=== PATIENT | male | born 1940 | race Caucasian/White ===

== ENCOUNTER 2016-05-27 19:46 | Emergency (ER) | payer MEDICARE, OTHER ==
--- NOTE | 2016-05-27 19:36 | EDM.PDOC ---
ED HPI HEAD INJURY - General Chief Complaint: Head Injury Stated Complaint: LACERATION Time Seen by Provider: 05/27/16 19:36 Source of Information: Reports: Patient, Family History Limitations: Reports: No limitations - History of Present Illness INITIAL COMMENTS - FREE TEXT/NARRATIVE: ED with family, reported to have fallen outside going to garage and slipped on ice hit back of head, Patient doesnt remember fall, noted he was not back in house as soon as should be and garbage lid he had gone after was still in back yard. Patient was up right when she got out side, Confused, some difficulty getting back to house. Location: Reports: occipital Severity: moderate Place of Occurrence: home - Related Data Allergies/ADRs: Allergies Allergy/AdvReac Type Severity Reaction Status Date / Time hydrocodone Allergy Delusions Verified 05/27/16 19:34 clams Allergy Vomiting Uncoded 05/27/16 19:34 Home Meds: Home Meds Allopurinol [Zyloprim] 100 mg PO DAILY 11/10/13 [History] Fenofibrate Nanocrystallized [Fenofibrate] 108 mg PO BEDTIME 11/10/13 [History] Glucosamine 1 bottle PO DAILY 11/10/13 [History] Lutein 1 cap PO DAILY 11/10/13 [History] Multivitaminn/Minerals 1 tab PO DAILY 11/10/13 [History] Simvastatin [Zocor] 40 mg PO BEDTIME 11/10/13 [History] Testosterone [Fortesta] 60 gm TD DAILY 11/10/13 [History] Apixaban [Eliquis] 5 mg PO BID 05/27/16 [History] Aspirin [Halfprin] 81 mg PO BRK 05/27/16 [History] Citalopram [Celexa] 10 mg PO DAILY 05/27/16 [History] Loratadine 10 mg PO DAILY 05/27/16 [History] Metoprolol Tartrate 12.5 mg PO BID 05/27/16 [History] Tamsulosin HCl [Flomax] 0.4 mg PO DAILY 05/27/16 [History] rOPINIRole HCl [rOPINIRole] 3 mg PO BEDTIME 05/27/16 [History] Social & Family History - Tobacco Use Smoking Status *Q: Never Smoker Second Hand Smoke Exposure: No - Alcohol Use Days Per Week of Alcohol Use: 0 - Recreational Drug Use Recreational Drug Use: No - Living Situation & Occupation Living situation: Reports: , with spouse Occupation: retired ED ROS GENERAL - Review of Systems Review Of Systems: See Below Constitutional: Reports: no symptoms HEENT: Reports: No symptoms Respiratory: Reports: No Symptoms Cardiovascular: Reports: No symptoms GI/Abdominal: Reports: No symptoms Musculoskeletal: Reports: no symptoms. Denies: neck pain, back pain Skin: Reports: bruising (mid forehead), lumps (upper occipital) Psychiatric: Reports: Confusion (immediate post fall, clearing some poor recall of recent events) ED EXAM, HEAD INJURY - Physical Exam Exam: See Below Exam Limited By: No limitations General Appearance: alert, no apparent distress Head: scalp hematoma (upper occipital mild rased 3cm ), facial ecchymosis ( 2 puple vertical lines 1cm between eyebrows equal distance of nose pieces on glasses). No: atraumatic Nexus Criteria: altered level of consciousness, focal neurological deficit. No : posterior, midline cervical tenderness, painful distracting injuries Eyes: bilateral eye: EOMI Ears: normal external exam, normal TMs Nose: normal inspection Throat/Mouth: Normal inspection Neck: non-tender, full range of motion, normal alignment. No: paraspinous muscle tender, spinous processes tender, tenderness, tender midline Respiratory: no respiratory distress, lungs clear, normal breath sounds Cardiovascular: normal peripheral pulses, regular rate, rhythm, no edema GI/Abdominal Exam (Abbreviated): normal bowel sounds Back Exam: normal inspection Extremities: no evidence of injury, normal range of motion Neurologic: network solutions architect II-XII nml as tested, no motor/sensory deficits, alert, other ( poor recall of event, does not remember getting back in to house. SOme clearing of process by discharge as stating last he can recall is feet up in air.). No: oriented x 3 (off date), aphasia, facial droop - Luis Coma Score Best Eye Response (Luis): (4) open spontaneously Best Verbal Response (Luis): (4) confused conversation Best Motor Response (Luis): (6) obeys commands Luis Total: 14 Course - Vital Signs Last Recorded V/S: Last Vital Signs Temp 97.6 F 05/27/16 19:12 Pulse 95 05/27/16 20:44 Resp 16 05/27/16 19:12 BP 178/118 H 05/27/16 20:44 Pulse Ox 99 05/27/16 19:12 - Orders/Labs/Meds Labs: Laboratory Tests 05/27/16 05/27/16 05/27/16 Range/Units 19:30 19:30 19:30 WBC 9.3 (5.0-10.0) 10^3/uL RBC 4.96 (4.6-6.2) 10^6/uL Hgb 15.5 (14.0-18.0) g/dL Hct 46.5 (40.0-54.0) % MCV 93.8 (80-100) fL MCH 31.3 (27.0-34.0) pg MCHC 33.3 (33.0-35.0) g/dL Plt Count 174 (150-450) 10^3/uL Neut % (Auto) 73.7 (42.2-75.2) % Lymph % (Auto) 15.8 L (20.5-50.1) % [place] % (Auto) 9.5 H (2-8) % Eos % (Auto) 0.6 L (1.0-3.0) % Baso % (Auto) 0.4 (0.0-1.0) % PT 11.2 (9.0-12.0) SEC INR 1.1 (0.9-1.2) Sodium 140 (135-145) mmol/L Potassium 3.7 (3.6-5.0) mmol/L Chloride 100 L (101-111) mmol/L Carbon Dioxide 31.0 (21.0-31.0) mmol/L Anion Gap 12.7 BUN 18 (7-18) mg/dL Creatinine 1.4 H (0.6-1.3) mg/dL Est Cr Clr Drug Dosing 47.81 mL/min Estimated GFR (MDRD) 49 BUN/Creatinine Ratio 12.85 Glucose 101 (74-105) mg/dL Calcium 9.3 (8.4-10.2) mg/dl Total Bilirubin 0.4 (0.2-1.0) mg/dL AST 31 (10-42) IU/L ALT 23 (10-60) IU/L Alkaline Phosphatase 40 L (42-121) IU/L Total Protein 7.3 (6.7-8.2) g/dl Albumin 4.3 (3.2-5.5) g/dl Globulin 3.0 Albumin/Globulin Ratio 1.43 Meds: Medications Discontinued Medications Generic Name Dose Route Start Last Admin Trade Name Claire PRN Reason Stop Dose Admin Acetaminophen 650 mg 05/27/16 20:37 05/27/16 20:54 Tylenol PO 05/27/16 20:38 650 mg NOW ONE Administration Metoprolol Tartrate 2.5 mg 05/27/16 20:36 05/27/16 20:44 Lopressor IVPUSH 05/27/16 20:37 2.5 mg ONETIME ONE Administration - Re-Assessments/Exams Free Text/Narrative Re-Assessment/Exam: 05/27/16 20:[address] Fady Guzman ED accepting of patient in transfer, Tx via [facility] at discharge 15. BP elevated, slight improvment with lopressor. PERRLA. appropriate conversation with and daughter. 05/29/16 07:27 Departure - Departure Time of Disposition: 21:05 Disposition: DC/Tfer to Acute Hospital 02 Condition: undetermined Clinical Impression: Concussion injury of brain, Intracranial hemorrhage Referrals: Salud Odom PA-C [Primary Care Provider] - Forms: ED Department Discharge
[2016-05-27] MEDS ORDERED: Metoprolol Tartrate 5 MG/5 ML SDV IVPUSH ONE (20:36)
[2016-05-27] MEDS ORDERED: Acetaminophen 325 MG Tab PO ONE (20:37)
== END 2016-05-27 21:05 ==
LOC: DL.ED 19:46
DX: S06.340A Traumatic hemorrhage of right cerebrum without loss of consciousness, initial encounter (principal); Z88.8 Allergy status to other drugs, medicaments and biological substances; Z79.899 Other long term (current) drug therapy; W00.9XXA Unspecified fall due to ice and snow, initial encounter
CPT/HCPCS: 36415; 70450; 80053; 85025; 85610; 96374; 99284; 99285; A9270; J3490

== ENCOUNTER 2018-07-18 09:54 | Emergency (ER) | payer OTHER, MEDICARE ==
[2018-07-18] MEDS ORDERED: Oxymetazoline 0.05% Nasal Spray 15 ML Bottle NAS ONE (09:59)
--- NOTE | 2018-07-18 10:39 | EDM.PDOC ---
ED HPI GENERAL MEDICAL PROBLEM - General Chief Complaint: ENT Problem Stated Complaint: BAD NOSE BLEED Time Seen by Provider: 07/18/18 10:15 Source of Information: Reports: Patient History Limitations: Reports: No Limitations - History of Present Illness INITIAL COMMENTS - FREE TEXT/NARRATIVE: This 77 yo male patient reports to the ED with a 2 hour history of a nosebleed. The patient reports he is on Eliquis and has not been able to stop the bleeding at this time. The patient reports he has been attempting to apply direct pressure with only a brief period when the bleeding slowed down. Onset: Today Duration: Hour(s): (2), Constant Location: Reports: Face Quality: Reports: Other Severity: Severe Improves with: Reports: None Worsens with: Reports: None Context: Reports: Other Associated Symptoms: Reports: No Other Symptoms - Related Data Allergies Allergy/AdvReac Type Severity Reaction Status Date / Time hydrocodone Allergy Delusions Verified 05/27/16 19:34 clams Allergy Vomiting Uncoded 05/27/16 19:34 Home Meds: Home Meds Allopurinol [Zyloprim] 100 mg PO DAILY 11/10/13 [History] Fenofibrate Nanocrystallized [Fenofibrate] 108 mg PO BEDTIME 11/10/13 [History] Glucosamine 1 bottle PO DAILY 11/10/13 [History] Lutein 1 cap PO DAILY 11/10/13 [History] Multivitaminn/Minerals 1 tab PO DAILY 11/10/13 [History] Simvastatin [Zocor] 40 mg PO BEDTIME 11/10/13 [History] Testosterone [Fortesta] 60 gm TD DAILY 11/10/13 [History] Apixaban [Eliquis] 5 mg PO BID 05/27/16 [History] Aspirin [Halfprin] 81 mg PO BRK 05/27/16 [History] Citalopram [Celexa] 10 mg PO DAILY 05/27/16 [History] Loratadine 10 mg PO DAILY 05/27/16 [History] Metoprolol Tartrate 12.5 mg PO BID 05/27/16 [History] Tamsulosin HCl [Flomax] 0.4 mg PO DAILY 05/27/16 [History] rOPINIRole HCl [rOPINIRole] 3 mg PO BEDTIME 05/27/16 [History] Social & Family History - Living Situation & Occupation Living situation: Reports: , with Spouse Occupation: Retired ED ROS ENT - Review of Systems Review Of Systems: ROS reveals no pertinent complaints other than HPI. ED EXAM, ENT - Physical Exam Exam: See Below Exam Limited By: No Limitations General Appearance: Alert, WD/WN, Moderate Distress Eye Exam: Bilateral Eye: EOMI, Normal Inspection, PERRL Ears: Normal External Exam, Normal Canal, Hearing Grossly Normal, Normal TMs Nose: Active Bleeding (left nare), Other (Applied bilateral nasal rockets with no change. The left nasal rocket was removed and replaced with a nasal rocket soaked in TXA. The patient continued to bleed. ) Mouth/Throat: Normal Inspection, Normal Gums, Normal Lips, Normal Oropharynx, Normal Teeth Head: Atraumatic, Normocephalic Neck: Normal Inspection, Supple, Non-Tender, Full Range of Motion Respiratory/Chest: No Respiratory Distress, Lungs Clear, Normal Breath Sounds, No Accessory Muscle Use, Chest Non-Tender Cardiovascular: Normal Peripheral Pulses, Regular Rate, Rhythm, No Edema, No Gallop, No JVD, No Murmur, No Rub GI/Abdominal: Normal Bowel Sounds, Soft, Non-Tender, No Organomegaly, No Distention, No Abnormal Bruit, No Mass (Male) Exam: Deferred Rectal (Males) Exam: Deferred Back: Normal Inspection, Full Range of Motion Extremities: Normal Inspection, Normal Range of Motion, Non-Tender, No Pedal Edema, Normal Capillary Refill Neurological: Alert, Oriented, CN II-XII Intact, Normal Cognition, Normal Gait, Normal Reflexes, No Motor/Sensory Deficits Psychiatric: Normal Affect, Normal Mood Skin: Warm, Dry, Intact, Normal Color, No Rash Lymphatic: No Adenopathy Course - Vital Signs Last Recorded V/S: Last Vital Signs Temp 36.8 C 07/18/18 10:15 Pulse 64 07/18/18 10:15 Resp 18 07/18/18 10:15 BP 149/108 H 07/18/18 10:15 Pulse Ox 99 07/18/18 10:15 - Orders/Labs/Meds Meds: Medications Discontinued Medications Generic Name Dose Route Start Last Admin Trade Name Freq PRN Reason Stop Dose Admin Oxymetazoline HCl 1 ml 07/18/18 09:59 Afrin Original 0.05% Nasal [place] MELLISA 07/18/18 10:00 ONETIME ONE Departure - Departure Time of Disposition: 10:39 Disposition: DC/Tfer to Acute Hospital 02 Condition: Serious Clinical Impression: Epistaxis - Discharge Information *PRESCRIPTION DRUG MONITORING PROGRAM REVIEWED*: Not Applicable *COPY OF PRESCRIPTION DRUG MONITORING REPORT IN PATIENT ELLE: Not Applicable Forms: Interfacility Transfer EMTALA Care Plan Goals: Discussed the patient's history, medications and treatments with Dr. Rueda. Dr. Rueda accepted the patient for continued evaluation and management. Initially 2 rhino rockets were placed, but the patient continued to bleed. The left rhino rocket was removed and replaced with a rhino rocket soaked in TXA, but the patient continued to bleed. The patient was transferred by [facility] to [facility] in [place].
[2018-07-18 11:26] LABS: ANION GAP 16.8
== END 2018-07-18 10:55 ==
LOC: DL.ED 09:54
DX: R04.0 Epistaxis (principal); Z79.899 Other long term (current) drug therapy; Z88.6 Allergy status to analgesic agent; Z91.09 Other allergy status, other than to drugs and biological substances
CPT/HCPCS: 36415; 80053; 85025; 85610; 99284; A9270

== ENCOUNTER 2020-01-15 13:27 | Inpatient (IN) | payer MEDICARE, OTHER ==
[2020-01-15] MEDS ORDERED: Zolpidem 5 MG Tab PO PRN (13:52)
[2020-01-15] MEDS ORDERED: Ondansetron 4 MG Tab.DIS PO PRN (13:52)
[2020-01-15] MEDS ORDERED: Ondansetron 4 MG/2 ML SDV IVPUSH PRN (13:52)
[2020-01-15] MEDS ORDERED: Heparin Sodium 5,000 Units/ML Vial SUBCUT SCH (14:00)
[2020-01-15] MEDS: Acetaminophen 325 MG Tab PO PRN (14:58)
[2020-01-15 15:01] LABS: ANION GAP 13.8 mEq/L (7-13); CHLORIDE,CL 97 mmol/L (98-107); SODIUM,NA 133 mmol/L (136-145)
--- NOTE | 2020-01-15 15:24 | PCM.HP ---
H&P History of Present Illness - General Date of Service: 01/15/20 Admit Problem/Dx: Admission Diagnosis/Problem Admission Diagnosis/Problem Shortness of breath Source of Information: Patient - History of Present Illness Initial Comments - Free Text/Narative: 79-year-old gentleman with a history of TIA, dyslipidemia, sleep apnea on CPAP, atrial fibrillation, hypertension, dm. The patient had covid 19 exposure. Presented with shortness of breath to the clinic. he gives a history of few days worsening cough, fever, shortness of breath. Was noted to have 84% room air saturation in the clinic. - Related Data Allergies/Adverse Reactions: Allergies Allergy/AdvReac Type Severity Reaction Status Date / Time hydrocodone Allergy Delusions Verified 01/15/20 14:37 oxycodone Allergy Disorientat Verified 01/15/20 14:37 ion clams Allergy Vomiting Uncoded 01/15/20 14:37 Home Medications: Home Meds Glucosamine 1 bottle PO DAILY 11/10/13 [History] Lutein 1 cap PO DAILY 11/10/13 [History] Multivitaminn/Minerals 1 tab PO DAILY 11/10/13 [History] Simvastatin [Zocor] 40 mg PO BEDTIME 11/10/13 [History] allopurinoL [Zyloprim] 100 mg PO DAILY 11/10/13 [History] Apixaban [Eliquis] 5 mg PO BID 05/27/16 [History] Aspirin [Halfprin] 81 mg PO BRK 05/27/16 [History] Citalopram [Celexa] 10 mg PO DAILY 05/27/16 [History] Loratadine 10 mg PO DAILY 05/27/16 [History] Metoprolol Tartrate 12.5 mg PO BID 05/27/16 [History] Tamsulosin HCl [Flomax] 0.4 mg PO DAILY 05/27/16 [History] rOPINIRole HCl [rOPINIRole] 3 mg PO BEDTIME 05/27/16 [History] Fenofibrate 108 mg PO BEDTIME 01/15/20 [History] Furosemide 40 mg PO DAILY 01/15/20 [History] Gabapentin [Neurontin] 300 mg PO BEDTIME 01/15/20 [History] glipiZIDE [Glucotrol] 5 mg PO BID 01/15/20 [History] Past Medical History HEENT History: Reports: Cataract, Impaired Vision Other HEENT History: wears glasses Cardiovascular History: Reports: Afib, High Cholesterol, Hypertension Respiratory History: Reports: Sleep Apnea Other Respiratory History: sleeps with cpap machine Gastrointestinal History: Reports: GERD Other Gastrointestinal History: rectal bleeding requiring blood transfusions Genitourinary History: Reports: Prostate Disorder Musculoskeletal History: Reports: Arthritis, Fracture, Gout Other Musculoskeletal History: hands and knees, uses glycosamine, 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 Psychiatric History: Reports: Anxiety Immunologic History: Reports: None Oncologic (Cancer) History: Reports: None Dermatologic History: Reports: None - Infectious Disease History Infectious Disease History: Reports: Chicken Pox, Measles, Mumps - Past Surgical History HEENT Surgical History: Reports: Cataract Surgery, Eye Surgery Cardiovascular Surgical History: Reports: None, Other (See Below) Other Cardiovascular Surgeries/Procedures: cardioversion Respiratory Surgical History: Reports: None GI Surgical History: Reports: Appendectomy, Cholecystectomy Male Surgical History: Reports: None Musculoskeletal Surgical History: Reports: None Social & Family History - Caffeine Use Caffeine Use: Reports: Other Other Caffeine Use: mostly decaff coffee - Living Situation & Occupation Living situation: Reports: , with Spouse Occupation: Retired H&P Review of Systems - Review of Systems: Review Of Systems: See Below General: Reports: Fever, Chills Pulmonary: Reports: Shortness of Breath Cardiovascular: Denies: Chest Pain, Edema Gastrointestinal: Denies: Abdominal Pain Psychiatric: Denies: Confusion Exam - Exam Exam: See Below - Vital Signs Vital Signs: Last Vital Signs Temp 100.2 F 01/15/20 13:53 Pulse 101 H 01/15/20 13:53 Resp 20 01/15/20 13:53 BP 117/68 01/15/20 13:53 Pulse Ox 93 L 01/15/20 13:53 Weight: 240 lb - Exam Quality Assessment: Supplemental Oxygen General: Alert, Oriented Neck: Supple Lungs: Normal Respiratory Effort, Decreased Breath Sounds Cardiovascular: Irregular Rhythm GI/Abdominal Exam: Normal Bowel Sounds, Soft, Non-Tender, Other (obese) Skin: Warm, Dry Neuro Extensive - Mental Status: Alert, Oriented x3, Normal Mood/Affect Psychiatric: Alert, Normal Affect, Normal Mood - Patient Data Lab Results Last 24 hrs: Laboratory Results - last 24 hr 11/11/2501/15/20 01/15/20 Range/Units 13:55 14:30 14:30 WBC 6.2 (5.0-10.0) 10^3/uL RBC 3.96 L (4.6-6.2) 10^6/uL Hgb 12.5 L D (14.0-18.0) g/dL Hct 36.7 L (40.0-54.0) % MCV 92.7 (80-100) fL MCH 31.6 (27.0-34.0) pg MCHC 34.1 (33.0-35.0) g/dL Plt Count 163 (150-450) 10^3/uL Neut % (Auto) 84.1 H (42.2-75.2) % Lymph % (Auto) 6.3 L (20.5-50.1) % [place] % (Auto) 9.4 H (2-8) % Eos % (Auto) 0.0 L (1.0-3.0) % Baso % (Auto) 0.2 (0.0-1.0) % D-Dimer, Quantitative 900 H (0-400) ng/mL Sodium (136-145) mmol/L Potassium (3.5-5.1) mmol/L Chloride (98-107) mmol/L Carbon Dioxide (21-32) mmol/L Anion Gap (7-13) mEq/L BUN (7-18) mg/dL Creatinine (0.70-1.30) mg/dL Est Cr Clr Drug Dosing mL/min Estimated GFR (MDRD) Glucose (74-99) mg/dL Calcium (8.5-10.1) mg/dL Troponin I (0.000-0.056) ng/mL B-Natriuretic Peptide (0-100) pg/ml SARS CoV-2 RNA Rapid DORITA Positive H (NEGATIVE) 01/15/20 Range/Units 14:30 WBC (5.0-10.0) 10^3/uL RBC (4.6-6.2) 10^6/uL Hgb (14.0-18.0) g/dL Hct (40.0-54.0) % MCV (80-100) fL MCH (27.0-34.0) pg MCHC (33.0-35.0) g/dL Plt Count (150-450) 10^3/uL Neut % (Auto) (42.2-75.2) % Lymph % (Auto) (20.5-50.1) % [place] % (Auto) (2-8) % Eos % (Auto) (1.0-3.0) % Baso % (Auto) (0.0-1.0) % D-Dimer, Quantitative (0-400) ng/mL Sodium 133 L (136-145) mmol/L Potassium 3.8 (3.5-5.1) mmol/L Chloride 97 L (98-107) mmol/L Carbon Dioxide 26 (21-32) mmol/L Anion Gap 13.8 H (7-13) mEq/L BUN 26 H (7-18) mg/dL Creatinine 1.62 H (0.70-1.30) mg/dL Est Cr Clr Drug Dosing 38.73 mL/min Estimated GFR (MDRD) 41 Glucose 97 (74-99) mg/dL Calcium 8.5 (8.5-10.1) mg/dL Troponin I < 0.017 (0.000-0.056) ng/mL B-Natriuretic Peptide 84 (0-100) pg/ml SARS CoV-2 RNA Rapid DORITA (NEGATIVE) Result Diagrams: 01/15/20 14:30 01/15/20 14:30 - Problem List (1) Pneumonia due to COVID-19 virus SNOMED Code(s): 617740702903406946 ICD Code: U07.1 - COVID-19; J12.89 - OTHER VIRAL PNEUMONIA Status: Acute Current Visit: Yes (2) Acute hypoxemic respiratory failure SNOMED Code(s): 804696127 ICD Code: J96.01 - ACUTE RESPIRATORY FAILURE WITH HYPOXIA Status: Acute Current Visit: Yes (3) Afib SNOMED Code(s): 89815036 ICD Code: I48.91 - UNSPECIFIED ATRIAL FIBRILLATION Status: Acute Current Visit: Yes (4) Diabetes SNOMED Code(s): 65667986 ICD Code: E11.9 - TYPE 2 DIABETES MELLITUS WITHOUT COMPLICATIONS Status: Acute Current Visit: Yes (5) RODO on CPAP SNOMED Code(s): 16564121 ICD Code: G47.33 - OBSTRUCTIVE SLEEP APNEA (ADULT) (PEDIATRIC); Z99.89 - DEPENDENCE ON OTHER ENABLING MACHINES AND DEVICES Status: Acute Current Visit: Yes Problem List Initiated/Reviewed/Updated: Yes Orders Last 24hrs: Active Orders 24 hr Category Date Time Status Patient Status [ADT] Routine ADT 01/15/20 13:53 Active Oxygen Therapy [RC] PRN Care 01/15/20 13:53 Active Peripheral IV Care [RC] . DIRECTED Care 01/15/20 13:57 Active Up With Assistance [RC] ASDIRECTED Care 01/15/20 13:52 Active VTE/DVT Education [RC] PER UNIT ROUTINE Care 01/15/20 13:53 Active Vital Signs [RC] Q4H Care 01/15/20 13:53 Active Regular Diet [DIET] Diet 01/15/20 Dinner Active Chest 1V Frontal [CR] Routine Exams 01/15/20 14:36 Ordered Acetaminophen [TylenoL] Med 01/15/20 13:52 Active 650 mg PO Q4H PRN Heparin Sodium Med 01/15/20 14:00 Pending 5,000 units SUBCUT Q8HR Ondansetron [Zofran ODT] Med 01/15/20 13:52 Active 4 mg PO Q6H PRN Ondansetron [Zofran] Med 01/15/20 13:52 Active 4 mg IVPUSH Q6H PRN Sodium Chloride 0.9% [Saline Flush] Med 01/15/20 13:52 Active 10 ml FLUSH ASDIRECTED PRN Zolpidem [Ambien] Med 01/15/20 13:52 Active 5 mg PO BEDTIME PRN Peripheral IV Insertion Adult [OM.PC] Routine Oth 01/15/20 13:52 Ordered Saline Lock Insert [OM.PC] Routine Oth 01/15/20 13:52 Ordered Resuscitation Status Routine Resus Stat 01/15/20 13:52 Ordered Medication Orders Acetaminophen (Tylenol) 650 mg PO Q4H PRN PRN Reason: Pain (Mild 1-3)/fever Last Admin: 01/15/20 14:58 Dose: 650 mg Documented by: EROS Heparin Sodium (Porcine) (Heparin Sodium) 5,000 units SUBCUT Q8HR OSEI Ondansetron HCl (Zofran Odt) 4 mg PO Q6H PRN PRN Reason: nausea, able to take PO Ondansetron HCl (Zofran) 4 mg IVPUSH Q6H PRN PRN Reason: Nausea/Vomiting Sodium Chloride (Saline Flush) 10 ml FLUSH ASDIRECTED PRN PRN Reason: Keep Vein Open Zolpidem Tartrate (Ambien) 5 mg PO BEDTIME PRN PRN Reason: Sleep Assessment/Plan Comment:: presented with shortness of breath, cough, fever. Noted to have hypoxemia in the clinic. Acute hypoxemic respiratory failure secondary to Covid 19 pneumonia Supplement oxygen as needed Covid 19 pneumonia Known exposure symptoms started around 10 january Positive covid 19 screen on 01/13 pulmonary symptoms of cough, sob associated with hypoxemia 84% on RA 01/14 in clinic LFT,. pending Renal fx: gfr>30 on admission treat with Remdesivir 01/14- follow renal fx. Dexamethasone 01/14- Plasma 01/14 and 01/15 evaluate for concurrent bacterial infections Follow pro-calcitonin levels In the meantime hold Abx Ddimer is high DVT prophylaxis with Apixaban Diabetes Hold metformin Continue glipizide Follow blood sugars Use supplemental insulin and hypoglycemia treatment as needed Obstructive sleep apnea Use CPAP at night Coronary artery disease Continue aspirin, metoprolol, Hold statin while on remdesivir Atrial fibrillation Rate control with metoprolol Continue anticoagulation with apixaban Discussed CODE STATUS with patient on admission Patient elects full CODE STATUS.
[2020-01-15] MEDS ORDERED: 50% Dextrose in Water 50 ML Syringe IVPUSH PRN (15:28)
[2020-01-15] MEDS ORDERED: Glucagon,Human Recombinant 1 MG Vial IM PRN (15:28)
[2020-01-15] MEDS ORDERED: 50% Dextrose in Water 50 ML Syringe IV PRN (15:28)
--- NOTE | 2020-01-15 15:39 | CR ---
EXAMINATION: Chest 1V Frontal SEX: Male AGE: 79 years CLINICAL HISTORY: 79-year-old HYPOXIC male. No comparison films immediately available for this hospitalized patient. Interpretation: Abnormal. 1. Subtle patchy nonconsolidated densities periphery of right mid lung and left lung base. Covid test? 2. Normal cardiac silhouette (size and configuration). No pulmonary vascular congestion, cephalization of flow or alveolar edema. 3. No lung mass or hilar/mediastinal lymphadenopathy. 4. Blunting of the right costophrenic sulcus that may represent small dependent pleural effusion or old pleural reactive scarring. 5. No pneumothorax or pneumomediastinum. Midline tracheal bronchial airway unremarkable.
[2020-01-15] MEDS: Insulin Lispro 100 Units/ML 3 ML Vial SUBCUT SCH ×2 (17:30→21:21)
[2020-01-15] MEDS: Sodium Chloride 0.9% 10 ML Syringe IV SCH (18:21)
[2020-01-15] MEDS ORDERED: ROPINIROLE HCL 3 MG PO SCH (21:00)
[2020-01-15] MEDS ORDERED: glipiZIDE 5 MG Tab PO SCH (21:00)
[2020-01-15] MEDS: rOPINIRole 2 MG Tab PO SCH (21:20)
[2020-01-15] MEDS: Gabapentin 300 MG Cap PO SCH (21:20)
[2020-01-15] MEDS: Apixaban 5 MG Tab PO SCH (21:20)
[2020-01-15] MEDS: Metoprolol Tartrate 25 MG Tab PO SCH (21:21)
[2020-01-16 07:27] LABS: ANION GAP 14.7 mEq/L (7-13)
[2020-01-16] MEDS: Sodium Chloride 0.9% 10 ML Syringe FLUSH PRN ×3 (08:33→15:49)
[2020-01-16] MEDS: Insulin Lispro 100 Units/ML 3 ML Vial SUBCUT SCH ×4 (08:34→21:24)
[2020-01-16] MEDS: Citalopram 20 MG Tab PO SCH (08:34)
[2020-01-16] MEDS: Loratadine 10 MG Tab PO SCH (08:35)
[2020-01-16] MEDS: rOPINIRole 2 MG Tab PO SCH ×3 (08:35→21:22)
[2020-01-16] MEDS: Metoprolol Tartrate 25 MG Tab PO SCH ×2 (08:35→21:22)
[2020-01-16] MEDS: Multivitamins, Therapeutic with Minerals Tab PO SCH (08:36)
[2020-01-16] MEDS: Allopurinol 100 MG Tab PO SCH (08:37)
[2020-01-16] MEDS: Tamsulosin 0.4 MG Cap.ER PO SCH (08:37)
[2020-01-16] MEDS: Acetaminophen 325 MG Tab PO PRN ×2 (08:37→23:49)
[2020-01-16] MEDS: Apixaban 5 MG Tab PO SCH ×2 (08:37→21:22)
--- NOTE | 2020-01-16 16:02 | PCM.PN ---
- General Info Date of Service: 01/16/20 Subjective Update: feeling better. no fever last night. Shortness of breath is better but still present. Occasional cough. No sputum. Has remained on oxygen. - Review of Systems General: Denies: Fever Pulmonary: Reports: Shortness of Breath Cardiovascular: Denies: Chest Pain, Edema Genitourinary: Denies: Dysuria, Hematuria - Patient Data Vitals - Most Recent: Last Vital Signs Temp 98.9 F 01/16/20 12:09 Pulse 89 01/16/20 12:09 Resp 20 01/16/20 12:09 BP 122/75 01/16/20 12:09 Pulse Ox 94 L 01/16/20 12:09 Weight - Most Recent: 240 lb I&O - Last 24 Hours: Intake & Output 01/16/20 01/16/20 01/16/20 06:59 14:59 22:59 Intake Total 1432 Balance 1432 Lab Results Last 24 Hours: Laboratory Results - last 24 hr 01/15/20 01/15/20 01/15/20 Range/Units 14:30 14:30 14:30 WBC (5.0-10.0) 10^3/uL RBC (4.6-6.2) 10^6/uL Hgb (14.0-18.0) g/dL Hct (40.0-54.0) % MCV (80-100) fL MCH (27.0-34.0) pg MCHC (33.0-35.0) g/dL Plt Count (150-450) 10^3/uL Neut % (Auto) (42.2-75.2) % Lymph % (Auto) (20.5-50.1) % Smyth % (Auto) (2-8) % Eos % (Auto) (1.0-3.0) % Baso % (Auto) (0.0-1.0) % D-Dimer, Quantitative (0-400) ng/mL Sodium (136-145) mmol/L Potassium (3.5-5.1) mmol/L Chloride (98-107) mmol/L Carbon Dioxide (21-32) mmol/L Anion Gap (7-13) mEq/L BUN (7-18) mg/dL Creatinine (0.70-1.30) mg/dL Est Cr Clr Drug Dosing mL/min Estimated GFR (MDRD) Glucose (74-99) mg/dL POC Glucose (83-110) mg/dl Lactic Acid 1.6 (0.4-2.0) mmol/L Calcium (8.5-10.1) mg/dL Ferritin (26-388) mg/mL Total Bilirubin 0.6 (0.2-1.0) mg/dL Direct Bilirubin 0.2 (0.0-0.2) mg/dL Indirect Bilirubin 0.4 AST 54 H (15-37) U/L ALT 29 (16-63) U/L Alkaline Phosphatase 48 (46-116) U/L Total Protein 6.9 (6.4-8.2) g/dL Albumin 2.7 L (3.4-5.0) g/dL Globulin 4.2 Albumin/Globulin Ratio 0.64 Blood Type A POSITIVE 01/15/20 01/15/20 01/16/20 Range/Units 16:27 21:18 06:33 WBC 5.9 (5.0-10.0) 10^3/uL RBC 4.01 L (4.6-6.2) 10^6/uL Hgb 12.4 L (14.0-18.0) g/dL Hct 37.2 L (40.0-54.0) % MCV 92.8 (80-100) fL MCH 30.9 (27.0-34.0) pg MCHC 33.3 (33.0-35.0) g/dL Plt Count 186 (150-450) 10^3/uL Neut % (Auto) 78.2 H (42.2-75.2) % Lymph % (Auto) 11.4 L (20.5-50.1) % Smyth % (Auto) 10.0 H (2-8) % Eos % (Auto) 0.2 L (1.0-3.0) % Baso % (Auto) 0.2 (0.0-1.0) % D-Dimer, Quantitative (0-400) ng/mL Sodium (136-145) mmol/L Potassium (3.5-5.1) mmol/L Chloride (98-107) mmol/L Carbon Dioxide (21-32) mmol/L Anion Gap (7-13) mEq/L BUN (7-18) mg/dL Creatinine (0.70-1.30) mg/dL Est Cr Clr Drug Dosing mL/min Estimated GFR (MDRD) Glucose (74-99) mg/dL POC Glucose 67 L 87 (83-110) mg/dl Lactic Acid (0.4-2.0) mmol/L Calcium (8.5-10.1) mg/dL Ferritin (26-388) mg/mL Total Bilirubin (0.2-1.0) mg/dL Direct Bilirubin (0.0-0.2) mg/dL Indirect Bilirubin AST (15-37) U/L ALT (16-63) U/L Alkaline Phosphatase (46-116) U/L Total Protein (6.4-8.2) g/dL Albumin (3.4-5.0) g/dL Globulin Albumin/Globulin Ratio Blood Type 01/16/20 01/16/20 01/16/20 Range/Units 06:33 06:33 06:33 WBC (5.0-10.0) 10^3/uL RBC (4.6-6.2) 10^6/uL Hgb (14.0-18.0) g/dL Hct (40.0-54.0) % MCV (80-100) fL MCH (27.0-34.0) pg MCHC (33.0-35.0) g/dL Plt Count (150-450) 10^3/uL Neut % (Auto) (42.2-75.2) % Lymph % (Auto) (20.5-50.1) % Smyth % (Auto) (2-8) % Eos % (Auto) (1.0-3.0) % Baso % (Auto) (0.0-1.0) % D-Dimer, Quantitative 1410 H (0-400) ng/mL Sodium 134 L (136-145) mmol/L Potassium 3.7 (3.5-5.1) mmol/L Chloride 98 (98-107) mmol/L Carbon Dioxide 25 (21-32) mmol/L Anion Gap 14.7 H (7-13) mEq/L BUN 27 H (7-18) mg/dL Creatinine 1.64 H (0.70-1.30) mg/dL Est Cr Clr Drug Dosing 38.26 mL/min Estimated GFR (MDRD) 41 Glucose 92 (74-99) mg/dL POC Glucose (83-110) mg/dl Lactic Acid (0.4-2.0) mmol/L Calcium 8.5 (8.5-10.1) mg/dL Ferritin 436 H (26-388) mg/mL Total Bilirubin 0.6 (0.2-1.0) mg/dL Direct Bilirubin 0.2 (0.0-0.2) mg/dL Indirect Bilirubin 0.4 AST 61 H (15-37) U/L ALT 30 (16-63) U/L Alkaline Phosphatase 51 (46-116) U/L Total Protein 6.7 (6.4-8.2) g/dL Albumin 2.6 L (3.4-5.0) g/dL Globulin 4.1 Albumin/Globulin Ratio 0.63 Blood Type 01/16/20 01/16/20 Range/Units 08:12 12:08 WBC (5.0-10.0) 10^3/uL RBC (4.6-6.2) 10^6/uL Hgb (14.0-18.0) g/dL Hct (40.0-54.0) % MCV (80-100) fL MCH (27.0-34.0) pg MCHC (33.0-35.0) g/dL Plt Count (150-450) 10^3/uL Neut % (Auto) (42.2-75.2) % Lymph % (Auto) (20.5-50.1) % Smyth % (Auto) (2-8) % Eos % (Auto) (1.0-3.0) % Baso % (Auto) (0.0-1.0) % D-Dimer, Quantitative (0-400) ng/mL Sodium (136-145) mmol/L Potassium (3.5-5.1) mmol/L Chloride (98-107) mmol/L Carbon Dioxide (21-32) mmol/L Anion Gap (7-13) mEq/L BUN (7-18) mg/dL Creatinine (0.70-1.30) mg/dL Est Cr Clr Drug Dosing mL/min Estimated GFR (MDRD) Glucose (74-99) mg/dL POC Glucose 83 102 (83-110) mg/dl Lactic Acid (0.4-2.0) mmol/L Calcium (8.5-10.1) mg/dL Ferritin (26-388) mg/mL Total Bilirubin (0.2-1.0) mg/dL Direct Bilirubin (0.0-0.2) mg/dL Indirect Bilirubin AST (15-37) U/L ALT (16-63) U/L Alkaline Phosphatase (46-116) U/L Total Protein (6.4-8.2) g/dL Albumin (3.4-5.0) g/dL Globulin Albumin/Globulin Ratio Blood Type Jayro Results Last 24 Hours: Microbiology 01/15/20 14:30 Aerobic Blood Culture - Preliminary Blood - Venous - Iv Start NO GROWTH AFTER 1 DAY Anaerobic Blood Culture - Final Med Orders - Current: Current Medications Acetaminophen (Tylenol) 650 mg PO Q4H PRN PRN Reason: Pain (Mild 1-3)/fever Last Admin: 01/16/20 08:37 Dose: 650 mg Documented by: Allopurinol (Zyloprim) 100 mg PO DAILY [facility] Last Admin: 01/16/20 08:37 Dose: 100 mg Documented by: Apixaban (Eliquis) 5 mg PO BID [facility] Last Admin: 01/16/20 08:37 Dose: 5 mg Documented by: Aspirin (Halfprin) 81 mg PO BEDTIME [facility] Citalopram Hydrobromide (Celexa) 10 mg PO DAILY [facility] Last Admin: 01/16/20 08:34 Dose: 10 mg Documented by: Dextrose/Water (Dextrose 50% In Water) 25 ml IVPUSH Q1H PRN PRN Reason: blood sugar <70 Dextrose/Water (Dextrose 50% In Water) 50 ml IV ASDIRECTED PRN PRN Reason: Hypoglycemia Gabapentin (Neurontin) 300 mg PO BEDTIME [facility] Last Admin: 01/15/20 21:20 Dose: 300 mg Documented by: Glucagon (Glucagen) 1 mg IM ASDIRECTED PRN PRN Reason: Hypoglycemia Remdesivir 100 mg/ Sodium (Chloride) 230 mls @ 230 mls/hr IV Q24H [facility] Stop: 01/19/20 16:59 Last Admin: 01/16/20 15:49 Dose: 230 mls/hr Documented by: Insulin Human Lispro (Humalog) 0 unit SUBCUT WITHMEALSANDBED [facility]; Protocol Last Admin: 01/16/20 12:08 Dose: Not Given Documented by: Loratadine (Claritin) 10 mg PO DAILY [facility] Last Admin: 01/16/20 08:35 Dose: 10 mg Documented by: Metoprolol Tartrate (Lopressor) 12.5 mg PO BID [facility] Last Admin: 01/16/20 08:35 Dose: 12.5 mg Documented by: Multivitamins/Minerals (Vitamins And Minerals) 1 tab PO DAILY [facility] Last Admin: 01/16/20 08:36 Dose: 1 tab Documented by: Ondansetron HCl (Zofran Odt) 4 mg PO Q6H PRN PRN Reason: nausea, able to take PO Ondansetron HCl (Zofran) 4 mg IVPUSH Q6H PRN PRN Reason: Nausea/Vomiting Fenofibrate 54 Mg (Tab *Own Med*) 0 each PO BEDTIME [facility] Ropinirole HCl (Requip) 2 mg PO TID [facility] Last Admin: 01/16/20 15:49 Dose: 2 mg Documented by: Sodium Chloride (Saline Flush) 10 ml FLUSH ASDIRECTED PRN PRN Reason: Keep Vein Open Last Admin: 01/16/20 15:49 Dose: 10 ml Documented by: Sodium Chloride (Saline Flush) 30 ml IV DAILY@1700 [facility] Stop: 01/19/20 17:01 Last Admin: 01/15/20 18:21 Dose: 30 ml Documented by: Tamsulosin HCl (Flomax) 0.4 mg PO DAILY [facility] Last Admin: 01/16/20 08:37 Dose: 0.4 mg Documented by: Zolpidem Tartrate (Ambien) 5 mg PO BEDTIME PRN PRN Reason: Sleep Discontinued Medications Glipizide (Glucotrol) 5 mg PO BID [facility] Last Admin: 01/15/20 21:21 Dose: Not Given Documented by: Heparin Sodium (Porcine) (Heparin Sodium) 5,000 units SUBCUT Q8HR [facility] Last Admin: 01/15/20 17:38 Dose: Not Given Documented by: Remdesivir 200 mg/ Sodium (Chloride) 210 mls @ 210 mls/hr IV ONETIME ONE Stop: 01/15/20 16:59 Last Admin: 01/15/20 16:23 Dose: 210 mls/hr Documented by: - Exam Quality Assessment: Supplemental Oxygen General: Alert, Oriented Neck: Supple Lungs: Normal Respiratory Effort, Decreased Breath Sounds, Wheezing (mild bilateral) Cardiovascular: Regular Rate, Regular Rhythm GI/Abdominal Exam: Normal Bowel Sounds, Soft, Non-Tender Extremities: No Pedal Edema Skin: Warm Psy/Mental Status: Alert, Normal Affect, Normal Mood Sepsis Event Note - Evaluation Sepsis Screening Result: No Definite Risk - Focused Exam Vital Signs: Vital Signs Temp Temp Pulse Pulse Resp BP BP 01/16/20 12:09 98.9 F 89 20 122/75 01/16/20 11:31 98.9 F 88 20 123/78 01/16/20 11:28 97.8 F 90 20 122/71 01/16/20 11:00 99 F 94 20 124/75 01/16/20 10:27 98.9 F 113 H 20 125/78 01/16/20 09:55 98.7 F 92 20 124/77 01/16/20 09:40 99.8 F 93 20 117/70 01/16/20 09:26 99.7 F 97 20 125/71 01/16/20 09:13 99.7 F 96 20 120/72 01/16/20 08:35 95 119/76 01/16/20 08:19 100.0 F 95 22 H 01/16/20 04:00 99.2 F 98 20 115/57 L BP Pulse Ox 01/16/20 12:09 94 L 01/16/20 11:31 94 L 01/16/20 11:28 93 L 01/16/20 11:00 93 L 01/16/20 10:27 92 L 01/16/20 09:55 93 L 01/16/20 09:40 91 L 01/16/20 09:26 91 L 01/16/20 09:13 91 L 01/16/20 08:35 01/16/20 08:19 119/76 90 L 01/16/20 04:00 92 L - Problem List & Annotations (1) Pneumonia due to COVID-19 virus SNOMED Code(s): 399173311084081091 Code(s): U07.1 - COVID-19; J12.89 - OTHER VIRAL PNEUMONIA Status: Acute Current Visit: Yes (2) Acute hypoxemic respiratory failure SNOMED Code(s): 318805015 Code(s): J96.01 - ACUTE RESPIRATORY FAILURE WITH HYPOXIA Status: Acute Current Visit: Yes (3) Afib SNOMED Code(s): 80606204 Code(s): I48.91 - UNSPECIFIED ATRIAL FIBRILLATION Status: Acute Current Visit: Yes (4) Diabetes SNOMED Code(s): 44809911 Code(s): E11.9 - TYPE 2 DIABETES MELLITUS WITHOUT COMPLICATIONS Status: Acute Current Visit: Yes (5) RODO on CPAP SNOMED Code(s): 24682301 Code(s): G47.33 - OBSTRUCTIVE SLEEP APNEA (ADULT) (PEDIATRIC); Z99.89 - DEPENDENCE ON OTHER ENABLING MACHINES AND DEVICES Status: Acute Current Visit: Yes - Problem List Review Problem List Initiated/Reviewed/Updated: Yes - My Orders Last 24 Hours: My Active Orders 01/15/20 15:28 CPAP Adult [RT BiPAP/CPAP] [RC] ASDIRECTED Glucose [Blood Glucose Check, Bedside] [RC] QIDACANDBED Dextrose 50% in Water 25 ml IVPUSH Q1H PRN Dextrose 50% in Water 50 ml IV ASDIRECTED PRN Glucagon,Human Recombinant [GlucaGen] 1 mg IM ASDIRECTED PRN 01/15/20 15:39 Verify Patient Consent Obtain [RC] ASDIRECTED Transfuse Fresh Frozen Plasma [COMM] Routine 01/15/20 15:43 Isolation [COMM] Stat 01/15/20 15:44 CULTURE SPUTUM + SMEAR [RM] Routine 01/15/20 16:02 Patient Status [ADT] Routine 01/15/20 17:00 Sodium Chloride 0.9% [Saline Flush] 30 ml IV DAILY@1700 01/15/20 Dinner Regular Diet [DIET] 01/15/20 18:00 Insulin Lispro [HumaLOG] See Protocol SUBCUT WITHMEALSANDBED 01/15/20 21:00 Apixaban [Eliquis] 5 mg PO BID Gabapentin [Neurontin] 300 mg PO BEDTIME Metoprolol Tartrate [Lopressor] 12.5 mg PO BID rOPINIRole [Requip] 2 mg PO TID 01/16/20 06:33 PROCALCITONIN [REF] DAILY 01/16/20 09:00 Citalopram [Celexa] 10 mg PO DAILY Loratadine [Claritin] 10 mg PO DAILY Multivitamins/Minerals [Vitamins and Minerals] 1 tab PO DAILY Tamsulosin [Flomax] 0.4 mg PO DAILY allopurinoL [Zyloprim] 100 mg PO DAILY 01/16/20 15:40 Transfuse Fresh Frozen Plasma [COMM] Routine 01/16/20 16:00 Remdesivir (Eua) [Remdesivir (EUA)] 100 mg Sodium Chloride 0.9% [Normal Saline] 230 ml IV Q24H 01/16/20 21:00 Aspirin [Halfprin] 81 mg PO BEDTIME Patient's Own Medication [Ptom] 0 each PO BEDTIME 01/17/20 05:11 BASIC METABOLIC PANEL,BMP [CHEM] AM CBC WITH AUTO DIFF [HEME] AM D-DIMER QUANTITATIVE [COAG] AM FERRITIN [CHEM] AM HEPATIC FUNCTION PANEL,HFP [CHEM] AM 01/17/20 15:44 PROCALCITONIN [REF] DAILY 01/18/20 05:11 BASIC METABOLIC PANEL,BMP [CHEM] AM CBC WITH AUTO DIFF [HEME] AM D-DIMER QUANTITATIVE [COAG] AM FERRITIN [CHEM] AM HEPATIC FUNCTION PANEL,HFP [CHEM] AM 01/18/20 15:44 PROCALCITONIN [REF] DAILY 01/19/20 05:11 BASIC METABOLIC PANEL,BMP [CHEM] AM CBC WITH AUTO DIFF [HEME] AM D-DIMER QUANTITATIVE [COAG] AM FERRITIN [CHEM] AM HEPATIC FUNCTION PANEL,HFP [CHEM] AM 01/19/20 15:44 PROCALCITONIN [REF] DAILY 01/20/20 05:11 BASIC METABOLIC PANEL,BMP [CHEM] AM CBC WITH AUTO DIFF [HEME] AM D-DIMER QUANTITATIVE [COAG] AM FERRITIN [CHEM] AM HEPATIC FUNCTION PANEL,HFP [CHEM] AM - Plan Plan:: presented with shortness of breath, cough, fever. Noted to have hypoxemia in the clinic. Acute hypoxemic respiratory failure secondary to Covid 19 pneumonia Supplement oxygen as needed Covid 19 pneumonia Known exposure symptoms started around 10 january Positive covid 19 screen on 01/13 pulmonary symptoms of cough, sob associated with hypoxemia 84% on RA 01/14 in clinic LFT,. pending Renal fx: gfr>30 on admission treat with Remdesivir 01/14- follow renal fx. Dexamethasone 01/14- Plasma 01/15 and 01/16 evaluate for concurrent bacterial infections Follow pro-calcitonin levels In the meantime hold Abx Ddimer is high - DVT prophylaxis with Apixaban Diabetes Hold metformin Continue glipizide Follow blood sugars Use supplemental insulin and hypoglycemia treatment as needed Obstructive sleep apnea Use CPAP at night Coronary artery disease Continue aspirin, metoprolol, Hold statin while on remdesivir Atrial fibrillation Rate control with metoprolol Continue anticoagulation with apixaban Discussed CODE STATUS with patient on admission. Patient elected full CODE STATUS.
[2020-01-16] MEDS: Sodium Chloride 0.9% 10 ML Syringe IV SCH (17:25)
[2020-01-16] MEDS: Gabapentin 300 MG Cap PO SCH (21:22)
[2020-01-16] MEDS: Aspirin 81 MG Tab.EC PO SCH (21:22)
[2020-01-16] MEDS: FENOFIBRATE 54 MG PO SCH (21:24)
[2020-01-17] MEDS: Sodium Chloride 0.9% 10 ML Syringe FLUSH PRN (05:10)
[2020-01-17 07:03] LABS: ANION GAP 11.1 mEq/L (7-13)
[2020-01-17] MEDS: Insulin Lispro 100 Units/ML 3 ML Vial SUBCUT SCH ×4 (09:35→22:02)
[2020-01-17] MEDS: rOPINIRole 2 MG Tab PO SCH ×3 (09:35→22:05)
[2020-01-17] MEDS: Tamsulosin 0.4 MG Cap.ER PO SCH (09:36)
[2020-01-17] MEDS: Loratadine 10 MG Tab PO SCH (09:36)
[2020-01-17] MEDS: Apixaban 5 MG Tab PO SCH ×2 (09:36→22:05)
[2020-01-17] MEDS: Allopurinol 100 MG Tab PO SCH (09:36)
[2020-01-17] MEDS: Multivitamins, Therapeutic with Minerals Tab PO SCH (09:36)
[2020-01-17] MEDS: Metoprolol Tartrate 25 MG Tab PO SCH ×2 (09:41→22:06)
[2020-01-17] MEDS: Citalopram 20 MG Tab PO SCH (09:42)
--- NOTE | 2020-01-17 13:17 | PCM.PN ---
- General Info Date of Service: 01/17/20 Admission Dx/Problem (Free Text): Admission Diagnosis/Problem Admission Diagnosis/Problem Shortness of breath Subjective Update: feeling better. ambulating in room Short of breath with ambulation no fever last night. Shortness of breath is better but still present. Occasional cough. minimal sputum. Has remained on oxygen. Functional Status: Reports: Pain Controlled, Tolerating Diet, Ambulating - Review of Systems General: Reports: Weakness. Denies: Fever Pulmonary: Reports: Shortness of Breath Cardiovascular: Denies: Chest Pain, Edema Gastrointestinal: Denies: Abdominal Pain Genitourinary: Denies: Dysuria - Patient Data Vitals - Most Recent: Last Vital Signs Temp 99.0 F 01/17/20 08:00 Pulse 92 01/17/20 09:41 Resp 22 H 01/17/20 08:00 BP 127/56 L 01/17/20 09:41 Pulse Ox 94 L 01/17/20 08:00 Weight - Most Recent: 240 lb I&O - Last 24 Hours: Intake & Output 01/16/20 01/17/20 01/17/20 22:59 06:59 14:59 Intake Total 503 360 Output Total 550 425 Balance -550 78 360 Lab Results Last 24 Hours: Laboratory Results - last 24 hr 01/15/20 01/16/20 01/16/20 Range/Units 14:30 06:33 16:13 WBC (5.0-10.0) 10^3/uL RBC (4.6-6.2) 10^6/uL Hgb (14.0-18.0) g/dL Hct (40.0-54.0) % MCV (80-100) fL MCH (27.0-34.0) pg MCHC (33.0-35.0) g/dL Plt Count (150-450) 10^3/uL Neut % (Auto) (42.2-75.2) % Lymph % (Auto) (20.5-50.1) % [place] % (Auto) (2-8) % Eos % (Auto) (1.0-3.0) % Baso % (Auto) (0.0-1.0) % D-Dimer, Quantitative (0-400) ng/mL Sodium (136-145) mmol/L Potassium (3.5-5.1) mmol/L Chloride (98-107) mmol/L Carbon Dioxide (21-32) mmol/L Anion Gap (7-13) mEq/L BUN (7-18) mg/dL Creatinine (0.70-1.30) mg/dL Est Cr Clr Drug Dosing mL/min Estimated GFR (MDRD) Glucose (74-99) mg/dL POC Glucose 98 (83-110) mg/dl Calcium (8.5-10.1) mg/dL Ferritin (26-388) mg/mL Total Bilirubin (0.2-1.0) mg/dL Direct Bilirubin (0.0-0.2) mg/dL Indirect Bilirubin AST (15-37) U/L ALT (16-63) U/L Alkaline Phosphatase (46-116) U/L Total Protein (6.4-8.2) g/dL Albumin (3.4-5.0) g/dL Globulin Albumin/Globulin Ratio Procalcitonin 0.19 H 0.20 H (<0.10) ng/mL 01/16/20 01/17/20 01/17/20 Range/Units 21:09 06:25 06:25 WBC 4.3 L (5.0-10.0) 10^3/uL RBC 3.75 L (4.6-6.2) 10^6/uL Hgb 11.6 L (14.0-18.0) g/dL Hct 35.1 L (40.0-54.0) % MCV 93.6 (80-100) fL MCH 30.9 (27.0-34.0) pg MCHC 33.0 (33.0-35.0) g/dL Plt Count 170 (150-450) 10^3/uL Neut % (Auto) 73.4 (42.2-75.2) % Lymph % (Auto) 18.8 L (20.5-50.1) % [place] % (Auto) 7.4 (2-8) % Eos % (Auto) 0.2 L (1.0-3.0) % Baso % (Auto) 0.2 (0.0-1.0) % D-Dimer, Quantitative 1300 H (0-400) ng/mL Sodium (136-145) mmol/L Potassium (3.5-5.1) mmol/L Chloride (98-107) mmol/L Carbon Dioxide (21-32) mmol/L Anion Gap (7-13) mEq/L BUN (7-18) mg/dL Creatinine (0.70-1.30) mg/dL Est Cr Clr Drug Dosing mL/min Estimated GFR (MDRD) Glucose (74-99) mg/dL POC Glucose 123 H (83-110) mg/dl Calcium (8.5-10.1) mg/dL Ferritin (26-388) mg/mL Total Bilirubin (0.2-1.0) mg/dL Direct Bilirubin (0.0-0.2) mg/dL Indirect Bilirubin AST (15-37) U/L ALT (16-63) U/L Alkaline Phosphatase (46-116) U/L Total Protein (6.4-8.2) g/dL Albumin (3.4-5.0) g/dL Globulin Albumin/Globulin Ratio Procalcitonin (<0.10) ng/mL 01/17/20 01/17/20 01/17/20 Range/Units 06:25 06:25 08:30 WBC (5.0-10.0) 10^3/uL RBC (4.6-6.2) 10^6/uL Hgb (14.0-18.0) g/dL Hct (40.0-54.0) % MCV (80-100) fL MCH (27.0-34.0) pg MCHC (33.0-35.0) g/dL Plt Count (150-450) 10^3/uL Neut % (Auto) (42.2-75.2) % Lymph % (Auto) (20.5-50.1) % [place] % (Auto) (2-8) % Eos % (Auto) (1.0-3.0) % Baso % (Auto) (0.0-1.0) % D-Dimer, Quantitative (0-400) ng/mL Sodium 137 (136-145) mmol/L Potassium 4.1 (3.5-5.1) mmol/L Chloride 100 (98-107) mmol/L Carbon Dioxide 30 (21-32) mmol/L Anion Gap 11.1 (7-13) mEq/L BUN 25 H (7-18) mg/dL Creatinine 1.32 H (0.70-1.30) mg/dL Est Cr Clr Drug Dosing 47.54 mL/min Estimated GFR (MDRD) 52 Glucose 97 (74-99) mg/dL POC Glucose 103 (83-110) mg/dl Calcium 8.5 (8.5-10.1) mg/dL Ferritin 515 H (26-388) mg/mL Total Bilirubin 0.6 (0.2-1.0) mg/dL Direct Bilirubin 0.2 (0.0-0.2) mg/dL Indirect Bilirubin 0.4 AST 66 H (15-37) U/L ALT 32 (16-63) U/L Alkaline Phosphatase 50 (46-116) U/L Total Protein 6.4 (6.4-8.2) g/dL Albumin 2.4 L (3.4-5.0) g/dL Globulin 4.0 Albumin/Globulin Ratio 0.60 Procalcitonin (<0.10) ng/mL 01/17/20 Range/Units 12:09 WBC (5.0-10.0) 10^3/uL RBC (4.6-6.2) 10^6/uL Hgb (14.0-18.0) g/dL Hct (40.0-54.0) % MCV (80-100) fL MCH (27.0-34.0) pg MCHC (33.0-35.0) g/dL Plt Count (150-450) 10^3/uL Neut % (Auto) (42.2-75.2) % Lymph % (Auto) (20.5-50.1) % [place] % (Auto) (2-8) % Eos % (Auto) (1.0-3.0) % Baso % (Auto) (0.0-1.0) % D-Dimer, Quantitative (0-400) ng/mL Sodium (136-145) mmol/L Potassium (3.5-5.1) mmol/L Chloride (98-107) mmol/L Carbon Dioxide (21-32) mmol/L Anion Gap (7-13) mEq/L BUN (7-18) mg/dL Creatinine (0.70-1.30) mg/dL Est Cr Clr Drug Dosing mL/min Estimated GFR (MDRD) Glucose (74-99) mg/dL POC Glucose 147 H (83-110) mg/dl Calcium (8.5-10.1) mg/dL Ferritin (26-388) mg/mL Total Bilirubin (0.2-1.0) mg/dL Direct Bilirubin (0.0-0.2) mg/dL Indirect Bilirubin AST (15-37) U/L ALT (16-63) U/L Alkaline Phosphatase (46-116) U/L Total Protein (6.4-8.2) g/dL Albumin (3.4-5.0) g/dL Globulin Albumin/Globulin Ratio Procalcitonin (<0.10) ng/mL [place] Results Last 24 Hours: Microbiology 01/15/20 14:30 Aerobic Blood Culture - Preliminary Blood - Venous - Iv Start NO GROWTH AFTER 1 DAY Anaerobic Blood Culture - Final Med Orders - Current: Current Medications Acetaminophen (Tylenol) 650 mg PO Q4H PRN PRN Reason: Pain (Mild 1-3)/fever Last Admin: 01/16/20 23:49 Dose: 650 mg Documented by: Allopurinol (Zyloprim) 100 mg PO DAILY [facility] Last Admin: 01/17/20 09:36 Dose: 100 mg Documented by: Apixaban (Eliquis) 5 mg PO BID [facility] Last Admin: 01/17/20 09:36 Dose: 5 mg Documented by: Aspirin (Halfprin) 81 mg PO BEDTIME [facility] Last Admin: 01/16/20 21:22 Dose: 81 mg Documented by: Citalopram Hydrobromide (Celexa) 10 mg PO DAILY [facility] Last Admin: 01/17/20 09:42 Dose: 10 mg Documented by: Dextrose/Water (Dextrose 50% In Water) 25 ml IVPUSH Q1H PRN PRN Reason: blood sugar <70 Dextrose/Water (Dextrose 50% In Water) 50 ml IV ASDIRECTED PRN PRN Reason: Hypoglycemia Gabapentin (Neurontin) 300 mg PO BEDTIME [facility] Last Admin: 01/16/20 21:22 Dose: 300 mg Documented by: Glucagon (Glucagen) 1 mg IM ASDIRECTED PRN PRN Reason: Hypoglycemia Remdesivir 100 mg/ Sodium (Chloride) 230 mls @ 230 mls/hr IV Q24H [facility] Stop: 01/19/20 16:59 Last Infusion: 01/16/20 17:24 Dose: Infused Documented by: Insulin Human Lispro (Humalog) 0 unit SUBCUT WITHMEALSANDBED [facility]; Protocol Last Admin: 01/17/20 13:13 Dose: Not Given Documented by: Loratadine (Claritin) 10 mg PO DAILY [facility] Last Admin: 01/17/20 09:36 Dose: 10 mg Documented by: Metoprolol Tartrate (Lopressor) 12.5 mg PO BID [facility] Last Admin: 01/17/20 09:41 Dose: 12.5 mg Documented by: Multivitamins/Minerals (Vitamins And Minerals) 1 tab PO DAILY [facility] Last Admin: 01/17/20 09:36 Dose: 1 tab Documented by: Ondansetron HCl (Zofran Odt) 4 mg PO Q6H PRN PRN Reason: nausea, able to take PO Ondansetron HCl (Zofran) 4 mg IVPUSH Q6H PRN PRN Reason: Nausea/Vomiting Fenofibrate 54 Mg (Tab *Own Med*) 0 each PO BEDTIME [facility] Last Admin: 01/16/20 21:24 Dose: 1 each Documented by: Ropinirole HCl (Requip) 2 mg PO TID [facility] Last Admin: 01/17/20 09:35 Dose: 2 mg Documented by: Sodium Chloride (Saline Flush) 10 ml FLUSH ASDIRECTED PRN PRN Reason: Keep Vein Open Last Admin: 01/17/20 05:10 Dose: 10 ml Documented by: Sodium Chloride (Saline Flush) 30 ml IV DAILY@1700 [facility] Stop: 01/19/20 17:01 Last Admin: 01/16/20 17:25 Dose: 30 ml Documented by: Tamsulosin HCl (Flomax) 0.4 mg PO DAILY [facility] Last Admin: 01/17/20 09:36 Dose: 0.4 mg Documented by: Zolpidem Tartrate (Ambien) 5 mg PO BEDTIME PRN PRN Reason: Sleep Discontinued Medications Glipizide (Glucotrol) 5 mg PO BID [facility] Last Admin: 01/15/20 21:21 Dose: Not Given Documented by: Heparin Sodium (Porcine) (Heparin Sodium) 5,000 units SUBCUT Q8HR [facility] Last Admin: 01/15/20 17:38 Dose: Not Given Documented by: Remdesivir 200 mg/ Sodium (Chloride) 210 mls @ 210 mls/hr IV ONETIME ONE Stop: 01/15/20 16:59 Last Admin: 01/15/20 16:23 Dose: 210 mls/hr Documented by: - Exam General: Alert, Oriented Lungs: Normal Respiratory Effort, Rhonchi Cardiovascular: Regular Rate, Regular Rhythm GI/Abdominal Exam: Normal Bowel Sounds, Soft, Non-Tender Extremities: No Pedal Edema Neurological: No New Focal Deficit Psy/Mental Status: Alert, Normal Affect, Normal Mood Sepsis Event Note - Evaluation Sepsis Screening Result: No Definite Risk - Focused Exam Vital Signs: Vital Signs Temp Temp Pulse Pulse Resp BP BP 01/17/20 09:41 92 127/56 L 01/17/20 08:00 99.0 F 91 22 H 01/17/20 05:04 97.6 F 93 20 142/78 H 01/17/20 04:00 98.1 F 88 20 137/77 01/17/20 03:14 98.1 F 88 20 137/77 01/17/20 02:59 97.4 F 93 18 132/83 01/17/20 02:45 97.6 F 95 18 120/78 BP Pulse Ox Pulse Ox 01/17/20 09:41 01/17/20 08:00 127/56 L 93 L 94 L 01/17/20 05:04 91 L 01/17/20 04:00 91 L 01/17/20 03:14 91 L 01/17/20 02:59 90 L 01/17/20 02:45 85 L - Problem List & Annotations (1) Pneumonia due to COVID-19 virus SNOMED Code(s): 807130192337965869 Code(s): U07.1 - COVID-19; J12.89 - OTHER VIRAL PNEUMONIA Status: Acute Current Visit: Yes (2) Acute hypoxemic respiratory failure SNOMED Code(s): 949080713 Code(s): J96.01 - ACUTE RESPIRATORY FAILURE WITH HYPOXIA Status: Acute Current Visit: Yes (3) Afib SNOMED Code(s): 90449373 Code(s): I48.91 - UNSPECIFIED ATRIAL FIBRILLATION Status: Acute Current Visit: Yes (4) Diabetes SNOMED Code(s): 32775387 Code(s): E11.9 - TYPE 2 DIABETES MELLITUS WITHOUT COMPLICATIONS Status: Acute Current Visit: Yes (5) RODO on CPAP SNOMED Code(s): 00047871 Code(s): G47.33 - OBSTRUCTIVE SLEEP APNEA (ADULT) (PEDIATRIC); Z99.89 - DEPENDENCE ON OTHER ENABLING MACHINES AND DEVICES Status: Acute Current Visit: Yes - Problem List Review Problem List Initiated/Reviewed/Updated: Yes - My Orders Last 24 Hours: My Active Orders 01/16/20 15:40 Transfuse Fresh Frozen Plasma [COMM] Routine 01/16/20 16:00 Remdesivir (Eua) [Remdesivir (EUA)] 100 mg Sodium Chloride 0.9% [Normal Saline] 230 ml IV Q24H 01/16/20 21:00 Aspirin [Halfprin] 81 mg PO BEDTIME Patient's Own Medication [Ptom] 0 each PO BEDTIME 01/17/20 06:25 PROCALCITONIN [REF] DAILY 01/18/20 05:11 BASIC METABOLIC PANEL,BMP [CHEM] AM CBC WITH AUTO DIFF [HEME] AM D-DIMER QUANTITATIVE [COAG] AM FERRITIN [CHEM] AM HEPATIC FUNCTION PANEL,HFP [CHEM] AM 01/18/20 15:44 PROCALCITONIN [REF] DAILY 01/19/20 05:11 BASIC METABOLIC PANEL,BMP [CHEM] AM CBC WITH AUTO DIFF [HEME] AM D-DIMER QUANTITATIVE [COAG] AM FERRITIN [CHEM] AM HEPATIC FUNCTION PANEL,HFP [CHEM] AM 01/19/20 15:44 PROCALCITONIN [REF] DAILY 01/20/20 05:11 BASIC METABOLIC PANEL,BMP [CHEM] AM CBC WITH AUTO DIFF [HEME] AM D-DIMER QUANTITATIVE [COAG] AM FERRITIN [CHEM] AM HEPATIC FUNCTION PANEL,HFP [CHEM] AM - Plan Plan:: presented with shortness of breath, cough, fever. Noted to have hypoxemia in the clinic. Acute hypoxemic respiratory failure secondary to Covid 19 pneumonia Supplement oxygen as needed Covid 19 pneumonia Known exposure symptoms started around 10 january Positive covid 19 screen on 01/13 pulmonary symptoms of cough, sob associated with hypoxemia 84% on RA 01/14 in clinic LFT: OK Renal fx: gfr>30 on admission treat with Remdesivir 01/14- follow renal fx. Dexamethasone 01/14- Plasma 01/15 and 01/16 evaluate for concurrent bacterial infections pro-calcitonin levels: low hold Abx Ddimer is high - DVT prophylaxis with therapeutic dose Apixaban Diabetes Hold metformin Continue glipizide Follow blood sugars Use supplemental insulin and hypoglycemia treatment as needed Obstructive sleep apnea Use CPAP at night Coronary artery disease Continue aspirin, metoprolol, Hold statin while on remdesivir Atrial fibrillation Rate control with metoprolol Continue anticoagulation with apixaban
[2020-01-17] MEDS: Sodium Chloride 0.9% 10 ML Syringe IV SCH (17:29)
[2020-01-17] MEDS: Pantoprazole 40 MG Tab.CR PO SCH (22:06)
[2020-01-17] MEDS: Gabapentin 300 MG Cap PO SCH (22:06)
[2020-01-17] MEDS: Aspirin 81 MG Tab.EC PO SCH (22:06)
[2020-01-17] MEDS: FENOFIBRATE 54 MG PO SCH (22:09)
[2020-01-18] MEDS: Metoprolol Tartrate 25 MG Tab PO SCH ×2 (08:51→21:15)
[2020-01-18] MEDS: Loratadine 10 MG Tab PO SCH (08:51)
[2020-01-18] MEDS: Tamsulosin 0.4 MG Cap.ER PO SCH (08:51)
[2020-01-18] MEDS: Allopurinol 100 MG Tab PO SCH (08:51)
[2020-01-18] MEDS: Apixaban 5 MG Tab PO SCH (08:52)
[2020-01-18] MEDS: rOPINIRole 2 MG Tab PO SCH ×3 (08:52→21:15)
[2020-01-18] MEDS: Citalopram 20 MG Tab PO SCH (08:52)
[2020-01-18] MEDS: Multivitamins, Therapeutic with Minerals Tab PO SCH (08:52)
[2020-01-18] MEDS: Insulin Lispro 100 Units/ML 3 ML Vial SUBCUT SCH ×4 (08:54→21:26)
[2020-01-18] MEDS: Heparin Sodium/0.45% NaCl 25,000 UNITS/500 ML BAG IV SCH (12:26)
--- NOTE | 2020-01-18 14:22 | PCM.PN ---
- General Info Date of Service: 01/18/20 Admission Dx/Problem (Free Text): Admission Diagnosis/Problem Admission Diagnosis/Problem Shortness of breath Functional Status: Reports: Pain Controlled - Review of Systems General: Denies: Fever Pulmonary: Reports: Shortness of Breath, Pleuritic Chest Pain Cardiovascular: Denies: Chest Pain Gastrointestinal: Denies: Abdominal Pain Genitourinary: Denies: Dysuria Psychiatric: Denies: Confusion - Patient Data Vitals - Most Recent: Last Vital Signs Temp 99.2 F 01/18/20 12:00 Pulse 93 01/18/20 12:00 Resp 22 H 01/18/20 12:00 BP 125/61 01/18/20 12:00 Pulse Ox 93 L 01/18/20 12:00 Weight - Most Recent: 240 lb I&O - Last 24 Hours: Intake & Output 01/17/20 01/18/20 01/18/20 22:59 06:59 14:59 Intake Total 1420 200 240 Output Total 1050 100 Balance 370 100 240 Lab Results Last 24 Hours: Laboratory Results - last 24 hr 01/17/20 01/17/20 01/17/20 Range/Units 06:25 17:46 21:59 WBC (5.0-10.0) 10^3/uL RBC (4.6-6.2) 10^6/uL Hgb (14.0-18.0) g/dL Hct (40.0-54.0) % MCV (80-100) fL MCH (27.0-34.0) pg MCHC (33.0-35.0) g/dL Plt Count (150-450) 10^3/uL Neut % (Auto) (42.2-75.2) % Lymph % (Auto) (20.5-50.1) % [place] % (Auto) (2-8) % Eos % (Auto) (1.0-3.0) % Baso % (Auto) (0.0-1.0) % Add Manual Diff Neutrophils % (Manual) (42-75) % Lymphocytes % (Manual) (20-50) % Atypical Lymphs % % Monocytes % (Manual) (2-8) % APTT (22.0-34.0) SEC D-Dimer, Quantitative (0-400) ng/mL Sodium (136-145) mmol/L Potassium (3.5-5.1) mmol/L Chloride (98-107) mmol/L Carbon Dioxide (21-32) mmol/L Anion Gap (7-13) mEq/L BUN (7-18) mg/dL Creatinine (0.70-1.30) mg/dL Est Cr Clr Drug Dosing mL/min Estimated GFR (MDRD) Glucose (74-99) mg/dL POC Glucose 119 H 165 H (83-110) mg/dl Calcium (8.5-10.1) mg/dL Ferritin (26-388) mg/mL Total Bilirubin (0.2-1.0) mg/dL Direct Bilirubin (0.0-0.2) mg/dL Indirect Bilirubin AST (15-37) U/L ALT (16-63) U/L Alkaline Phosphatase (46-116) U/L Total Protein (6.4-8.2) g/dL Albumin (3.4-5.0) g/dL Globulin Albumin/Globulin Ratio Procalcitonin 0.17 H (<0.10) ng/mL 01/18/20 01/18/20 01/18/20 Range/Units 06:37 06:37 06:37 WBC 7.1 (5.0-10.0) 10^3/uL RBC 3.89 L (4.6-6.2) 10^6/uL Hgb 11.9 L (14.0-18.0) g/dL Hct 36.0 L (40.0-54.0) % MCV 92.5 (80-100) fL MCH 30.6 (27.0-34.0) pg MCHC 33.1 (33.0-35.0) g/dL Plt Count 210 (150-450) 10^3/uL Neut % (Auto) 82.4 H (42.2-75.2) % Lymph % (Auto) 12.6 L (20.5-50.1) % [place] % (Auto) 4.8 (2-8) % Eos % (Auto) 0.1 L (1.0-3.0) % Baso % (Auto) 0.1 (0.0-1.0) % Add Manual Diff Yes Neutrophils % (Manual) 78 H (42-75) % Lymphocytes % (Manual) 14 L (20-50) % Atypical Lymphs % 1 % Monocytes % (Manual) 7 (2-8) % APTT (22.0-34.0) SEC D-Dimer, Quantitative 2110 H (0-400) ng/mL Sodium 134 L (136-145) mmol/L Potassium 4.0 (3.5-5.1) mmol/L Chloride 98 (98-107) mmol/L Carbon Dioxide 28 (21-32) mmol/L Anion Gap 12.0 (7-13) mEq/L BUN 21 H (7-18) mg/dL Creatinine 1.35 H (0.70-1.30) mg/dL Est Cr Clr Drug Dosing 46.48 mL/min Estimated GFR (MDRD) 51 Glucose 108 H (74-99) mg/dL POC Glucose (83-110) mg/dl Calcium 8.5 (8.5-10.1) mg/dL Ferritin (26-388) mg/mL Total Bilirubin 0.8 (0.2-1.0) mg/dL Direct Bilirubin 0.3 H (0.0-0.2) mg/dL Indirect Bilirubin 0.5 AST 68 H (15-37) U/L ALT 35 (16-63) U/L Alkaline Phosphatase 61 (46-116) U/L Total Protein 6.7 (6.4-8.2) g/dL Albumin 2.4 L (3.4-5.0) g/dL Globulin 4.3 Albumin/Globulin Ratio 0.56 Procalcitonin (<0.10) ng/mL 01/18/20 01/18/20 01/18/20 Range/Units 06:37 07:50 11:55 WBC (5.0-10.0) 10^3/uL RBC (4.6-6.2) 10^6/uL Hgb (14.0-18.0) g/dL Hct (40.0-54.0) % MCV (80-100) fL MCH (27.0-34.0) pg MCHC (33.0-35.0) g/dL Plt Count (150-450) 10^3/uL Neut % (Auto) (42.2-75.2) % Lymph % (Auto) (20.5-50.1) % [place] % (Auto) (2-8) % Eos % (Auto) (1.0-3.0) % Baso % (Auto) (0.0-1.0) % Add Manual Diff Neutrophils % (Manual) (42-75) % Lymphocytes % (Manual) (20-50) % Atypical Lymphs % % Monocytes % (Manual) (2-8) % APTT 31.9 (22.0-34.0) SEC D-Dimer, Quantitative (0-400) ng/mL Sodium (136-145) mmol/L Potassium (3.5-5.1) mmol/L Chloride (98-107) mmol/L Carbon Dioxide (21-32) mmol/L Anion Gap (7-13) mEq/L BUN (7-18) mg/dL Creatinine (0.70-1.30) mg/dL Est Cr Clr Drug Dosing mL/min Estimated GFR (MDRD) Glucose (74-99) mg/dL POC Glucose 109 (83-110) mg/dl Calcium (8.5-10.1) mg/dL Ferritin 527 H (26-388) mg/mL Total Bilirubin (0.2-1.0) mg/dL Direct Bilirubin (0.0-0.2) mg/dL Indirect Bilirubin AST (15-37) U/L ALT (16-63) U/L Alkaline Phosphatase (46-116) U/L Total Protein (6.4-8.2) g/dL Albumin (3.4-5.0) g/dL Globulin Albumin/Globulin Ratio Procalcitonin (<0.10) ng/mL 01/18/20 Range/Units 12:24 WBC (5.0-10.0) 10^3/uL RBC (4.6-6.2) 10^6/uL Hgb (14.0-18.0) g/dL Hct (40.0-54.0) % MCV (80-100) fL MCH (27.0-34.0) pg MCHC (33.0-35.0) g/dL Plt Count (150-450) 10^3/uL Neut % (Auto) (42.2-75.2) % Lymph % (Auto) (20.5-50.1) % [place] % (Auto) (2-8) % Eos % (Auto) (1.0-3.0) % Baso % (Auto) (0.0-1.0) % Add Manual Diff Neutrophils % (Manual) (42-75) % Lymphocytes % (Manual) (20-50) % Atypical Lymphs % % Monocytes % (Manual) (2-8) % APTT (22.0-34.0) SEC D-Dimer, Quantitative (0-400) ng/mL Sodium (136-145) mmol/L Potassium (3.5-5.1) mmol/L Chloride (98-107) mmol/L Carbon Dioxide (21-32) mmol/L Anion Gap (7-13) mEq/L BUN (7-18) mg/dL Creatinine (0.70-1.30) mg/dL Est Cr Clr Drug Dosing mL/min Estimated GFR (MDRD) Glucose (74-99) mg/dL POC Glucose 174 H (83-110) mg/dl Calcium (8.5-10.1) mg/dL Ferritin (26-388) mg/mL Total Bilirubin (0.2-1.0) mg/dL Direct Bilirubin (0.0-0.2) mg/dL Indirect Bilirubin AST (15-37) U/L ALT (16-63) U/L Alkaline Phosphatase (46-116) U/L Total Protein (6.4-8.2) g/dL Albumin (3.4-5.0) g/dL Globulin Albumin/Globulin Ratio Procalcitonin (<0.10) ng/mL [place] Results Last 24 Hours: Microbiology 01/17/20 12:05 Gram Stain - Final Sputum - Expectorated 01/15/20 14:30 Aerobic Blood Culture - Preliminary Blood - Venous - Iv Start NO GROWTH AFTER 2 DAYS Anaerobic Blood Culture - Final Med Orders - Current: Current Medications Acetaminophen (Tylenol) 650 mg PO Q4H PRN PRN Reason: Pain (Mild 1-3)/fever Last Admin: 01/16/20 23:49 Dose: 650 mg Documented by: Allopurinol (Zyloprim) 100 mg PO DAILY [facility] Last Admin: 01/18/20 08:51 Dose: 100 mg Documented by: Aspirin (Halfprin) 81 mg PO BEDTIME [facility] Last Admin: 01/17/20 22:06 Dose: 81 mg Documented by: Citalopram Hydrobromide (Celexa) 10 mg PO DAILY [facility] Last Admin: 01/18/20 08:52 Dose: 10 mg Documented by: Dextrose/Water (Dextrose 50% In Water) 25 ml IVPUSH Q1H PRN PRN Reason: blood sugar <70 Dextrose/Water (Dextrose 50% In Water) 50 ml IV ASDIRECTED PRN PRN Reason: Hypoglycemia Gabapentin (Neurontin) 300 mg PO BEDTIME [facility] Last Admin: 01/17/20 22:06 Dose: 300 mg Documented by: Glucagon (Glucagen) 1 mg IM ASDIRECTED PRN PRN Reason: Hypoglycemia Remdesivir 100 mg/ Sodium (Chloride) 230 mls @ 230 mls/hr IV Q24H [facility] Stop: 01/19/20 16:59 Last Admin: 01/17/20 16:15 Dose: 230 mls/hr Documented by: Heparin Sodium/Sodium Chloride (Heparin 25,000 Units In 1/2 Ns 500 Ml) 25,000 units in 500 mls @ 19.595 mls/hr IV TITRATE [facility]; Protocol Last Admin: 01/18/20 12:26 Dose: 9 units/kg/hr, 19.595 mls/hr Documented by: Insulin Human Lispro (Humalog) 0 unit SUBCUT WITHMEALSANDBED [facility]; Protocol Last Admin: 01/18/20 12:25 Dose: 1 unit Documented by: Loratadine (Claritin) 10 mg PO DAILY [facility] Last Admin: 01/18/20 08:51 Dose: 10 mg Documented by: Metoprolol Tartrate (Lopressor) 12.5 mg PO BID [facility] Last Admin: 01/18/20 08:51 Dose: 12.5 mg Documented by: Multivitamins/Minerals (Vitamins And Minerals) 1 tab PO DAILY [facility] Last Admin: 01/18/20 08:52 Dose: 1 tab Documented by: Ondansetron HCl (Zofran Odt) 4 mg PO Q6H PRN PRN Reason: nausea, able to take PO Ondansetron HCl (Zofran) 4 mg IVPUSH Q6H PRN PRN Reason: Nausea/Vomiting Pantoprazole Sodium (Protonix) 40 mg PO BEDTIME [facility] Last Admin: 01/17/20 22:06 Dose: 40 mg Documented by: Fenofibrate 54 Mg (Tab *Own Med*) 0 each PO BEDTIME [facility] Last Admin: 01/17/20 22:09 Dose: 1 each Documented by: Ropinirole HCl (Requip) 2 mg PO TID [facility] Last Admin: 01/18/20 14:06 Dose: 2 mg Documented by: Sodium Chloride (Saline Flush) 10 ml FLUSH ASDIRECTED PRN PRN Reason: Keep Vein Open Last Admin: 01/17/20 05:10 Dose: 10 ml Documented by: Sodium Chloride (Saline Flush) 30 ml IV DAILY@1700 [facility] Stop: 01/19/20 17:01 Last Admin: 01/17/20 17:29 Dose: 30 ml Documented by: Tamsulosin HCl (Flomax) 0.4 mg PO DAILY [facility] Last Admin: 01/18/20 08:51 Dose: 0.4 mg Documented by: Zolpidem Tartrate (Ambien) 5 mg PO BEDTIME PRN PRN Reason: Sleep Discontinued Medications Apixaban (Eliquis) 5 mg PO BID [facility] Last Admin: 01/18/20 08:52 Dose: 5 mg Documented by: Glipizide (Glucotrol) 5 mg PO BID [facility] Last Admin: 01/15/20 21:21 Dose: Not Given Documented by: Heparin Sodium (Porcine) (Heparin Sodium) 5,000 units SUBCUT Q8HR [facility] Last Admin: 01/15/20 17:38 Dose: Not Given Documented by: Remdesivir 200 mg/ Sodium (Chloride) 210 mls @ 210 mls/hr IV ONETIME ONE Stop: 01/15/20 16:59 Last Admin: 01/15/20 16:23 Dose: 210 mls/hr Documented by: - Exam Quality Assessment: Supplemental Oxygen General: Alert, Oriented Neck: Supple Lungs: Normal Respiratory Effort, Rhonchi Cardiovascular: Regular Rate, Regular Rhythm GI/Abdominal Exam: Normal Bowel Sounds, Soft, Non-Tender Extremities: No Pedal Edema Neurological: No New Focal Deficit Psy/Mental Status: Alert, Normal Affect, Normal Mood Sepsis Event Note - Evaluation Sepsis Screening Result: No Definite Risk - Focused Exam Vital Signs: Vital Signs Temp Pulse Pulse Resp BP BP BP 01/18/20 12:00 99.2 F 93 22 H 125/61 01/18/20 08:51 91 130/84 01/18/20 08:00 98.8 F 91 22 H 130/84 01/18/20 03:25 98.1 F 95 20 100/58 L Pulse Ox Pulse Ox 01/18/20 12:00 93 L 01/18/20 08:51 01/18/20 08:00 91 L 91 L 01/18/20 03:25 91 L - Problem List & Annotations (1) Pneumonia due to COVID-19 virus SNOMED Code(s): 399397718166614703 Code(s): U07.1 - COVID-19; J12.89 - OTHER VIRAL PNEUMONIA Status: Acute Current Visit: Yes (2) Acute hypoxemic respiratory failure SNOMED Code(s): 781197670 Code(s): J96.01 - ACUTE RESPIRATORY FAILURE WITH HYPOXIA Status: Acute Cu rrent Visit: Yes (3) Afib SNOMED Code(s): 40212006 Code(s): I48.91 - UNSPECIFIED ATRIAL FIBRILLATION Status: Acute Current Visit: Yes (4) Diabetes SNOMED Code(s): 74895451 Code(s): E11.9 - TYPE 2 DIABETES MELLITUS WITHOUT COMPLICATIONS Status: Acute Current Visit: Yes (5) RODO on CPAP SNOMED Code(s): 68440489 Code(s): G47.33 - OBSTRUCTIVE SLEEP APNEA (ADULT) (PEDIATRIC); Z99.89 - DEPENDENCE ON OTHER ENABLING MACHINES AND DEVICES Status: Acute Current Visit: Yes - Problem List Review Problem List Initiated/Reviewed/Updated: Yes - My Orders Last 24 Hours: My Active Orders 01/17/20 21:00 Pantoprazole [ProTONIX] 40 mg PO BEDTIME 01/18/20 06:37 PROCALCITONIN [REF] DAILY 01/18/20 11:30 Heparin Sodium/0.45% NaCl [Heparin 25,000 Units in 1/2 NS 500 ML] 25,000 units in 500 ml IV TITRATE 01/18/20 18:30 PTT,PARTIAL THROMBOPLSTIN TIME [COAG] Routine 01/18/20 23:30 PTT,PARTIAL THROMBOPLSTIN TIME [COAG] Q6H 01/19/20 05:11 BASIC METABOLIC PANEL,BMP [CHEM] AM CBC WITH AUTO DIFF [HEME] AM D-DIMER QUANTITATIVE [COAG] AM FERRITIN [CHEM] AM HEPATIC FUNCTION PANEL,HFP [CHEM] AM 01/19/20 05:30 PTT,PARTIAL THROMBOPLSTIN TIME [COAG] Q6H 01/19/20 11:30 PTT,PARTIAL THROMBOPLSTIN TIME [COAG] Q6H 01/19/20 15:44 PROCALCITONIN [REF] DAILY 01/19/20 17:30 PTT,PARTIAL THROMBOPLSTIN TIME [COAG] Q6H 01/19/20 23:30 PTT,PARTIAL THROMBOPLSTIN TIME [COAG] Q6H 01/20/20 05:11 BASIC METABOLIC PANEL,BMP [CHEM] AM CBC WITH AUTO DIFF [HEME] AM D-DIMER QUANTITATIVE [COAG] AM FERRITIN [CHEM] AM HEPATIC FUNCTION PANEL,HFP [CHEM] AM - Plan Plan:: presented with shortness of breath, cough, fever. Noted to have hypoxemia in the clinic. Acute hypoxemic respiratory failure secondary to Covid 19 pneumonia Supplement oxygen as needed Covid 19 pneumonia Known exposure symptoms started around 10 january Positive covid 19 screen on 01/13 pulmonary symptoms of cough, sob associated with hypoxemia 84% on RA 01/14 in clinic LFT: OK Renal fx: gfr>30 on admission treat with Remdesivir 01/14- follow renal fx. Dexamethasone 01/14- Plasma 01/15 and 01/16 evaluate for concurrent bacterial infections pro-calcitonin levels: low hold Abx Ddimer is high and increasing - DVT prophylaxis: stop Apixaban - start wght based heparin Diabetes Hold metformin Continue glipizide Follow blood sugars Use supplemental insulin and hypoglycemia treatment as needed Obstructive sleep apnea Use CPAP at night Coronary artery disease Continue aspirin, metoprolol, Hold statin while on remdesivir Atrial fibrillation Rate control with metoprolol Continue anticoagulation
[2020-01-18] MEDS: Sodium Chloride 0.9% 10 ML Syringe IV SCH (18:08)
[2020-01-18] MEDS ORDERED: Heparin Sodium 5,000 Units/ML Vial IVPUSH ONE (19:20)
[2020-01-18] MEDS: Aspirin 81 MG Tab.EC PO SCH (21:15)
[2020-01-18] MEDS: Gabapentin 300 MG Cap PO SCH (21:15)
[2020-01-18] MEDS: Pantoprazole 40 MG Tab.CR PO SCH (21:15)
[2020-01-18] MEDS: FENOFIBRATE 54 MG PO SCH (21:18)
[2020-01-19 07:10] LABS: ANION GAP 9.8 mEq/L (7-13)
[2020-01-19] MEDS: Insulin Lispro 100 Units/ML 3 ML Vial SUBCUT SCH ×4 (08:52→20:31)
[2020-01-19] MEDS: rOPINIRole 2 MG Tab PO SCH ×3 (09:14→20:28)
[2020-01-19] MEDS: Citalopram 20 MG Tab PO SCH (09:14)
[2020-01-19] MEDS: Metoprolol Tartrate 25 MG Tab PO SCH ×2 (09:15→20:28)
[2020-01-19] MEDS: Tamsulosin 0.4 MG Cap.ER PO SCH (09:17)
[2020-01-19] MEDS: Loratadine 10 MG Tab PO SCH (09:17)
[2020-01-19] MEDS: Multivitamins, Therapeutic with Minerals Tab PO SCH (09:17)
[2020-01-19] MEDS: Allopurinol 100 MG Tab PO SCH (09:17)
--- NOTE | 2020-01-19 11:36 | PCM.PN ---
- General Info Date of Service: 01/19/20 Admission Dx/Problem (Free Text): Admission Diagnosis/Problem Admission Diagnosis/Problem Shortness of breath Subjective Update: feeling still very sob with minimal activity in room eg. ambulating 20 feet to BR no associated chest pain no fever last night. Occasional cough. minimal sputum. Has remained on oxygen. Functional Status: Reports: Tolerating Diet - Review of Systems General: Denies: Fever Pulmonary: Reports: Shortness of Breath Cardiovascular: Denies: Chest Pain, Edema Gastrointestinal: Denies: Abdominal Pain Neurological: Denies: Confusion - Patient Data Vitals - Most Recent: Last Vital Signs Temp 98.6 F 01/19/20 05:00 Pulse 92 01/19/20 09:15 Resp 20 01/19/20 05:00 BP 151/65 H 01/19/20 09:15 Pulse Ox 93 L 01/19/20 08:00 Weight - Most Recent: 240 lb I&O - Last 24 Hours: Intake & Output 01/18/20 01/19/20 01/19/20 22:59 06:59 14:59 Intake Total 570 1066 Output Total 100 650 Balance 470 416 Lab Results Last 24 Hours: Laboratory Results - last 24 hr 01/18/20 01/18/20 01/18/20 Range/Units 06:37 11:55 12:24 WBC (5.0-10.0) 10^3/uL RBC (4.6-6.2) 10^6/uL Hgb (14.0-18.0) g/dL Hct (40.0-54.0) % MCV (80-100) fL MCH (27.0-34.0) pg MCHC (33.0-35.0) g/dL Plt Count (150-450) 10^3/uL Neut % (Auto) (42.2-75.2) % Lymph % (Auto) (20.5-50.1) % [place] % (Auto) (2-8) % Eos % (Auto) (1.0-3.0) % Baso % (Auto) (0.0-1.0) % APTT 31.9 (22.0-34.0) SEC D-Dimer, Quantitative (0-400) ng/mL Sodium (136-145) mmol/L Potassium (3.5-5.1) mmol/L Chloride (98-107) mmol/L Carbon Dioxide (21-32) mmol/L Anion Gap (7-13) mEq/L BUN (7-18) mg/dL Creatinine (0.70-1.30) mg/dL Est Cr Clr Drug Dosing mL/min Estimated GFR (MDRD) Glucose (74-99) mg/dL POC Glucose 174 H (83-110) mg/dl Calcium (8.5-10.1) mg/dL Ferritin (26-388) mg/mL Total Bilirubin (0.2-1.0) mg/dL Direct Bilirubin (0.0-0.2) mg/dL Indirect Bilirubin AST (15-37) U/L ALT (16-63) U/L Alkaline Phosphatase (46-116) U/L Total Protein (6.4-8.2) g/dL Albumin (3.4-5.0) g/dL Globulin Albumin/Globulin Ratio Procalcitonin 0.25 H (<0.10) ng/mL 01/18/20 01/18/20 01/18/20 Range/Units 16:54 18:25 21:24 WBC (5.0-10.0) 10^3/uL RBC (4.6-6.2) 10^6/uL Hgb (14.0-18.0) g/dL Hct (40.0-54.0) % MCV (80-100) fL MCH (27.0-34.0) pg MCHC (33.0-35.0) g/dL Plt Count (150-450) 10^3/uL Neut % (Auto) (42.2-75.2) % Lymph % (Auto) (20.5-50.1) % [place] % (Auto) (2-8) % Eos % (Auto) (1.0-3.0) % Baso % (Auto) (0.0-1.0) % APTT 43.2 H (22.0-34.0) SEC D-Dimer, Quantitative (0-400) ng/mL Sodium (136-145) mmol/L Potassium (3.5-5.1) mmol/L Chloride (98-107) mmol/L Carbon Dioxide (21-32) mmol/L Anion Gap (7-13) mEq/L BUN (7-18) mg/dL Creatinine (0.70-1.30) mg/dL Est Cr Clr Drug Dosing mL/min Estimated GFR (MDRD) Glucose (74-99) mg/dL POC Glucose 124 H 191 H (83-110) mg/dl Calcium (8.5-10.1) mg/dL Ferritin (26-388) mg/mL Total Bilirubin (0.2-1.0) mg/dL Direct Bilirubin (0.0-0.2) mg/dL Indirect Bilirubin AST (15-37) U/L ALT (16-63) U/L Alkaline Phosphatase (46-116) U/L Total Protein (6.4-8.2) g/dL Albumin (3.4-5.0) g/dL Globulin Albumin/Globulin Ratio Procalcitonin (<0.10) ng/mL 01/19/20 01/19/20 01/19/20 Range/Units 00:45 06:15 06:15 WBC 7.0 (5.0-10.0) 10^3/uL RBC 3.58 L (4.6-6.2) 10^6/uL Hgb 11.0 L (14.0-18.0) g/dL Hct 33.2 L (40.0-54.0) % MCV 92.7 (80-100) fL MCH 30.7 (27.0-34.0) pg MCHC 33.1 (33.0-35.0) g/dL Plt Count 216 (150-450) 10^3/uL Neut % (Auto) 85.7 H (42.2-75.2) % Lymph % (Auto) 9.7 L (20.5-50.1) % [place] % (Auto) 3.9 (2-8) % Eos % (Auto) 0.4 L (1.0-3.0) % Baso % (Auto) 0.3 (0.0-1.0) % APTT 73.7 H (22.0-34.0) SEC D-Dimer, Quantitative 1770 H (0-400) ng/mL Sodium (136-145) mmol/L Potassium (3.5-5.1) mmol/L Chloride (98-107) mmol/L Carbon Dioxide (21-32) mmol/L Anion Gap (7-13) mEq/L BUN (7-18) mg/dL Creatinine (0.70-1.30) mg/dL Est Cr Clr Drug Dosing mL/min Estimated GFR (MDRD) Glucose (74-99) mg/dL POC Glucose (83-110) mg/dl Calcium (8.5-10.1) mg/dL Ferritin (26-388) mg/mL Total Bilirubin (0.2-1.0) mg/dL Direct Bilirubin (0.0-0.2) mg/dL Indirect Bilirubin AST (15-37) U/L ALT (16-63) U/L Alkaline Phosphatase (46-116) U/L Total Protein (6.4-8.2) g/dL Albumin (3.4-5.0) g/dL Globulin Albumin/Globulin Ratio Procalcitonin (<0.10) ng/mL 01/19/20 01/19/20 01/19/20 Range/Units 06:15 06:15 06:15 WBC (5.0-10.0) 10^3/uL RBC (4.6-6.2) 10^6/uL Hgb (14.0-18.0) g/dL Hct (40.0-54.0) % MCV (80-100) fL MCH (27.0-34.0) pg MCHC (33.0-35.0) g/dL Plt Count (150-450) 10^3/uL Neut % (Auto) (42.2-75.2) % Lymph % (Auto) (20.5-50.1) % [place] % (Auto) (2-8) % Eos % (Auto) (1.0-3.0) % Baso % (Auto) (0.0-1.0) % APTT 53.6 H (22.0-34.0) SEC D-Dimer, Quantitative (0-400) ng/mL Sodium 134 L (136-145) mmol/L Potassium 3.8 (3.5-5.1) mmol/L Chloride 99 (98-107) mmol/L Carbon Dioxide 29 (21-32) mmol/L Anion Gap 9.8 (7-13) mEq/L BUN 18 (7-18) mg/dL Creatinine 1.23 (0.70-1.30) mg/dL Est Cr Clr Drug Dosing 51.02 mL/min Estimated GFR (MDRD) 57 Glucose 111 H (74-99) mg/dL POC Glucose (83-110) mg/dl Calcium 8.2 L (8.5-10.1) mg/dL Ferritin 455 H (26-388) mg/mL Total Bilirubin 0.7 (0.2-1.0) mg/dL Direct Bilirubin 0.3 H (0.0-0.2) mg/dL Indirect Bilirubin 0.4 AST 74 H (15-37) U/L ALT 44 (16-63) U/L Alkaline Phosphatase 63 (46-116) U/L Total Protein 6.0 L (6.4-8.2) g/dL Albumin 2.0 L (3.4-5.0) g/dL Globulin 4.0 Albumin/Globulin Ratio 0.50 Procalcitonin (<0.10) ng/mL 01/19/20 Range/Units 08:04 WBC (5.0-10.0) 10^3/uL RBC (4.6-6.2) 10^6/uL Hgb (14.0-18.0) g/dL Hct (40.0-54.0) % MCV (80-100) fL MCH (27.0-34.0) pg MCHC (33.0-35.0) g/dL Plt Count (150-450) 10^3/uL Neut % (Auto) (42.2-75.2) % Lymph % (Auto) (20.5-50.1) % [place] % (Auto) (2-8) % Eos % (Auto) (1.0-3.0) % Baso % (Auto) (0.0-1.0) % APTT (22.0-34.0) SEC D-Dimer, Quantitative (0-400) ng/mL Sodium (136-145) mmol/L Potassium (3.5-5.1) mmol/L Chloride (98-107) mmol/L Carbon Dioxide (21-32) mmol/L Anion Gap (7-13) mEq/L BUN (7-18) mg/dL Creatinine (0.70-1.30) mg/dL Est Cr Clr Drug Dosing mL/min Estimated GFR (MDRD) Glucose (74-99) mg/dL POC Glucose 112 H (83-110) mg/dl Calcium (8.5-10.1) mg/dL Ferritin (26-388) mg/mL Total Bilirubin (0.2-1.0) mg/dL Direct Bilirubin (0.0-0.2) mg/dL Indirect Bilirubin AST (15-37) U/L ALT (16-63) U/L Alkaline Phosphatase (46-116) U/L Total Protein (6.4-8.2) g/dL Albumin (3.4-5.0) g/dL Globulin Albumin/Globulin Ratio Procalcitonin (<0.10) ng/mL [place] Results Last 24 Hours: Microbiology 01/17/20 12:05 Gram Stain - Final Sputum - Expectorated Sputum Culture - Preliminary NORMAL RESPIRATORY [facility] 2 DAYS 01/15/20 14:30 Aerobic Blood Culture - Preliminary Blood - Venous - Iv Start NO GROWTH AFTER 3 DAYS Anaerobic Blood Culture - Final Med Orders - Current: Current Medications Acetaminophen (Tylenol) 650 mg PO Q4H PRN PRN Reason: Pain (Mild 1-3)/fever Last Admin: 01/16/20 23:49 Dose: 650 mg Documented by: Allopurinol (Zyloprim) 100 mg PO DAILY [facility] Last Admin: 01/19/20 09:17 Dose: 100 mg Documented by: Aspirin (Halfprin) 81 mg PO BEDTIME [facility] Last Admin: 01/18/20 21:15 Dose: 81 mg Documented by: Citalopram Hydrobromide (Celexa) 10 mg PO DAILY [facility] Last Admin: 01/19/20 09:14 Dose: 10 mg Documented by: Dextrose/Water (Dextrose 50% In Water) 25 ml IVPUSH Q1H PRN PRN Reason: blood sugar <70 Dextrose/Water (Dextrose 50% In Water) 50 ml IV ASDIRECTED PRN PRN Reason: Hypoglycemia Gabapentin (Neurontin) 300 mg PO BEDTIME [facility] Last Admin: 01/18/20 21:15 Dose: 300 mg Documented by: Glucagon (Glucagen) 1 mg IM ASDIRECTED PRN PRN Reason: Hypoglycemia Remdesivir 100 mg/ Sodium (Chloride) 230 mls @ 230 mls/hr IV Q24H [facility] Stop: 01/19/20 16:59 Last Admin: 01/18/20 16:46 Dose: 230 mls/hr Documented by: Heparin Sodium/Sodium Chloride (Heparin 25,000 Units In 1/2 Ns 500 Ml) 25,000 units in 500 mls @ 19.595 mls/hr IV TITRATE [facility]; Protocol Last Titration: 01/19/20 01:42 Dose: 9 units/kg/hr, 19.595 mls/hr Documented by: Insulin Human Lispro (Humalog) 0 unit SUBCUT WITHMEALSANDBED [facility]; Protocol Last Admin: 01/19/20 08:52 Dose: Not Given Documented by: Loratadine (Claritin) 10 mg PO DAILY [facility] Last Admin: 01/19/20 09:17 Dose: 10 mg Documented by: Metoprolol Tartrate (Lopressor) 12.5 mg PO BID [facility] Last Admin: 01/19/20 09:15 Dose: 12.5 mg Documented by: Multivitamins/Minerals (Vitamins And Minerals) 1 tab PO DAILY [facility] Last Admin: 01/19/20 09:17 Dose: 1 tab Documented by: Ondansetron HCl (Zofran Odt) 4 mg PO Q6H PRN PRN Reason: nausea, able to take PO Ondansetron HCl (Zofran) 4 mg IVPUSH Q6H PRN PRN Reason: Nausea/Vomiting Pantoprazole Sodium (Protonix) 40 mg PO BEDTIME [facility] Last Admin: 01/18/20 21:15 Dose: 40 mg Documented by: Fenofibrate 54 Mg (Tab *Own Med*) 0 each PO BEDTIME [facility] Last Admin: 01/18/20 21:18 Dose: 1 each Documented by: Ropinirole HCl (Requip) 2 mg PO TID [facility] Last Admin: 01/19/20 09:14 Dose: 2 mg Documented by: Sodium Chloride (Saline Flush) 10 ml FLUSH ASDIRECTED PRN PRN Reason: Keep Vein Open Last Admin: 01/17/20 05:10 Dose: 10 ml Documented by: Sodium Chloride (Saline Flush) 30 ml IV DAILY@1700 [facility] Stop: 01/19/20 17:01 Last Admin: 01/18/20 18:08 Dose: 30 ml Documented by: Tamsulosin HCl (Flomax) 0.4 mg PO DAILY [facility] Last Admin: 01/19/20 09:17 Dose: 0.4 mg Documented by: Zolpidem Tartrate (Ambien) 5 mg PO BEDTIME PRN PRN Reason: Sleep Discontinued Medications Apixaban (Eliquis) 5 mg PO BID [facility] Last Admin: 01/18/20 08:52 Dose: 5 mg Documented by: Glipizide (Glucotrol) 5 mg PO BID [facility] Last Admin: 01/15/20 21:21 Dose: Not Given Documented by: Heparin Sodium (Porcine) (Heparin Sodium) 5,000 units SUBCUT Q8HR [facility] Last Admin: 01/15/20 17:38 Dose: Not Given Documented by: Heparin Sodium (Porcine) (Heparin Sodium) 1,000 units IVPUSH .BOLUS ONE Stop: 01/18/20 19:21 Last Admin: 01/18/20 19:39 Dose: 1,000 units Documented by: Remdesivir 200 mg/ Sodium (Chloride) 210 mls @ 210 mls/hr IV ONETIME ONE Stop: 01/15/20 16:59 Last Admin: 01/15/20 16:23 Dose: 210 mls/hr Documented by: - Exam Quality Assessment: Supplemental Oxygen General: Alert, Oriented Lungs: Clear to Auscultation, Normal Respiratory Effort. No: Wheezing Cardiovascular: Regular Rate, Regular Rhythm GI/Abdominal Exam: Normal Bowel Sounds, Soft, Non-Tender Extremities: No Pedal Edema Sepsis Event Note - Evaluation Sepsis Screening Result: No Definite Risk - Focused Exam Vital Signs: Vital Signs Temp Pulse Pulse Resp BP BP Pulse Ox 01/19/20 09:15 92 151/65 H 01/19/20 08:00 01/19/20 05:00 98.6 F 85 20 122/74 90 L 01/19/20 00:40 98 F 90 20 122/81 91 L Pulse Ox 01/19/20 09:15 01/19/20 08:00 93 L 01/19/20 05:00 01/19/20 00:40 - Problem List & Annotations (1) Pneumonia due to COVID-19 virus SNOMED Code(s): 894489752299663706 Code(s): U07.1 - COVID-19; J12.89 - OTHER VIRAL PNEUMONIA Status: Acute Current Visit: Yes (2) Acute hypoxemic respiratory failure SNOMED Code(s): 827570122 Code(s): J96.01 - ACUTE RESPIRATORY FAILURE WITH HYPOXIA Status: Acute Current Visit: Yes (3) Afib SNOMED Code(s): 36577350 Code(s): I48.91 - UNSPECIFIED ATRIAL FIBRILLATION Status: Acute Current Visit: Yes (4) Diabetes SNOMED Code(s): 09662075 Code(s): E11.9 - TYPE 2 DIABETES MELLITUS WITHOUT COMPLICATIONS Status: Acute Current Visit: Yes (5) RODO on CPAP SNOMED Code(s): 48600918 Code(s): G47.33 - OBSTRUCTIVE SLEEP APNEA (ADULT) (PEDIATRIC); Z99.89 - DEPENDENCE ON OTHER ENABLING MACHINES AND DEVICES Status: Acute Current Visit: Yes - Problem List Review Problem List Initiated/Reviewed/Updated: Yes - My Orders Last 24 Hours: My Active Orders 01/18/20 11:30 Heparin Sodium/0.45% NaCl [Heparin 25,000 Units in 1/2 NS 500 ML] 25,000 units in 500 ml IV TITRATE 01/19/20 06:15 PROCALCITONIN [REF] DAILY 01/19/20 11:30 PTT,PARTIAL THROMBOPLSTIN TIME [COAG] Q6H 01/19/20 17:30 PTT,PARTIAL THROMBOPLSTIN TIME [COAG] Q6H 01/19/20 23:30 PTT,PARTIAL THROMBOPLSTIN TIME [COAG] Q6H 01/20/20 05:11 BASIC METABOLIC PANEL,BMP [CHEM] AM CBC WITH AUTO DIFF [HEME] AM D-DIMER QUANTITATIVE [COAG] AM FERRITIN [CHEM] AM HEPATIC FUNCTION PANEL,HFP [CHEM] AM 01/20/20 06:00 PTT,PARTIAL THROMBOPLSTIN TIME [COAG] Routine - Plan Plan:: presented with shortness of breath, cough, fever. Noted to have hypoxemia in the clinic. Acute hypoxemic respiratory failure secondary to Covid 19 pneumonia Supplement oxygen as needed Covid 19 pneumonia Known exposure symptoms started around 10 january Positive covid 19 screen on 01/13 pulmonary symptoms of cough, sob associated with hypoxemia 84% on RA 01/14 in clinic LFT: OK Renal fx: gfr>30 on admission treat with Remdesivir 01/14- follow renal fx. Dexamethasone 01/14- Plasma 01/15 and 01/16 evaluate for concurrent bacterial infections pro-calcitonin levels: low hold Abx Ddimer is high and was increasing while on Apixaban - DVT prophylaxis: stop Apixaban - started wght based heparin Diabetes Hold metformin Continue glipizide Follow blood sugars Use supplemental insulin and hypoglycemia treatment as needed Obstructive sleep apnea Use CPAP at night Coronary artery disease Continue aspirin, metoprolol, Hold statin while on remdesivir Atrial fibrillation Rate control with metoprolol Continue anticoagulation
[2020-01-19] MEDS: Heparin Sodium/0.45% NaCl 25,000 UNITS/500 ML BAG IV SCH (12:24)
[2020-01-19] MEDS: Sodium Chloride 0.9% 10 ML Syringe IV SCH (18:27)
[2020-01-19] MEDS: Acetaminophen 325 MG Tab PO PRN (18:37)
[2020-01-19] MEDS: Aspirin 81 MG Tab.EC PO SCH (20:28)
[2020-01-19] MEDS: Gabapentin 300 MG Cap PO SCH (20:28)
[2020-01-19] MEDS: Pantoprazole 40 MG Tab.CR PO SCH (20:28)
[2020-01-19] MEDS: FENOFIBRATE 54 MG PO SCH (20:32)
[2020-01-20 07:24] LABS: ANION GAP 11.9 mEq/L (7-13)
[2020-01-20] MEDS: Insulin Lispro 100 Units/ML 3 ML Vial SUBCUT SCH ×4 (08:28→20:40)
[2020-01-20] MEDS: Loratadine 10 MG Tab PO SCH (10:44)
[2020-01-20] MEDS: Citalopram 20 MG Tab PO SCH (10:44)
[2020-01-20] MEDS: Metoprolol Tartrate 25 MG Tab PO SCH ×2 (10:45→20:52)
[2020-01-20] MEDS: Tamsulosin 0.4 MG Cap.ER PO SCH (10:45)
[2020-01-20] MEDS: Allopurinol 100 MG Tab PO SCH (10:46)
[2020-01-20] MEDS: rOPINIRole 2 MG Tab PO SCH ×3 (10:46→20:51)
[2020-01-20] MEDS: Multivitamins, Therapeutic with Minerals Tab PO SCH (10:47)
[2020-01-20] MEDS ORDERED: Heparin Sodium 5,000 Units/ML Vial IVPUSH ONE ×2 (11:22→20:00)
--- NOTE | 2020-01-20 14:42 | PCM.PN ---
- General Info Date of Service: 01/20/20 Admission Dx/Problem (Free Text): Admission Diagnosis/Problem Admission Diagnosis/Problem Shortness of breath Subjective Update: He is feeling still very sob with minimal activity in room , complain of chest tightness, gets short winded with ambulating 20 feet in room no associated chest pain, no fever last night. he has Occasional cough. minimal sputum. Has remained on oxygen. Functional Status: Reports: Pain Controlled, Tolerating Diet, Ambulating (( has dyspnea with minor exertion)), Urinating - Review of Systems General: Reports: Weakness, Malaise, Appetite (ok , not that good). Denies: Fever HEENT: Denies: Headaches, Sinus Congestion, Sore Throat, Visual Changes Pulmonary: Reports: Shortness of Breath, Cough, Sputum (occasional). Denies: Wheezing Cardiovascular: Reports: Dyspnea on Exertion. Denies: Chest Pain, Edema Gastrointestinal: Denies: Abdominal Pain, Difficulty Swallowing, Nausea, Vomiting Genitourinary: Denies: Dysuria, Frequency, Burning, Flank Pain Musculoskeletal: Denies: Neck Pain, Hand Pain, Leg Pain, Joint Swelling Skin: Denies: Cyanosis, Bruising, Rash Neurological: Denies: Confusion, Tingling, Tremors Psychiatric: Denies: Confusion, Anxiety - Patient Data Vitals - Most Recent: Last Vital Signs Temp 37.0 C 01/20/20 12:00 Pulse 97 01/20/20 12:00 Resp 20 01/20/20 12:00 BP 128/84 01/20/20 12:00 Pulse Ox 91 L 01/20/20 12:00 Weight - Most Recent: 108.862 kg I&O - Last 24 Hours: Intake & Output 01/19/20 01/20/20 01/20/20 22:59 06:59 14:59 Intake Total 900 779 360 Output Total 800 675 Balance 100 104 360 Lab Results Last 24 Hours: Laboratory Results - last 24 hr 01/19/20 01/19/20 01/19/20 Range/Units 06:15 17:22 20:20 WBC (5.0-10.0) 10^3/uL RBC (4.6-6.2) 10^6/uL Hgb (14.0-18.0) g/dL Hct (40.0-54.0) % MCV (80-100) fL MCH (27.0-34.0) pg MCHC (33.0-35.0) g/dL Plt Count (150-450) 10^3/uL Neut % (Auto) (42.2-75.2) % Lymph % (Auto) (20.5-50.1) % [place] % (Auto) (2-8) % Eos % (Auto) (1.0-3.0) % Baso % (Auto) (0.0-1.0) % APTT (22.0-34.0) SEC D-Dimer, Quantitative (0-400) ng/mL Sodium (136-145) mmol/L Potassium (3.5-5.1) mmol/L Chloride (98-107) mmol/L Carbon Dioxide (21-32) mmol/L Anion Gap (7-13) mEq/L BUN (7-18) mg/dL Creatinine (0.70-1.30) mg/dL Est Cr Clr Drug Dosing mL/min Estimated GFR (MDRD) Glucose (74-99) mg/dL POC Glucose 164 H 126 H (83-110) mg/dl Calcium (8.5-10.1) mg/dL Ferritin (26-388) mg/mL Total Bilirubin (0.2-1.0) mg/dL Direct Bilirubin (0.0-0.2) mg/dL Indirect Bilirubin AST (15-37) U/L ALT (16-63) U/L Alkaline Phosphatase (46-116) U/L Total Protein (6.4-8.2) g/dL Albumin (3.4-5.0) g/dL Globulin Albumin/Globulin Ratio Procalcitonin 0.35 H (<0.10) ng/mL 01/20/20 01/20/20 01/20/20 Range/Units 05:45 05:45 05:45 WBC 7.8 (5.0-10.0) 10^3/uL RBC 3.70 L (4.6-6.2) 10^6/uL Hgb 11.4 L (14.0-18.0) g/dL Hct 34.3 L (40.0-54.0) % MCV 92.7 (80-100) fL MCH 30.8 (27.0-34.0) pg MCHC 33.2 (33.0-35.0) g/dL Plt Count 256 (150-450) 10^3/uL Neut % (Auto) 86.9 H (42.2-75.2) % Lymph % (Auto) 7.9 L (20.5-50.1) % [place] % (Auto) 3.8 (2-8) % Eos % (Auto) 1.1 (1.0-3.0) % Baso % (Auto) 0.3 (0.0-1.0) % APTT (22.0-34.0) SEC D-Dimer, Quantitative 2650 H (0-400) ng/mL Sodium 133 L (136-145) mmol/L Potassium 3.9 (3.5-5.1) mmol/L Chloride 98 (98-107) mmol/L Carbon Dioxide 27 (21-32) mmol/L Anion Gap 11.9 (7-13) mEq/L BUN 19 H (7-18) mg/dL Creatinine 1.18 (0.70-1.30) mg/dL Est Cr Clr Drug Dosing 53.18 mL/min Estimated GFR (MDRD) 59 Glucose 101 H (74-99) mg/dL POC Glucose (83-110) mg/dl Calcium 8.5 (8.5-10.1) mg/dL Ferritin (26-388) mg/mL Total Bilirubin 0.8 (0.2-1.0) mg/dL Direct Bilirubin 0.3 H (0.0-0.2) mg/dL Indirect Bilirubin 0.5 AST 79 H (15-37) U/L ALT 52 (16-63) U/L Alkaline Phosphatase 70 (46-116) U/L Total Protein 6.4 (6.4-8.2) g/dL Albumin 2.0 L (3.4-5.0) g/dL Globulin 4.4 Albumin/Globulin Ratio 0.45 Procalcitonin (<0.10) ng/mL 01/20/20 01/20/20 01/20/20 Range/Units 05:45 05:45 08:16 WBC (5.0-10.0) 10^3/uL RBC (4.6-6.2) 10^6/uL Hgb (14.0-18.0) g/dL Hct (40.0-54.0) % MCV (80-100) fL MCH (27.0-34.0) pg MCHC (33.0-35.0) g/dL Plt Count (150-450) 10^3/uL Neut % (Auto) (42.2-75.2) % Lymph % (Auto) (20.5-50.1) % [place] % (Auto) (2-8) % Eos % (Auto) (1.0-3.0) % Baso % (Auto) (0.0-1.0) % APTT 47.2 H (22.0-34.0) SEC D-Dimer, Quantitative (0-400) ng/mL Sodium (136-145) mmol/L Potassium (3.5-5.1) mmol/L Chloride (98-107) mmol/L Carbon Dioxide (21-32) mmol/L Anion Gap (7-13) mEq/L BUN (7-18) mg/dL Creatinine (0.70-1.30) mg/dL Est Cr Clr Drug Dosing mL/min Estimated GFR (MDRD) Glucose (74-99) mg/dL POC Glucose 102 (83-110) mg/dl Calcium (8.5-10.1) mg/dL Ferritin 450 H (26-388) mg/mL Total Bilirubin (0.2-1.0) mg/dL Direct Bilirubin (0.0-0.2) mg/dL Indirect Bilirubin AST (15-37) U/L ALT (16-63) U/L Alkaline Phosphatase (46-116) U/L Total Protein (6.4-8.2) g/dL Albumin (3.4-5.0) g/dL Globulin Albumin/Globulin Ratio Procalcitonin (<0.10) ng/mL 01/20/20 Range/Units 12:04 WBC (5.0-10.0) 10^3/uL RBC (4.6-6.2) 10^6/uL Hgb (14.0-18.0) g/dL Hct (40.0-54.0) % MCV (80-100) fL MCH (27.0-34.0) pg MCHC (33.0-35.0) g/dL Plt Count (150-450) 10^3/uL Neut % (Auto) (42.2-75.2) % Lymph % (Auto) (20.5-50.1) % [place] % (Auto) (2-8) % Eos % (Auto) (1.0-3.0) % Baso % (Auto) (0.0-1.0) % APTT (22.0-34.0) SEC D-Dimer, Quantitative (0-400) ng/mL Sodium (136-145) mmol/L Potassium (3.5-5.1) mmol/L Chloride (98-107) mmol/L Carbon Dioxide (21-32) mmol/L Anion Gap (7-13) mEq/L BUN (7-18) mg/dL Creatinine (0.70-1.30) mg/dL Est Cr Clr Drug Dosing mL/min Estimated GFR (MDRD) Glucose (74-99) mg/dL POC Glucose 116 H (83-110) mg/dl Calcium (8.5-10.1) mg/dL Ferritin (26-388) mg/mL Total Bilirubin (0.2-1.0) mg/dL Direct Bilirubin (0.0-0.2) mg/dL Indirect Bilirubin AST (15-37) U/L ALT (16-63) U/L Alkaline Phosphatase (46-116) U/L Total Protein (6.4-8.2) g/dL Albumin (3.4-5.0) g/dL Globulin Albumin/Globulin Ratio Procalcitonin (<0.10) ng/mL [place] Results Last 24 Hours: Microbiology 01/17/20 12:05 Gram Stain - Final Sputum - Expectorated Sputum Culture - Final Normal [place] 01/15/20 14:30 Aerobic Blood Culture - Preliminary Blood - Venous - Iv Start NO GROWTH AFTER 4 DAYS Anaerobic Blood Culture - Final Med Orders - Current: Current Medications Acetaminophen (Tylenol) 650 mg PO Q4H PRN PRN Reason: Pain (Mild 1-3)/fever Last Admin: 01/19/20 18:37 Dose: 650 mg Documented by: Allopurinol (Zyloprim) 100 mg PO DAILY [facility] Last Admin: 01/20/20 10:46 Dose: 100 mg Documented by: Aspirin (Halfprin) 81 mg PO BEDTIME [facility] Last Admin: 01/19/20 20:28 Dose: 81 mg Documented by: Citalopram Hydrobromide (Celexa) 10 mg PO DAILY [facility] Last Admin: 01/20/20 10:44 Dose: 10 mg Documented by: Dextrose/Water (Dextrose 50% In Water) 25 ml IVPUSH Q1H PRN PRN Reason: blood sugar <70 Dextrose/Water (Dextrose 50% In Water) 50 ml IV ASDIRECTED PRN PRN Reason: Hypoglycemia Gabapentin (Neurontin) 300 mg PO BEDTIME [facility] Last Admin: 01/19/20 20:28 Dose: 300 mg Documented by: Glucagon (Glucagen) 1 mg IM ASDIRECTED PRN PRN Reason: Hypoglycemia Heparin Sodium/Sodium Chloride (Heparin 25,000 Units In 1/2 Ns 500 Ml) 25,000 units in 500 mls @ 19.595 mls/hr IV TITRATE [facility]; Protocol Last Titration: 01/20/20 12:20 Dose: 11 units/kg/hr, 23.95 mls/hr Documented by: Insulin Human Lispro (Humalog) 0 unit SUBCUT WITHMEALSANDBED [facility]; Protocol Last Admin: 01/20/20 12:06 Dose: Not Given Documented by: Loratadine (Claritin) 10 mg PO DAILY [facility] Last Admin: 01/20/20 10:44 Dose: 10 mg Documented by: Metoprolol Tartrate (Lopressor) 12.5 mg PO BID [facility] Last Admin: 01/20/20 10:45 Dose: 12.5 mg Documented by: Multivitamins/Minerals (Vitamins And Minerals) 1 tab PO DAILY [facility] Last Admin: 01/20/20 10:47 Dose: 1 tab Documented by: Ondansetron HCl (Zofran Odt) 4 mg PO Q6H PRN PRN Reason: nausea, able to take PO Ondansetron HCl (Zofran) 4 mg IVPUSH Q6H PRN PRN Reason: Nausea/Vomiting Pantoprazole Sodium (Protonix) 40 mg PO BEDTIME [facility] Last Admin: 01/19/20 20:28 Dose: 40 mg Documented by: Fenofibrate 54 Mg (Tab *Own Med*) 0 each PO BEDTIME [facility] Last Admin: 01/19/20 20:32 Dose: 1 each Documented by: Ropinirole HCl (Requip) 2 mg PO TID [facility] Last Admin: 01/20/20 13:33 Dose: 2 mg Documented by: Sodium Chloride (Saline Flush) 10 ml FLUSH ASDIRECTED PRN PRN Reason: Keep Vein Open Last Admin: 01/17/20 05:10 Dose: 10 ml Documented by: Tamsulosin HCl (Flomax) 0.4 mg PO DAILY [facility] Last Admin: 01/20/20 10:45 Dose: 0.4 mg Documented by: Zolpidem Tartrate (Ambien) 5 mg PO BEDTIME PRN PRN Reason: Sleep Discontinued Medications Apixaban (Eliquis) 5 mg PO BID [facility] Last Admin: 01/18/20 08:52 Dose: 5 mg Documented by: Glipizide (Glucotrol) 5 mg PO BID [facility] Last Admin: 01/15/20 21:21 Dose: Not Given Documented by: Heparin Sodium (Porcine) (Heparin Sodium) 5,000 units SUBCUT Q8HR [facility] Last Admin: 01/15/20 17:38 Dose: Not Given Documented by: Heparin Sodium (Porcine) (Heparin Sodium) 1,000 units IVPUSH .BOLUS ONE Stop: 01/18/20 19:21 Last Admin: 01/18/20 19:39 Dose: 1,000 units Documented by: Heparin Sodium (Porcine) (Heparin Sodium) 1,000 units IVPUSH .BOLUS ONE Stop: 01/20/20 11:23 Last Admin: 01/20/20 12:17 Dose: 1,000 units Documented by: Remdesivir 200 mg/ Sodium (Chloride) 210 mls @ 210 mls/hr IV ONETIME ONE Stop: 01/15/20 16:59 Last Admin: 01/15/20 16:23 Dose: 210 mls/hr Documented by: Remdesivir 100 mg/ Sodium (Chloride) 230 mls @ 230 mls/hr IV Q24H [facility] Stop: 01/19/20 16:59 Last Infusion: 01/19/20 17:30 Dose: Infused Documented by: Sodium Chloride (Saline Flush) 30 ml IV DAILY@1700 [facility] Stop: 01/19/20 17:01 Last Admin: 01/19/20 18:27 Dose: 30 ml Documented by: - Exam Quality Assessment: Supplemental Oxygen, DVT Prophylaxis. No: Urine Catheter General: Alert, Oriented, Cooperative, No Acute Distress HEENT: Pupils Equal, Pupils Reactive, EOMI, Mucous Membr. Moist/[place] Neck: Supple, No JVD, No Thyromegaly Lungs: Clear to Auscultation, Normal Respiratory Effort, Decreased Breath Sounds GI/Abdominal Exam: Normal Bowel Sounds, Soft, Non-Tender, No Distention (Male) Exam: Deferred Back Exam: Normal Inspection, Full Range of Motion Extremities: Normal Inspection, No Pedal Edema Skin: Warm, Dry, Intact Neurological: No New Focal Deficit Psy/Mental Status: Alert, Normal Affect, Normal Mood Sepsis Event Note - Evaluation Sepsis Screening Result: No Definite Risk - Focused Exam Vital Signs: Vital Signs Temp Pulse Pulse Resp BP BP Pulse Ox 01/20/20 12:00 37.0 C 97 20 128/84 91 L 01/20/20 10:45 90 135/77 01/20/20 08:00 36.6 C 90 20 135/77 94 L 01/20/20 04:00 36.6 C 92 20 109/72 91 L Pulse Ox 01/20/20 12:00 01/20/20 10:45 01/20/20 08:00 91 L 01/20/20 04:00 - Problem List Review Problem List Initiated/Reviewed/Updated: Yes - My Orders Last 24 Hours: My Active Orders 01/20/20 18:30 aPTT [PTT,PARTIAL THROMBOPLSTIN TIME] [COAG] Routine - Plan Plan:: This is a 79 Y/O Male presented with shortness of breath, cough, fever. Noted to have hypoxemia in the clinic. The Acute hypoxemic respiratory failure secondary to Covid 19 pneumonia and on suplement oxygen Impression and Plan: 1. Covid 19 pneumonia Known exposure symptoms started around 10 january Positive covid 19 screen on 01/13 pulmonary symptoms of cough, sob associated with hypoxemia 84% on RA 01/14 in clinic LFT: OK Renal fx: gfr>30 on admission treat with Remdesivir 01/14- follow renal fx. -Continuw Dexamethasone, started on 01/14- - Has received Plasma on 01/15 and 01/16 evaluate for concurrent bacterial infections - pro-calcitonin levels: low - not on Abx 2. Ddimer is high and was increasing while on Apixaban - DVT prophylaxis: stopped Apixaban - he is on weight based heparin 3. Diabetes : Hold metformin Continue glipizide Follow blood sugars Use supplemental insulin and hypoglycemia treatment as needed 4. Obstructive sleep apnea Use CPAP at night 5. Coronary artery disease Continue aspirin, metoprolol, Hold statin while on remdesivir 6. Atrial fibrillation Rate control with metoprolol Continue anticoagulation
[2020-01-20] MEDS: Heparin Sodium/0.45% NaCl 25,000 UNITS/500 ML BAG IV SCH (17:05)
[2020-01-20] MEDS: Acetaminophen 325 MG Tab PO PRN (18:04)
[2020-01-20] MEDS: Gabapentin 300 MG Cap PO SCH (20:51)
[2020-01-20] MEDS: Pantoprazole 40 MG Tab.CR PO SCH (20:51)
[2020-01-20] MEDS: Aspirin 81 MG Tab.EC PO SCH (20:51)
[2020-01-20] MEDS: FENOFIBRATE 54 MG PO SCH (20:53)
[2020-01-21] MEDS: Insulin Lispro 100 Units/ML 3 ML Vial SUBCUT SCH ×4 (09:08→21:13)
[2020-01-21] MEDS: Loratadine 10 MG Tab PO SCH (09:09)
[2020-01-21] MEDS: Multivitamins, Therapeutic with Minerals Tab PO SCH (09:09)
[2020-01-21] MEDS: Allopurinol 100 MG Tab PO SCH (09:10)
[2020-01-21] MEDS: Tamsulosin 0.4 MG Cap.ER PO SCH (09:10)
[2020-01-21] MEDS: Metoprolol Tartrate 25 MG Tab PO SCH ×2 (09:10→21:22)
[2020-01-21] MEDS: Citalopram 20 MG Tab PO SCH (09:10)
[2020-01-21] MEDS: rOPINIRole 2 MG Tab PO SCH ×3 (09:10→21:21)
[2020-01-21] MEDS: Acetaminophen 325 MG Tab PO PRN (09:11)
[2020-01-21] MEDS ORDERED: Heparin Sodium 5,000 Units/ML Vial IVPUSH ONE (10:33)
--- NOTE | 2020-01-21 14:18 | PCM.PN ---
- General Info Date of Service: 01/21/20 Admission Dx/Problem (Free Text): Admission Diagnosis/Problem Admission Diagnosis/Problem Shortness of breath Subjective Update: He is still having sob with minimal activity in room , complain of chest tightness, gets short winded with ambulating 20 feet in room no associated chest pain, no fever last night. he has Occasional cough. minimal sputum. Has remained on supplemental oxygen. Functional Status: Reports: Pain Controlled, Tolerating Diet, Ambulating, Urinating - Review of Systems General: Reports: Weakness, Malaise, Appetite (good ( taste is back)). Denies: Fever, Chills HEENT: Denies: Headaches, Sinus Congestion, Sore Throat, Visual Changes Pulmonary: Reports: Shortness of Breath, Cough (occasional). Denies: Sputum, Wheezing Cardiovascular: Reports: Dyspnea on Exertion. Denies: Chest Pain, Lightheadedness Gastrointestinal: Denies: Abdominal Pain, Difficulty Swallowing, Nausea, Vomiting Genitourinary: Denies: Dysuria, Burning, Urgency, Flank Pain Musculoskeletal: Denies: Neck Pain, Leg Pain, Joint Swelling Skin: Denies: Cyanosis, Jaundice, Bruising, Pruritis, Rash Neurological: Reports: Weakness. Denies: Confusion, Paresthesia, Tremors Psychiatric: Reports: No Symptoms - Patient Data Vitals - Most Recent: Last Vital Signs Temp 36.6 C 01/21/20 12:23 Pulse 60 01/21/20 12:23 Resp 20 01/21/20 12:23 BP 144/85 H 01/21/20 12:23 Pulse Ox 97 01/21/20 12:23 Weight - Most Recent: 108.862 kg I&O - Last 24 Hours: Intake & Output 01/20/20 01/21/20 01/21/20 22:59 06:59 14:59 Intake Total 1040 902 Output Total 1650 1200 Balance -610 -298 Lab Results Last 24 Hours: Laboratory Results - last 24 hr 01/20/20 01/20/20 01/20/20 Range/Units 16:58 18:30 20:40 APTT 41.2 H (22.0-34.0) SEC POC Glucose 120 H 121 H (83-110) mg/dl 01/21/20 01/21/20 01/21/20 Range/Units 02:45 08:08 09:33 APTT 75.4 H 45.3 H (22.0-34.0) SEC POC Glucose 126 H (83-110) mg/dl 01/21/20 Range/Units 11:38 APTT (22.0-34.0) SEC POC Glucose 182 H (83-110) mg/dl [place] Results Last 24 Hours: Microbiology 01/15/20 14:30 Aerobic Blood Culture - Final Blood - Venous - Iv Start NO GROWTH AFTER 5 DAYS Anaerobic Blood Culture - Final 01/17/20 12:05 Gram Stain - Final Sputum - Expectorated Sputum Culture - Final Normal [place] Med Orders - Current: Current Medications Acetaminophen (Tylenol) 650 mg PO Q4H PRN PRN Reason: Pain (Mild 1-3)/fever Last Admin: 01/21/20 09:11 Dose: 650 mg Documented by: Allopurinol (Zyloprim) 100 mg PO DAILY [facility] Last Admin: 01/21/20 09:10 Dose: 100 mg Documented by: Aspirin (Halfprin) 81 mg PO BEDTIME [facility] Last Admin: 01/20/20 20:51 Dose: 81 mg Documented by: Citalopram Hydrobromide (Celexa) 10 mg PO DAILY [facility] Last Admin: 01/21/20 09:10 Dose: 10 mg Documented by: Dextrose/Water (Dextrose 50% In Water) 25 ml IVPUSH Q1H PRN PRN Reason: blood sugar <70 Dextrose/Water (Dextrose 50% In Water) 50 ml IV ASDIRECTED PRN PRN Reason: Hypoglycemia Gabapentin (Neurontin) 300 mg PO BEDTIME [facility] Last Admin: 01/20/20 20:51 Dose: 300 mg Documented by: Glucagon (Glucagen) 1 mg IM ASDIRECTED PRN PRN Reason: Hypoglycemia Heparin Sodium/Sodium Chloride (Heparin 25,000 Units In 1/2 Ns 500 Ml) 25,000 units in 500 mls @ 19.595 mls/hr IV TITRATE [facility]; Protocol Last Titration: 01/21/20 10:52 Dose: 13 units/kg/hr, 28.304 mls/hr Documented by: Insulin Human Lispro (Humalog) 0 unit SUBCUT WITHMEALSANDBED [facility]; Protocol Last Admin: 01/21/20 12:25 Dose: 1 unit Documented by: Loratadine (Claritin) 10 mg PO DAILY [facility] Last Admin: 01/21/20 09:09 Dose: 10 mg Documented by: Metoprolol Tartrate (Lopressor) 12.5 mg PO BID [facility] Last Admin: 01/21/20 09:10 Dose: 12.5 mg Documented by: Multivitamins/Minerals (Vitamins And Minerals) 1 tab PO DAILY [facility] Last Admin: 01/21/20 09:09 Dose: 1 tab Documented by: Ondansetron HCl (Zofran Odt) 4 mg PO Q6H PRN PRN Reason: nausea, able to take PO Ondansetron HCl (Zofran) 4 mg IVPUSH Q6H PRN PRN Reason: Nausea/Vomiting Pantoprazole Sodium (Protonix) 40 mg PO BEDTIME [facility] Last Admin: 01/20/20 20:51 Dose: 40 mg Documented by: Fenofibrate 54 Mg (Tab *Own Med*) 0 each PO BEDTIME [facility] Last Admin: 01/20/20 20:53 Dose: 1 each Documented by: Ropinirole HCl (Requip) 2 mg PO TID [facility] Last Admin: 01/21/20 09:10 Dose: 2 mg Documented by: Sodium Chloride (Saline Flush) 10 ml FLUSH ASDIRECTED PRN PRN Reason: Keep Vein Open Last Admin: 01/17/20 05:10 Dose: 10 ml Documented by: Tamsulosin HCl (Flomax) 0.4 mg PO DAILY [facility] Last Admin: 01/21/20 09:10 Dose: 0.4 mg Documented by: Zolpidem Tartrate (Ambien) 5 mg PO BEDTIME PRN PRN Reason: Sleep Discontinued Medications Apixaban (Eliquis) 5 mg PO BID [facility] Last Admin: 01/18/20 08:52 Dose: 5 mg Documented by: Glipizide (Glucotrol) 5 mg PO BID [facility] Last Admin: 01/15/20 21:21 Dose: Not Given Documented by: Heparin Sodium (Porcine) (Heparin Sodium) 5,000 units SUBCUT Q8HR [facility] Last Admin: 01/15/20 17:38 Dose: Not Given Documented by: Heparin Sodium (Porcine) (Heparin Sodium) 1,000 units IVPUSH .BOLUS ONE Stop: 01/18/20 19:21 Last Admin: 01/18/20 19:39 Dose: 1,000 units Documented by: Heparin Sodium (Porcine) (Heparin Sodium) 1,000 units IVPUSH .BOLUS ONE Stop: 01/20/20 11:23 Last Admin: 01/20/20 12:17 Dose: 1,000 units Documented by: Heparin Sodium (Porcine) (Heparin Sodium) 1,000 units IVPUSH BOLUS ONE Stop: 01/20/20 20:01 Last Admin: 01/20/20 20:39 Dose: 1,000 units Documented by: Heparin Sodium (Porcine) (Heparin Sodium) 1,000 units IVPUSH .BOLUS ONE Stop: 01/21/20 10:34 Last Admin: 01/21/20 10:50 Dose: 1,000 units Documented by: Remdesivir 200 mg/ Sodium (Chloride) 210 mls @ 210 mls/hr IV ONETIME ONE Stop: 01/15/20 16:59 Last Admin: 01/15/20 16:23 Dose: 210 mls/hr Documented by: Remdesivir 100 mg/ Sodium (Chloride) 230 mls @ 230 mls/hr IV Q24H [facility] Stop: 01/19/20 16:59 Last Infusion: 01/19/20 17:30 Dose: Infused Documented by: Sodium Chloride (Saline Flush) 30 ml IV DAILY@1700 [facility] Stop: 01/19/20 17:01 Last Admin: 01/19/20 18:27 Dose: 30 ml Documented by: - Exam Quality Assessment: Supplemental Oxygen, DVT Prophylaxis. No: Central Line/PICC, Urine Catheter General: Alert, Oriented, Cooperative, No Acute Distress HEENT: Pupils Equal, Pupils Reactive, EOMI, Mucous Membr. Moist/[place] Neck: Supple, No JVD, No Thyromegaly Lungs: Clear to Auscultation, Normal Respiratory Effort, Decreased Breath Sounds, Crackles Cardiovascular: Regular Rate, Regular Rhythm, Murmurs GI/Abdominal Exam: Normal Bowel Sounds, Soft, Non-Tender, No Distention. No: Guarding, Rigid (Male) Exam: Deferred Back Exam: Normal Inspection Extremities: Normal Inspection, No Pedal Edema Skin: Warm, Dry, Intact Neurological: No New Focal Deficit Psy/Mental Status: Alert, Normal Affect, Normal Mood Sepsis Event Note - Evaluation Sepsis Screening Result: No Definite Risk - Focused Exam Vital Signs: Vital Signs Temp Pulse Pulse Resp BP BP Pulse Ox 01/21/20 12:23 36.6 C 60 20 144/85 H 97 01/21/20 09:10 97 114/72 01/21/20 09:06 36.8 C 98 20 114/72 93 L 01/21/20 03:33 36.6 C 88 20 124/81 94 L - Problem List Review Problem List Initiated/Reviewed/Updated: Yes - My Orders Last 24 Hours: My Active Orders 01/21/20 16:50 PTT,PARTIAL THROMBOPLSTIN TIME [COAG] Routine - Plan Plan:: This is a 79 Y/O Male presented with shortness of breath, cough, fever. Noted to have hypoxemia in the clinic. The Acute hypoxemic respiratory failure secondary to Covid 19 pneumonia and on suplement oxygen Impression and Plan: 1. Covid 19 pneumonia Known exposure symptoms started around 10 january Positive covid 19 screen on 01/13 pulmonary symptoms of cough, sob associated with hypoxemia 84% on RA 01/14 in clinic LFT: OK Renal fx: gfr>30 on admission treated with Remdesivir 01/14- follow renal fx. -Continue Dexamethasone, started on 01/14- - Has received Plasma on 01/15 and 01/16 evaluate for concurrent bacterial infections - pro-calcitonin levels: low - not on Abx 2. Ddimer is high and was increasing while on Apixaban - DVT prophylaxis: s topped Apixaban - he is on weight based heparin 3. Diabetes : Hold metformin Continue glipizide Follow blood sugars Use supplemental insulin and hypoglycemia treatment as needed 4. Obstructive sleep apnea Use CPAP at night 5. Coronary artery disease Continue aspirin, metoprolol, Hold statin while on remdesivir 6. Atrial fibrillation Rate control with metoprolol Continue anticoagulation
[2020-01-21] MEDS: Heparin Sodium/0.45% NaCl 25,000 UNITS/500 ML BAG IV SCH (14:33)
[2020-01-21] MEDS: Aspirin 81 MG Tab.EC PO SCH (21:21)
[2020-01-21] MEDS: Pantoprazole 40 MG Tab.CR PO SCH (21:22)
[2020-01-21] MEDS: Gabapentin 300 MG Cap PO SCH (21:22)
[2020-01-21] MEDS: FENOFIBRATE 54 MG PO SCH (21:23)
[2020-01-22 07:02] LABS: ANION GAP 10.9 mEq/L (7-13); CHLORIDE,CL 100 mmol/L (98-107); SODIUM,NA 135 mmol/L (136-145)
[2020-01-22] MEDS: Loratadine 10 MG Tab PO SCH (08:04)
[2020-01-22] MEDS: Tamsulosin 0.4 MG Cap.ER PO SCH (08:04)
[2020-01-22] MEDS: rOPINIRole 2 MG Tab PO SCH ×3 (08:04→21:21)
[2020-01-22] MEDS: Metoprolol Tartrate 25 MG Tab PO SCH ×2 (08:04→21:19)
[2020-01-22] MEDS: Citalopram 20 MG Tab PO SCH (08:06)
[2020-01-22] MEDS: Heparin Sodium/0.45% NaCl 25,000 UNITS/500 ML BAG IV SCH (08:07)
[2020-01-22] MEDS: Multivitamins, Therapeutic with Minerals Tab PO SCH (08:07)
[2020-01-22] MEDS: Allopurinol 100 MG Tab PO SCH (08:11)
[2020-01-22] MEDS: Insulin Lispro 100 Units/ML 3 ML Vial SUBCUT SCH ×4 (08:49→21:52)
--- NOTE | 2020-01-22 17:00 | PCM.PN ---
- General Info Date of Service: 01/22/20 Admission Dx/Problem (Free Text): Admission Diagnosis/Problem Admission Diagnosis/Problem Shortness of breath Subjective Update: Patient is still short of breath and requiring significant oxygen supplementation. Afebrile overnight. Functional Status: Reports: Pain Controlled - Review of Systems General: Reports: No Symptoms HEENT: Reports: No Symptoms Pulmonary: Reports: Shortness of Breath, Cough Cardiovascular: Reports: Edema Gastrointestinal: Reports: No Symptoms Musculoskeletal: Reports: No Symptoms Skin: Reports: No Symptoms Neurological: Reports: No Symptoms Psychiatric: Reports: No Symptoms - Patient Data Vitals - Most Recent: Last Vital Signs Temp 98.4 F 01/22/20 15:59 Pulse 122 H 01/22/20 15:59 Resp 22 H 01/22/20 16:00 BP 123/68 01/22/20 15:59 Pulse Ox 92 L 01/22/20 16:00 Weight - Most Recent: 240 lb I&O - Last 24 Hours: Intake & Output 01/22/20 01/22/20 01/22/20 06:59 14:59 22:59 Intake Total 1228 340 Output Total 650 650 Balance 578 -310 Lab Results Last 24 Hours: Laboratory Results - last 24 hr 01/21/20 01/21/20 01/21/20 Range/Units 17:05 21:10 23:05 WBC (5.0-10.0) 10^3/uL RBC (4.6-6.2) 10^6/uL Hgb (14.0-18.0) g/dL Hct (40.0-54.0) % MCV (80-100) fL MCH (27.0-34.0) pg MCHC (33.0-35.0) g/dL Plt Count (150-450) 10^3/uL Neut % (Auto) (42.2-75.2) % Lymph % (Auto) (20.5-50.1) % [place] % (Auto) (2-8) % Eos % (Auto) (1.0-3.0) % Baso % (Auto) (0.0-1.0) % APTT 51.2 H 65.5 H (22.0-34.0) SEC D-Dimer, Quantitative (0-400) ng/mL Sodium (136-145) mmol/L Potassium (3.5-5.1) mmol/L Chloride (98-107) mmol/L Carbon Dioxide (21-32) mmol/L Anion Gap (7-13) mEq/L BUN (7-18) mg/dL Creatinine (0.70-1.30) mg/dL Est Cr Clr Drug Dosing mL/min Estimated GFR (MDRD) Glucose (74-99) mg/dL POC Glucose 129 H (83-110) mg/dl Calcium (8.5-10.1) mg/dL 01/22/20 01/22/20 01/22/20 Range/Units 06:00 06:00 06:00 WBC 7.2 (5.0-10.0) 10^3/uL RBC 3.59 L (4.6-6.2) 10^6/uL Hgb 10.9 L (14.0-18.0) g/dL Hct 33.1 L (40.0-54.0) % MCV 92.2 (80-100) fL MCH 30.4 (27.0-34.0) pg MCHC 32.9 L (33.0-35.0) g/dL Plt Count 306 (150-450) 10^3/uL Neut % (Auto) 82.5 H (42.2-75.2) % Lymph % (Auto) 9.6 L (20.5-50.1) % [place] % (Auto) 6.3 (2-8) % Eos % (Auto) 1.3 (1.0-3.0) % Baso % (Auto) 0.3 (0.0-1.0) % APTT 63.0 H (22.0-34.0) SEC D-Dimer, Quantitative 2430 H (0-400) ng/mL Sodium 135 L (136-145) mmol/L Potassium 3.9 (3.5-5.1) mmol/L Chloride 100 (98-107) mmol/L Carbon Dioxide 28 (21-32) mmol/L Anion Gap 10.9 (7-13) mEq/L BUN 15 (7-18) mg/dL Creatinine 1.14 (0.70-1.30) mg/dL Est Cr Clr Drug Dosing 55.04 mL/min Estimated GFR (MDRD) > 60 Glucose 105 H (74-99) mg/dL POC Glucose (83-110) mg/dl Calcium 8.5 (8.5-10.1) mg/dL 01/22/20 01/22/20 Range/Units 08:03 11:52 WBC (5.0-10.0) 10^3/uL RBC (4.6-6.2) 10^6/uL Hgb (14.0-18.0) g/dL Hct (40.0-54.0) % MCV (80-100) fL MCH (27.0-34.0) pg MCHC (33.0-35.0) g/dL Plt Count (150-450) 10^3/uL Neut % (Auto) (42.2-75.2) % Lymph % (Auto) (20.5-50.1) % [place] % (Auto) (2-8) % Eos % (Auto) (1.0-3.0) % Baso % (Auto) (0.0-1.0) % APTT (22.0-34.0) SEC D-Dimer, Quantitative (0-400) ng/mL Sodium (136-145) mmol/L Potassium (3.5-5.1) mmol/L Chloride (98-107) mmol/L Carbon Dioxide (21-32) mmol/L Anion Gap (7-13) mEq/L BUN (7-18) mg/dL Creatinine (0.70-1.30) mg/dL Est Cr Clr Drug Dosing mL/min Estimated GFR (MDRD) Glucose (74-99) mg/dL POC Glucose 109 133 H (83-110) mg/dl Calcium (8.5-10.1) mg/dL Med Orders - Current: Current Medications Acetaminophen (Tylenol) 650 mg PO Q4H PRN PRN Reason: Pain (Mild 1-3)/fever Last Admin: 01/21/20 09:11 Dose: 650 mg Documented by: Allopurinol (Zyloprim) 100 mg PO DAILY [facility] Last Admin: 01/22/20 08:11 Dose: 100 mg Documented by: Aspirin (Halfprin) 81 mg PO BEDTIME [facility] Last Admin: 01/21/20 21:21 Dose: 81 mg Documented by: Citalopram Hydrobromide (Celexa) 10 mg PO DAILY [facility] Last Admin: 01/22/20 08:06 Dose: 10 mg Documented by: Dextrose/Water (Dextrose 50% In Water) 25 ml IVPUSH Q1H PRN PRN Reason: blood sugar <70 Dextrose/Water (Dextrose 50% In Water) 50 ml IV ASDIRECTED PRN PRN Reason: Hypoglycemia Gabapentin (Neurontin) 300 mg PO BEDTIME [facility] Last Admin: 01/21/20 21:22 Dose: 300 mg Documented by: Glucagon (Glucagen) 1 mg IM ASDIRECTED PRN PRN Reason: Hypoglycemia Heparin Sodium/Sodium Chloride (Heparin 25,000 Units In 1/2 Ns 500 Ml) 25,000 units in 500 mls @ 19.595 mls/hr IV TITRATE [facility]; Protocol Last Admin: 01/22/20 08:07 Dose: 13 units/kg/hr, 28.304 mls/hr Documented by: Insulin Human Lispro (Humalog) 0 unit SUBCUT WITHMEALSANDBED [facility]; Protocol Last Admin: 01/22/20 11:58 Dose: Not Given Documented by: Loratadine (Claritin) 10 mg PO DAILY [facility] Last Admin: 01/22/20 08:04 Dose: 10 mg Documented by: Metoprolol Tartrate (Lopressor) 12.5 mg PO BID [facility] Last Admin: 01/22/20 08:04 Dose: 12.5 mg Documented by: Multivitamins/Minerals (Vitamins And Minerals) 1 tab PO DAILY [facility] Last Admin: 01/22/20 08:07 Dose: 1 tab Documented by: Ondansetron HCl (Zofran Odt) 4 mg PO Q6H PRN PRN Reason: nausea, able to take PO Ondansetron HCl (Zofran) 4 mg IVPUSH Q6H PRN PRN Reason: Nausea/Vomiting Pantoprazole Sodium (Protonix) 40 mg PO BEDTIME [facility] Last Admin: 01/21/20 21:22 Dose: 40 mg Documented by: Fenofibrate 54 Mg (Tab *Own Med*) 0 each PO BEDTIME [facility] Last Admin: 01/21/20 21:23 Dose: 1 each Documented by: Ropinirole HCl (Requip) 2 mg PO TID [facility] Last Admin: 01/22/20 15:01 Dose: 2 mg Documented by: Sodium Chloride (Saline Flush) 10 ml FLUSH ASDIRECTED PRN PRN Reason: Keep Vein Open Last Admin: 01/17/20 05:10 Dose: 10 ml Documented by: Tamsulosin HCl (Flomax) 0.4 mg PO DAILY [facility] Last Admin: 01/22/20 08:04 Dose: 0.4 mg Documented by: Zolpidem Tartrate (Ambien) 5 mg PO BEDTIME PRN PRN Reason: Sleep Discontinued Medications Apixaban (Eliquis) 5 mg PO BID [facility] Last Admin: 01/18/20 08:52 Dose: 5 mg Documented by: Glipizide (Glucotrol) 5 mg PO BID [facility] Last Admin: 01/15/20 21:21 Dose: Not Given Documented by: Heparin Sodium (Porcine) (Heparin Sodium) 5,000 units SUBCUT Q8HR [facility] Last Admin: 01/15/20 17:38 Dose: Not Given Documented by: Heparin Sodium (Porcine) (Heparin Sodium) 1,000 units IVPUSH .BOLUS ONE Stop: 01/18/20 19:21 Last Admin: 01/18/20 19:39 Dose: 1,000 units Documented by: Heparin Sodium (Porcine) (Heparin Sodium) 1,000 units IVPUSH .BOLUS ONE Stop: 01/20/20 11:23 Last Admin: 01/20/20 12:17 Dose: 1,000 units Documented by: Heparin Sodium (Porcine) (Heparin Sodium) 1,000 units IVPUSH BOLUS ONE Stop: 01/20/20 20:01 Last Admin: 01/20/20 20:39 Dose: 1,000 units Documented by: Heparin Sodium (Porcine) (Heparin Sodium) 1,000 units IVPUSH .BOLUS ONE Stop: 01/21/20 10:34 Last Admin: 01/21/20 10:50 Dose: 1,000 units Documented by: Remdesivir 200 mg/ Sodium (Chloride) 210 mls @ 210 mls/hr IV ONETIME ONE Stop: 01/15/20 16:59 Last Admin: 01/15/20 16:23 Dose: 210 mls/hr Documented by: Remdesivir 100 mg/ Sodium (Chloride) 230 mls @ 230 mls/hr IV Q24H [facility] Stop: 01/19/20 16:59 Last Infusion: 01/19/20 17:30 Dose: Infused Documented by: Sodium Chloride (Saline Flush) 30 ml IV DAILY@1700 [facility] Stop: 01/19/20 17:01 Last Admin: 01/19/20 18:27 Dose: 30 ml Documented by: - Exam Quality Assessment: Supplemental Oxygen General: Alert, Oriented Neck: Supple Lungs: Rhonchi Cardiovascular: Regular Rate, Regular Rhythm GI/Abdominal Exam: Normal Bowel Sounds, Soft, Non-Tender, No Organomegaly, No Distention, No Abnormal Bruit, No Mass, Pelvis Stable Back Exam: Normal Inspection, Full Range of Motion Extremities: Pedal Edema Skin: Warm, Dry, Intact Neurological: No New Focal Deficit Psy/Mental Status: Alert, Normal Affect, Normal Mood Sepsis Event Note - Evaluation Sepsis Screening Result: No Definite Risk - Focused Exam Vital Signs: Vital Signs Temp Pulse Pulse Resp BP BP Pulse Ox 01/22/20 16:00 22 H 92 L 01/22/20 15:59 98.4 F 122 H 26 H 123/68 90 L 01/22/20 11:56 98.2 F 99 20 150/95 H 94 L 01/22/20 08:04 100 135/83 01/22/20 08:00 98.4 F 100 22 H 135/83 93 L - Problem List Review Problem List Initiated/Reviewed/Updated: Yes - Plan Plan:: 79 year old male who presented with shortness of breath, cough, fever and hypoxi a. Positive for Covid 19 pneumonia and on supplemental oxygen. Impression and Plan: 1. Covid 19 pneumonia Known exposure symptoms started around 10 january Positive covid 19 screen on 01/13 pulmonary symptoms of cough, sob associated with hypoxemia 84% on RA 01/14 in clinic LFT: OK Renal fx: gfr>30 on admission treated with Remdesivir 01/14- follow renal fx. -Continue Dexamethasone, started on 01/14- - Has received Plasma on 01/15 and 01/16 evaluate for concurrent bacterial infections - pro-calcitonin levels: low - not on Abx 2. Ddimer is high and was increasing while on Apixaban - DVT prophylaxis: stopped Apixaban - he is on weight based heparin 3. Diabetes : Hold metformin Continue glipizide Follow blood sugars Use supplemental insulin and hypoglycemia treatment as needed 4. Obstructive sleep apnea Use CPAP at night 5. Coronary artery disease Continue aspirin, metoprolol, Hold statin while on remdesivir 6. Atrial fibrillation Rate control with metoprolol Continue anticoagulation
[2020-01-22] MEDS ORDERED: Furosemide 20 MG/2 ML VIAL IVPUSH ONE (17:14)
[2020-01-22] MEDS: Aspirin 81 MG Tab.EC PO SCH (21:21)
[2020-01-22] MEDS: Pantoprazole 40 MG Tab.CR PO SCH (21:21)
[2020-01-22] MEDS: Gabapentin 300 MG Cap PO SCH (21:21)
[2020-01-22] MEDS: FENOFIBRATE 54 MG PO SCH (21:22)
[2020-01-23] MEDS: Heparin Sodium/0.45% NaCl 25,000 UNITS/500 ML BAG IV SCH (02:29)
[2020-01-23 07:12] LABS: ANION GAP 9.2 mEq/L (7-13)
[2020-01-23] MEDS: Allopurinol 100 MG Tab PO SCH (08:12)
[2020-01-23] MEDS: Tamsulosin 0.4 MG Cap.ER PO SCH (08:13)
[2020-01-23] MEDS: Citalopram 20 MG Tab PO SCH (08:13)
[2020-01-23] MEDS: Metoprolol Tartrate 25 MG Tab PO SCH ×2 (08:14→22:37)
[2020-01-23] MEDS: Multivitamins, Therapeutic with Minerals Tab PO SCH (08:16)
[2020-01-23] MEDS: Loratadine 10 MG Tab PO SCH (08:16)
[2020-01-23] MEDS: Insulin Lispro 100 Units/ML 3 ML Vial SUBCUT SCH ×4 (08:17→22:39)
[2020-01-23] MEDS: rOPINIRole 2 MG Tab PO SCH ×3 (08:17→22:37)
[2020-01-23] MEDS ORDERED: Furosemide 20 MG/2 ML VIAL IVPUSH ONE (13:01)
--- NOTE | 2020-01-23 13:02 | PCM.PN ---
- General Info Date of Service: 01/23/20 Admission Dx/Problem (Free Text): Admission Diagnosis/Problem Admission Diagnosis/Problem Shortness of breath Subjective Update: Patient is still short of breath but Oxygen down to 2L. Complains of generalized weakness and poor appetite. Afebrile overnight. Functional Status: Reports: Pain Controlled - Review of Systems General: Reports: Weakness HEENT: Reports: No Symptoms Pulmonary: Reports: Shortness of Breath, Cough Cardiovascular: Reports: Edema Gastrointestinal: Reports: No Symptoms Genitourinary: Reports: No Symptoms Musculoskeletal: Reports: No Symptoms Skin: Reports: No Symptoms Neurological: Reports: No Symptoms - Patient Data Vitals - Most Recent: Last Vital Signs Temp 97 F 01/23/20 12:00 Pulse 105 H 01/23/20 12:00 Resp 22 H 01/23/20 12:00 BP 127/80 01/23/20 12:00 Pulse Ox 90 L 01/23/20 12:00 Weight - Most Recent: 240 lb I&O - Last 24 Hours: Intake & Output 01/22/20 01/23/20 01/23/20 22:59 06:59 14:59 Intake Total 584 400 Output Total 1500 Balance -916 400 Lab Results Last 24 Hours: Laboratory Results - last 24 hr 01/22/20 01/22/20 01/23/20 Range/Units 16:59 21:18 06:32 WBC (5.0-10.0) 10^3/uL RBC (4.6-6.2) 10^6/uL Hgb (14.0-18.0) g/dL Hct (40.0-54.0) % MCV (80-100) fL MCH (27.0-34.0) pg MCHC (33.0-35.0) g/dL Plt Count (150-450) 10^3/uL APTT 54.1 H (22.0-34.0) SEC D-Dimer, Quantitative (0-400) ng/mL Sodium (136-145) mmol/L Potassium (3.5-5.1) mmol/L Chloride (98-107) mmol/L Carbon Dioxide (21-32) mmol/L Anion Gap (7-13) mEq/L BUN (7-18) mg/dL Creatinine (0.70-1.30) mg/dL Est Cr Clr Drug Dosing mL/min Estimated GFR (MDRD) Glucose (74-99) mg/dL POC Glucose 193 H 125 H (83-110) mg/dl Calcium (8.5-10.1) mg/dL Lactate Dehydrogenase (85-227) U/L 01/23/20 01/23/20 01/23/20 Range/Units 06:37 06:37 06:37 WBC 9.0 (5.0-10.0) 10^3/uL RBC 3.57 L (4.6-6.2) 10^6/uL Hgb 10.9 L (14.0-18.0) g/dL Hct 33.1 L (40.0-54.0) % MCV 92.7 (80-100) fL MCH 30.5 (27.0-34.0) pg MCHC 32.9 L (33.0-35.0) g/dL Plt Count 308 (150-450) 10^3/uL APTT (22.0-34.0) SEC D-Dimer, Quantitative 2550 H (0-400) ng/mL Sodium 135 L (136-145) mmol/L Potassium 4.2 (3.5-5.1) mmol/L Chloride 99 (98-107) mmol/L Carbon Dioxide 31 (21-32) mmol/L Anion Gap 9.2 (7-13) mEq/L BUN 14 (7-18) mg/dL Creatinine 1.23 (0.70-1.30) mg/dL Est Cr Clr Drug Dosing 51.02 mL/min Estimated GFR (MDRD) 57 Glucose 110 H (74-99) mg/dL POC Glucose (83-110) mg/dl Calcium 8.6 (8.5-10.1) mg/dL Lactate Dehydrogenase 250 H (85-227) U/L 01/23/20 01/23/20 Range/Units 08:06 12:04 WBC (5.0-10.0) 10^3/uL RBC (4.6-6.2) 10^6/uL Hgb (14.0-18.0) g/dL Hct (40.0-54.0) % MCV (80-100) fL MCH (27.0-34.0) pg MCHC (33.0-35.0) g/dL Plt Count (150-450) 10^3/uL APTT (22.0-34.0) SEC D-Dimer, Quantitative (0-400) ng/mL Sodium (136-145) mmol/L Potassium (3.5-5.1) mmol/L Chloride (98-107) mmol/L Carbon Dioxide (21-32) mmol/L Anion Gap (7-13) mEq/L BUN (7-18) mg/dL Creatinine (0.70-1.30) mg/dL Est Cr Clr Drug Dosing mL/min Estimated GFR (MDRD) Glucose (74-99) mg/dL POC Glucose 123 H 135 H (83-110) mg/dl Calcium (8.5-10.1) mg/dL Lactate Dehydrogenase (85-227) U/L Med Orders - Current: Current Medications Acetaminophen (Tylenol) 650 mg PO Q4H PRN PRN Reason: Pain (Mild 1-3)/fever Last Admin: 01/21/20 09:11 Dose: 650 mg Documented by: Allopurinol (Zyloprim) 100 mg PO DAILY [facility] Last Admin: 01/23/20 08:12 Dose: 100 mg Documented by: Aspirin (Halfprin) 81 mg PO BEDTIME [facility] Last Admin: 01/22/20 21:21 Dose: 81 mg Documented by: Citalopram Hydrobromide (Celexa) 10 mg PO DAILY [facility] Last Admin: 01/23/20 08:13 Dose: 10 mg Documented by: Dextrose/Water (Dextrose 50% In Water) 25 ml IVPUSH Q1H PRN PRN Reason: blood sugar <70 Dextrose/Water (Dextrose 50% In Water) 50 ml IV ASDIRECTED PRN PRN Reason: Hypoglycemia Gabapentin (Neurontin) 300 mg PO BEDTIME [facility] Last Admin: 01/22/20 21:21 Dose: 300 mg Documented by: Glucagon (Glucagen) 1 mg IM ASDIRECTED PRN PRN Reason: Hypoglycemia Heparin Sodium/Sodium Chloride (Heparin 25,000 Units In 1/2 Ns 500 Ml) 25,000 units in 500 mls @ 19.595 mls/hr IV TITRATE [facility]; Protocol Last Admin: 01/23/20 02:29 Dose: 13 units/kg/hr, 28.304 mls/hr Documented by: Insulin Human Lispro (Humalog) 0 unit SUBCUT WITHMEALSANDBED [facility]; Protocol Last Admin: 01/23/20 12:45 Dose: Not Given Documented by: Loratadine (Claritin) 10 mg PO DAILY [facility] Last Admin: 01/23/20 08:16 Dose: 10 mg Documented by: Metoprolol Tartrate (Lopressor) 12.5 mg PO BID [facility] Last Admin: 01/23/20 08:14 Dose: 12.5 mg Documented by: Multivitamins/Minerals (Vitamins And Minerals) 1 tab PO DAILY [facility] Last Admin: 01/23/20 08:16 Dose: 1 tab Documented by: Ondansetron HCl (Zofran Odt) 4 mg PO Q6H PRN PRN Reason: nausea, able to take PO Ondansetron HCl (Zofran) 4 mg IVPUSH Q6H PRN PRN Reason: Nausea/Vomiting Pantoprazole Sodium (Protonix) 40 mg PO BEDTIME [facility] Last Admin: 01/22/20 21:21 Dose: 40 mg Documented by: Fenofibrate 54 Mg (Tab *Own Med*) 0 each PO BEDTIME [facility] Last Admin: 01/22/20 21:22 Dose: 1 each Documented by: Ropinirole HCl (Requip) 2 mg PO TID [facility] Last Admin: 01/23/20 08:17 Dose: 2 mg Documented by: Sodium Chloride (Saline Flush) 10 ml FLUSH ASDIRECTED PRN PRN Reason: Keep Vein Open Last Admin: 01/17/20 05:10 Dose: 10 ml Documented by: Tamsulosin HCl (Flomax) 0.4 mg PO DAILY [facility] Last Admin: 01/23/20 08:13 Dose: 0.4 mg Documented by: Zolpidem Tartrate (Ambien) 5 mg PO BEDTIME PRN PRN Reason: Sleep Discontinued Medications Apixaban (Eliquis) 5 mg PO BID [facility] Last Admin: 01/18/20 08:52 Dose: 5 mg Documented by: Furosemide (Lasix) 20 mg IVPUSH NOW ONE Stop: 01/22/20 17:15 Last Admin: 01/22/20 17:50 Dose: 20 mg Documented by: Glipizide (Glucotrol) 5 mg PO BID [facility] Last Admin: 01/15/20 21:21 Dose: Not Given Documented by: Heparin Sodium (Porcine) (Heparin Sodium) 5,000 units SUBCUT Q8HR [facility] Last Admin: 01/15/20 17:38 Dose: Not Given Documented by: Heparin Sodium (Porcine) (Heparin Sodium) 1,000 units IVPUSH .BOLUS ONE Stop: 01/18/20 19:21 Last Admin: 01/18/20 19:39 Dose: 1,000 units Documented by: Heparin Sodium (Porcine) (Heparin Sodium) 1,000 units IVPUSH .BOLUS ONE Stop: 01/20/20 11:23 Last Admin: 01/20/20 12:17 Dose: 1,000 units Documented by: Heparin Sodium (Porcine) (Heparin Sodium) 1,000 units IVPUSH BOLUS ONE Stop: 01/20/20 20:01 Last Admin: 01/20/20 20:39 Dose: 1,000 units Documented by: Heparin Sodium (Porcine) (Heparin Sodium) 1,000 units IVPUSH .BOLUS ONE Stop: 01/21/20 10:34 Last Admin: 01/21/20 10:50 Dose: 1,000 units Documented by: Remdesivir 200 mg/ Sodium (Chloride) 210 mls @ 210 mls/hr IV ONETIME ONE Stop: 01/15/20 16:59 Last Admin: 01/15/20 16:23 Dose: 210 mls/hr Documented by: Remdesivir 100 mg/ Sodium (Chloride) 230 mls @ 230 mls/hr IV Q24H [facility] Stop: 01/19/20 16:59 Last Infusion: 01/19/20 17:30 Dose: Infused Documented by: Sodium Chloride (Saline Flush) 30 ml IV DAILY@1700 [facility] Stop: 01/19/20 17:01 Last Admin: 01/19/20 18:27 Dose: 30 ml Documented by: - Exam Quality Assessment: Supplemental Oxygen General: Alert, Oriented HEENT: Pupils Equal, Pupils Reactive, EOMI, Mucous Membr. Moist/[place] Neck: Supple Lungs: Normal Respiratory Effort, Crackles Cardiovascular: Regular Rate, Regular Rhythm GI/Abdominal Exam: Normal Bowel Sounds, Soft, Non-Tender, No Organomegaly, No Distention, No Abnormal Bruit, No Mass, Pelvis Stable Back Exam: Normal Inspection, Full Range of Motion Extremities: Pedal Edema Skin: Warm, Dry, Intact Neurological: No New Focal Deficit Psy/Mental Status: Alert, Normal Affect, Normal Mood Sepsis Event Note - Evaluation Sepsis Screening Result: No Definite Risk - Focused Exam Vital Signs: Vital Signs Temp Pulse Pulse Resp BP BP Pulse Ox 01/23/20 12:00 97 F 105 H 22 H 127/80 90 L 01/23/20 10:36 92 L 01/23/20 08:14 101 H 147/77 H 01/23/20 08:00 98.9 F 101 H 20 147/77 H 95 01/23/20 03:09 98.8 F 96 20 130/75 95 - Problem List Review Problem List Initiated/Reviewed/Updated: Yes - Plan Plan:: 79 year old male who presented with shortness of breath, cough, fever and hypoxia. Positive for Covid 19 pneumonia and on supplemental oxygen. Impression and Plan: 1. Covid 19 pneumonia Known exposure symptoms started around 10 january Positive covid 19 screen on 01/13 pulmonary symptoms of cough, sob associated with hypoxemia 84% on RA 01/14 in clinic LFT: OK Renal fx: gfr>30 on admission treated with Remdesivir 01/14- follow renal fx. -Continue Dexamethasone, started on 01/14- - Has received Plasma on 01/15 and 01/16 evaluate for concurrent bacterial infections - pro-calcitonin levels: low - not on Abx 2. Ddimer is high and was increasing while on Apixaban - DVT prophylaxis: stopped Apixaban - he is on weight based heparin 3. Diabetes : Hold metformin Continue glipizide Follow blood sugars Use supplemental insulin and hypoglycemia treatment as needed 4. Obstructive sleep apnea Use CPAP at night 5. Coronary artery disease Continue aspirin, metoprolol, Resume Statin 6. Atrial fibrillation Rate control with metoprolol Continue anticoagulation
[2020-01-23] MEDS: Simvastatin 10 MG Tab PO SCH (22:36)
[2020-01-23] MEDS: Aspirin 81 MG Tab.EC PO SCH (22:36)
[2020-01-23] MEDS: Pantoprazole 40 MG Tab.CR PO SCH (22:37)
[2020-01-23] MEDS: Gabapentin 300 MG Cap PO SCH (22:37)
[2020-01-23] MEDS: FENOFIBRATE 54 MG PO SCH (22:40)
[2020-01-24] MEDS: Tamsulosin 0.4 MG Cap.ER PO SCH (08:37)
[2020-01-24] MEDS: Insulin Lispro 100 Units/ML 3 ML Vial SUBCUT SCH ×4 (08:37→20:45)
[2020-01-24] MEDS: Sodium Chloride 0.9% 10 ML Syringe FLUSH PRN (08:37)
[2020-01-24] MEDS: Loratadine 10 MG Tab PO SCH (08:37)
[2020-01-24] MEDS: Multivitamins, Therapeutic with Minerals Tab PO SCH (08:37)
[2020-01-24] MEDS: Metoprolol Tartrate 25 MG Tab PO SCH ×2 (08:38→20:42)
[2020-01-24] MEDS: Allopurinol 100 MG Tab PO SCH (08:38)
[2020-01-24] MEDS: Furosemide 40 MG Tab PO SCH (08:38)
[2020-01-24] MEDS: rOPINIRole 2 MG Tab PO SCH ×3 (08:38→20:43)
[2020-01-24] MEDS: Citalopram 20 MG Tab PO SCH (08:39)
[2020-01-24] MEDS: Apixaban 5 MG Tab PO SCH ×2 (10:27→20:41)
--- NOTE | 2020-01-24 11:13 | PCM.PN ---
- General Info Date of Service: 01/24/20 Admission Dx/Problem (Free Text): Admission Diagnosis/Problem Admission Diagnosis/Problem Shortness of breath Subjective Update: Patient seen and examined today. Doing okay. Has no new complaints. Still requiring supplemental oxygen. Currently on 6 L via nasal cannula Functional Status: Reports: Pain Controlled - Review of Systems General: Reports: No Symptoms HEENT: Reports: No Symptoms Pulmonary: Reports: No Symptoms Cardiovascular: Reports: No Symptoms Gastrointestinal: Reports: No Symptoms Genitourinary: Reports: No Symptoms Musculoskeletal: Reports: No Symptoms Skin: Reports: No Symptoms Neurological: Reports: No Symptoms Psychiatric: Reports: No Symptoms - Patient Data Vitals - Most Recent: Last Vital Signs Temp 98.7 F 01/24/20 08:33 Pulse 89 01/24/20 08:38 Resp 20 01/24/20 08:33 BP 121/70 01/24/20 08:38 Pulse Ox 93 L 01/24/20 10:26 Weight - Most Recent: 236 lb 9.6 oz I&O - Last 24 Hours: Intake & Output 01/23/20 01/24/20 01/24/20 22:59 06:59 14:59 Intake Total 200 600 Output Total 725 Balance 200 -125 Lab Results Last 24 Hours: Laboratory Results - last 24 hr 01/23/20 01/23/20 01/23/20 Range/Units 12:04 17:19 22:29 APTT (22.0-34.0) SEC POC Glucose 135 H 163 H 121 H (83-110) mg/dl 01/24/20 01/24/20 Range/Units 06:48 08:36 APTT 25.4 (22.0-34.0) SEC POC Glucose 114 H (83-110) mg/dl Med Orders - Current: Current Medications Acetaminophen (Tylenol) 650 mg PO Q4H PRN PRN Reason: Pain (Mild 1-3)/fever Last Admin: 01/21/20 09:11 Dose: 650 mg Documented by: Allopurinol (Zyloprim) 100 mg PO DAILY [facility] Last Admin: 01/24/20 08:38 Dose: 100 mg Documented by: Apixaban (Eliquis) 5 mg PO BID [facility] Last Admin: 01/24/20 10:27 Dose: 5 mg Documented by: Aspirin (Halfprin) 81 mg PO BEDTIME [facility] Last Admin: 01/23/20 22:36 Dose: 81 mg Documented by: Citalopram Hydrobromide (Celexa) 10 mg PO DAILY [facility] Last Admin: 01/24/20 08:39 Dose: 10 mg Documented by: Dextrose/Water (Dextrose 50% In Water) 25 ml IVPUSH Q1H PRN PRN Reason: blood sugar <70 Dextrose/Water (Dextrose 50% In Water) 50 ml IV ASDIRECTED PRN PRN Reason: Hypoglycemia Furosemide (Lasix) 40 mg PO DAILY [facility] Last Admin: 01/24/20 08:38 Dose: 40 mg Documented by: Gabapentin (Neurontin) 300 mg PO BEDTIME [facility] Last Admin: 01/23/20 22:37 Dose: 300 mg Documented by: Glucagon (Glucagen) 1 mg IM ASDIRECTED PRN PRN Reason: Hypoglycemia Insulin Human Lispro (Humalog) 0 unit SUBCUT WITHMEALSANDBED [facility]; Protocol Last Admin: 01/24/20 08:37 Dose: Not Given Documented by: Loratadine (Claritin) 10 mg PO DAILY [facility] Last Admin: 01/24/20 08:37 Dose: 10 mg Documented by: Metoprolol Tartrate (Lopressor) 12.5 mg PO BID [facility] Last Admin: 01/24/20 08:38 Dose: 12.5 mg Documented by: Multivitamins/Minerals (Vitamins And Minerals) 1 tab PO DAILY [facility] Last Admin: 01/24/20 08:37 Dose: 1 tab Documented by: Ondansetron HCl (Zofran Odt) 4 mg PO Q6H PRN PRN Reason: nausea, able to take PO Ondansetron HCl (Zofran) 4 mg IVPUSH Q6H PRN PRN Reason: Nausea/Vomiting Pantoprazole Sodium (Protonix) 40 mg PO BEDTIME [facility] Last Admin: 01/23/20 22:37 Dose: 40 mg Documented by: Fenofibrate 54 Mg (Tab *Own Med*) 0 each PO BEDTIME [facility] Last Admin: 01/23/20 22:40 Dose: 1 each Documented by: Ropinirole HCl (Requip) 2 mg PO TID [facility] Last Admin: 01/24/20 08:38 Dose: 2 mg Documented by: Simvastatin (Zocor) 40 mg PO BEDTIME [facility] Last Admin: 01/23/20 22:36 Dose: 40 mg Documented by: Sodium Chloride (Saline Flush) 10 ml FLUSH ASDIRECTED PRN PRN Reason: Keep Vein Open Last Admin: 01/24/20 08:37 Dose: 10 ml Documented by: Tamsulosin HCl (Flomax) 0.4 mg PO DAILY [facility] Last Admin: 01/24/20 08:37 Dose: 0.4 mg Documented by: Zolpidem Tartrate (Ambien) 5 mg PO BEDTIME PRN PRN Reason: Sleep Discontinued Medications Apixaban (Eliquis) 5 mg PO BID [facility] Last Admin: 01/18/20 08:52 Dose: 5 mg Documented by: Furosemide (Lasix) 20 mg IVPUSH NOW ONE Stop: 01/22/20 17:15 Last Admin: 01/22/20 17:50 Dose: 20 mg Documented by: Furosemide (Lasix) 20 mg IVPUSH ONETIME ONE Stop: 01/23/20 13:02 Last Admin: 01/23/20 13:41 Dose: 20 mg Documented by: Glipizide (Glucotrol) 5 mg PO BID [facility] Last Admin: 01/15/20 21:21 Dose: Not Given Documented by: Heparin Sodium (Porcine) (Heparin Sodium) 5,000 units SUBCUT Q8HR [facility] Last Admin: 01/15/20 17:38 Dose: Not Given Documented by: Heparin Sodium (Porcine) (Heparin Sodium) 1,000 units IVPUSH .BOLUS ONE Stop: 01/18/20 19:21 Last Admin: 01/18/20 19:39 Dose: 1,000 units Documented by: Heparin Sodium (Porcine) (Heparin Sodium) 1,000 units IVPUSH .BOLUS ONE Stop: 01/20/20 11:23 Last Admin: 01/20/20 12:17 Dose: 1,000 units Documented by: Heparin Sodium (Porcine) (Heparin Sodium) 1,000 units IVPUSH BOLUS ONE Stop: 01/20/20 20:01 Last Admin: 01/20/20 20:39 Dose: 1,000 units Documented by: Heparin Sodium (Porcine) (Heparin Sodium) 1,000 units IVPUSH .BOLUS ONE Stop: 01/21/20 10:34 Last Admin: 01/21/20 10:50 Dose: 1,000 units Documented by: Remdesivir 200 mg/ Sodium (Chloride) 210 mls @ 210 mls/hr IV ONETIME ONE Stop: 01/15/20 16:59 Last Admin: 01/15/20 16:23 Dose: 210 mls/hr Documented by: Remdesivir 100 mg/ Sodium (Chloride) 230 mls @ 230 mls/hr IV Q24H [facility] Stop: 01/19/20 16:59 Last Infusion: 01/19/20 17:30 Dose: Infused Documented by: Heparin Sodium/Sodium Chloride (Heparin 25,000 Units In 1/2 Ns 500 Ml) 25,000 units in 500 mls @ 19.595 mls/hr IV TITRATE [facility]; Protocol Last Titration: 01/23/20 14:02 Dose: 13 units/kg/hr, 28.304 mls/hr Documented by: Sodium Chloride (Saline Flush) 30 ml IV DAILY@1700 [facility] Stop: 01/19/20 17:01 Last Admin: 01/19/20 18:27 Dose: 30 ml Documented by: - Exam Quality Assessment: Supplemental Oxygen, DVT Prophylaxis General: Alert, Oriented HEENT: Pupils Equal, Pupils Reactive, EOMI, Mucous Membr. Moist/[place] Neck: Supple Lungs: Clear to Auscultation, Normal Respiratory Effort Cardiovascular: Regular Rate, Regular Rhythm GI/Abdominal Exam: Normal Bowel Sounds, Soft, Non-Tender, No Organomegaly, No Distention, No Abnormal Bruit, No Mass, Pelvis Stable (Male) Exam: No Hernia, Normal Inspection, Normal Prostate, Circumcised Back Exam: Normal Inspection, Full Range of Motion Extremities: Normal Inspection, Normal Range of Motion, Non-Tender, No Pedal Edema, Normal Capillary Refill Skin: Warm, Dry, Intact Wound/Incisions: Healing Well Neurological: No New Focal Deficit Psy/Mental Status: Alert, Normal Affect, Normal Mood Sepsis Event Note - Evaluation Sepsis Screening Result: No Definite Risk - Focused Exam Vital Signs: Vital Signs Temp Pulse Pulse Resp BP BP Pulse Ox 01/24/20 10:26 01/24/20 08:38 89 121/70 01/24/20 08:33 98.7 F 89 20 121/70 92 L 01/24/20 02:46 91 L 01/24/20 02:38 97.5 F 92 20 115/66 86 L Pulse Ox 01/24/20 10:26 93 L 01/24/20 08:38 01/24/20 08:33 01/24/20 02:46 01/24/20 02:38 - Problem List Review Problem List Initiated/Reviewed/Updated: Yes - My Orders Last 24 Hours: My Active Orders 01/24/20 09:00 Apixaban [Eliquis] 5 mg PO BID - Plan Plan:: 79 year old male who presented with shortness of breath, cough, fever and hypoxia. Positive for Covid 19 pneumonia and on supplemental oxygen. Impression and Plan: 1. Covid 19 pneumonia symptoms started around 10 january Positive covid 19 screen on 01/13 Completed remdesivir -Continue Dexamethasone to complete 10-day course - Has received Plasma on 01/15 and 01/16 - pro-calcitonin levels: low -Hold Abx 2. Acute respiratory failure with hypoxia due to COVID-19 pneumonia Continue supplemental oxygen and wean off as able 2. Elevated D-dimer D-dimer Eliquis for DVT prophylaxis 3. Diabetes : Hold metformin Continue glipizide Follow blood sugars Use supplemental insulin and hypoglycemia treatment as needed 4. Obstructive sleep apnea Use CPAP at night 5. Coronary artery disease Continue aspirin, metoprolol, Resume Statin 6. Atrial fibrillation Rate control with metoprolol Continue anticoagulation
[2020-01-24] MEDS: Simvastatin 10 MG Tab PO SCH (20:40)
[2020-01-24] MEDS: Aspirin 81 MG Tab.EC PO SCH (20:41)
[2020-01-24] MEDS: Pantoprazole 40 MG Tab.CR PO SCH (20:41)
[2020-01-24] MEDS: Gabapentin 300 MG Cap PO SCH (20:41)
[2020-01-24] MEDS: FENOFIBRATE 54 MG PO SCH (20:41)
[2020-01-24] MEDS: Acetaminophen 325 MG Tab PO PRN (23:06)
[2020-01-25] MEDS: Insulin Lispro 100 Units/ML 3 ML Vial SUBCUT SCH ×4 (07:53→21:06)
[2020-01-25] MEDS: Metoprolol Tartrate 25 MG Tab PO SCH ×2 (09:23→21:05)
[2020-01-25] MEDS: Tamsulosin 0.4 MG Cap.ER PO SCH (09:23)
[2020-01-25] MEDS: Allopurinol 100 MG Tab PO SCH (09:23)
[2020-01-25] MEDS: Loratadine 10 MG Tab PO SCH (09:23)
[2020-01-25] MEDS: Furosemide 40 MG Tab PO SCH (09:23)
[2020-01-25] MEDS: Apixaban 5 MG Tab PO SCH ×2 (09:25→21:04)
[2020-01-25] MEDS: rOPINIRole 2 MG Tab PO SCH ×3 (09:25→21:05)
[2020-01-25] MEDS: Multivitamins, Therapeutic with Minerals Tab PO SCH (09:25)
[2020-01-25] MEDS: Citalopram 20 MG Tab PO SCH (09:25)
[2020-01-25 11:50] LABS: ANION GAP 10.9 mEq/L (7-13)
--- NOTE | 2020-01-25 12:14 | PCM.PN ---
- General Info Date of Service: 01/25/20 Admission Dx/Problem (Free Text): Admission Diagnosis/Problem Admission Diagnosis/Problem acute respiratory failure with hypoxia due to Covid pneumonia Subjective Update: Patient seen and examined today. Doing okay. His oxygen requirement continued to improve. He is on 5 L this morning via nasal cannula. Has no new complaints. D-dimer trended up. Will send for CTA chest to rule out PE. Functional Status: Reports: Pain Controlled - Review of Systems General: Reports: No Symptoms HEENT: Reports: No Symptoms Pulmonary: Reports: No Symptoms Cardiovascular: Reports: No Symptoms Gastrointestinal: Reports: No Symptoms Genitourinary: Reports: No Symptoms Musculoskeletal: Reports: No Symptoms Skin: Reports: No Symptoms Neurological: Reports: No Symptoms Psychiatric: Reports: No Symptoms - Patient Data Vitals - Most Recent: Last Vital Signs Temp 97.3 F 01/25/20 09:22 Pulse 94 01/25/20 09:23 Resp 20 01/25/20 09:22 BP 112/67 01/25/20 09:23 Pulse Ox 95 01/25/20 09:25 Weight - Most Recent: 236 lb 9.6 oz I&O - Last 24 Hours: Intake & Output 01/24/20 01/25/20 01/25/20 22:59 06:59 14:59 Intake Total 700 Output Total 650 Balance 50 Lab Results Last 24 Hours: Laboratory Results - last 24 hr 01/24/20 01/24/20 01/24/20 Range/Units 12:25 17:23 20:37 WBC (5.0-10.0) 10^3/uL RBC (4.6-6.2) 10^6/uL Hgb (14.0-18.0) g/dL Hct (40.0-54.0) % MCV (80-100) fL MCH (27.0-34.0) pg MCHC (33.0-35.0) g/dL Plt Count (150-450) 10^3/uL PT (9.0-12.0) SEC INR (0.9-1.2) D-Dimer, Quantitative (0-400) ng/mL Sodium (136-145) mmol/L Potassium (3.5-5.1) mmol/L Chloride (98-107) mmol/L Carbon Dioxide (21-32) mmol/L Anion Gap (7-13) mEq/L BUN (7-18) mg/dL Creatinine (0.70-1.30) mg/dL Est Cr Clr Drug Dosing mL/min Estimated GFR (MDRD) BUN/Creatinine Ratio (No establ ref range) Glucose (74-99) mg/dL POC Glucose 168 H 166 H 158 H (83-110) mg/dl Calcium (8.5-10.1) mg/dL Ferritin (26-388) mg/mL Total Bilirubin (0.2-1.0) mg/dL AST (15-37) U/L ALT (16-63) U/L Alkaline Phosphatase (46-116) U/L Lactate Dehydrogenase (85-227) U/L Total Protein (6.4-8.2) g/dL Albumin (3.4-5.0) g/dL Globulin Albumin/Globulin Ratio 01/25/20 01/25/20 01/25/20 Range/Units 07:53 10:40 10:40 WBC 10.0 (5.0-10.0) 10^3/uL RBC 3.45 L (4.6-6.2) 10^6/uL Hgb 10.4 L (14.0-18.0) g/dL Hct 32.3 L (40.0-54.0) % MCV 93.6 (80-100) fL MCH 30.1 (27.0-34.0) pg MCHC 32.2 L (33.0-35.0) g/dL Plt Count 322 (150-450) 10^3/uL PT (9.0-12.0) SEC INR (0.9-1.2) D-Dimer, Quantitative 3210 H (0-400) ng/mL Sodium (136-145) mmol/L Potassium (3.5-5.1) mmol/L Chloride (98-107) mmol/L Carbon Dioxide (21-32) mmol/L Anion Gap (7-13) mEq/L BUN (7-18) mg/dL Creatinine (0.70-1.30) mg/dL Est Cr Clr Drug Dosing mL/min Estimated GFR (MDRD) BUN/Creatinine Ratio (No establ ref range) Glucose (74-99) mg/dL POC Glucose 135 H (83-110) mg/dl Calcium (8.5-10.1) mg/dL Ferritin (26-388) mg/mL Total Bilirubin (0.2-1.0) mg/dL AST (15-37) U/L ALT (16-63) U/L Alkaline Phosphatase (46-116) U/L Lactate Dehydrogenase (85-227) U/L Total Protein (6.4-8.2) g/dL Albumin (3.4-5.0) g/dL Globulin Albumin/Globulin Ratio 01/25/20 01/25/20 01/25/20 Range/Units 10:40 10:40 10:40 WBC (5.0-10.0) 10^3/uL RBC (4.6-6.2) 10^6/uL Hgb (14.0-18.0) g/dL Hct (40.0-54.0) % MCV (80-100) fL MCH (27.0-34.0) pg MCHC (33.0-35.0) g/dL Plt Count (150-450) 10^3/uL PT 13.0 H (9.0-12.0) SEC INR 1.4 H (0.9-1.2) D-Dimer, Quantitative (0-400) ng/mL Sodium 138 (136-145) mmol/L Potassium 3.9 (3.5-5.1) mmol/L Chloride 101 (98-107) mmol/L Carbon Dioxide 30 (21-32) mmol/L Anion Gap 10.9 (7-13) mEq/L BUN 17 (7-18) mg/dL Creatinine 1.23 (0.70-1.30) mg/dL Est Cr Clr Drug Dosing 51.02 mL/min Estimated GFR (MDRD) 57 BUN/Creatinine Ratio 13.8 (No establ ref range) Glucose 199 H (74-99) mg/dL POC Glucose (83-110) mg/dl Calcium 8.1 L (8.5-10.1) mg/dL Ferritin 380 (26-388) mg/mL Total Bilirubin 0.5 (0.2-1.0) mg/dL AST 90 H (15-37) U/L ALT 76 H (16-63) U/L Alkaline Phosphatase 95 (46-116) U/L Lactate Dehydrogenase 222 (85-227) U/L Total Protein 5.5 L (6.4-8.2) g/dL Albumin 1.6 L (3.4-5.0) g/dL Globulin 3.9 Albumin/Globulin Ratio 0.41 Med Orders - Current: Current Medications Acetaminophen (Tylenol) 650 mg PO Q4H PRN PRN Reason: Pain (Mild 1-3)/fever Last Admin: 01/24/20 23:06 Dose: 650 mg Documented by: Allopurinol (Zyloprim) 100 mg PO DAILY [facility] Last Admin: 01/25/20 09:23 Dose: 100 mg Documented by: Apixaban (Eliquis) 5 mg PO BID [facility] Last Admin: 01/25/20 09:25 Dose: 5 mg Documented by: Aspirin (Halfprin) 81 mg PO BEDTIME [facility] Last Admin: 01/24/20 20:41 Dose: 81 mg Documented by: Citalopram Hydrobromide (Celexa) 10 mg PO DAILY [facility] Last Admin: 01/25/20 09:25 Dose: 10 mg Documented by: Dextrose/Water (Dextrose 50% In Water) 25 ml IVPUSH Q1H PRN PRN Reason: blood sugar <70 Dextrose/Water (Dextrose 50% In Water) 50 ml IV ASDIRECTED PRN PRN Reason: Hypoglycemia Furosemide (Lasix) 40 mg PO DAILY [facility] Last Admin: 01/25/20 09:23 Dose: 40 mg Documented by: Gabapentin (Neurontin) 300 mg PO BEDTIME [facility] Last Admin: 01/24/20 20:41 Dose: 300 mg Documented by: Glucagon (Glucagen) 1 mg IM ASDIRECTED PRN PRN Reason: Hypoglycemia Insulin Human Lispro (Humalog) 0 unit SUBCUT WITHMEALSANDBED [facility]; Protocol Last Admin: 01/25/20 07:53 Dose: Not Given Documented by: Loratadine (Claritin) 10 mg PO DAILY [facility] Last Admin: 01/25/20 09:23 Dose: 10 mg Documented by: Metoprolol Tartrate (Lopressor) 12.5 mg PO BID [facility] Last Admin: 01/25/20 09:23 Dose: 12.5 mg Documented by: Multivitamins/Minerals (Vitamins And Minerals) 1 tab PO DAILY [facility] Last Admin: 01/25/20 09:25 Dose: 1 tab Documented by: Ondansetron HCl (Zofran Odt) 4 mg PO Q6H PRN PRN Reason: nausea, able to take PO Ondansetron HCl (Zofran) 4 mg IVPUSH Q6H PRN PRN Reason: Nausea/Vomiting Pantoprazole Sodium (Protonix) 40 mg PO BEDTIME [facility] Last Admin: 01/24/20 20:41 Dose: 40 mg Documented by: Fenofibrate 54 Mg (Tab *Own Med*) 0 each PO BEDTIME [facility] Last Admin: 01/24/20 20:41 Dose: 1 each Documented by: Ropinirole HCl (Requip) 2 mg PO TID [facility] Last Admin: 01/25/20 09:25 Dose: 2 mg Documented by: Simvastatin (Zocor) 40 mg PO BEDTIME [facility] Last Admin: 01/24/20 20:40 Dose: 40 mg Documented by: Sodium Chloride (Saline Flush) 10 ml FLUSH ASDIRECTED PRN PRN Reason: Keep Vein Open Last Admin: 01/24/20 08:37 Dose: 10 ml Documented by: Tamsulosin HCl (Flomax) 0.4 mg PO DAILY [facility] Last Admin: 01/25/20 09:23 Dose: 0.4 mg Documented by: Zolpidem Tartrate (Ambien) 5 mg PO BEDTIME PRN PRN Reason: Sleep Discontinued Medications Apixaban (Eliquis) 5 mg PO BID [facility] Last Admin: 01/18/20 08:52 Dose: 5 mg Documented by: Furosemide (Lasix) 20 mg IVPUSH NOW ONE Stop: 01/22/20 17:15 Last Admin: 01/22/20 17:50 Dose: 20 mg Documented by: Furosemide (Lasix) 20 mg IVPUSH ONETIME ONE Stop: 01/23/20 13:02 Last Admin: 01/23/20 13:41 Dose: 20 mg Documented by: Glipizide (Glucotrol) 5 mg PO BID [facility] Last Admin: 01/15/20 21:21 Dose: Not Given Documented by: Heparin Sodium (Porcine) (Heparin Sodium) 5,000 units SUBCUT Q8HR [facility] Last Admin: 01/15/20 17:38 Dose: Not Given Documented by: Heparin Sodium (Porcine) (Heparin Sodium) 1,000 units IVPUSH .BOLUS ONE Stop: 01/18/20 19:21 Last Admin: 01/18/20 19:39 Dose: 1,000 units Documented by: Heparin Sodium (Porcine) (Heparin Sodium) 1,000 units IVPUSH .BOLUS ONE Stop: 01/20/20 11:23 Last Admin: 01/20/20 12:17 Dose: 1,000 units Documented by: Heparin Sodium (Porcine) (Heparin Sodium) 1,000 units IVPUSH BOLUS ONE Stop: 01/20/20 20:01 Last Admin: 01/20/20 20:39 Dose: 1,000 units Documented by: Heparin Sodium (Porcine) (Heparin Sodium) 1,000 units IVPUSH .BOLUS ONE Stop: 01/21/20 10:34 Last Admin: 01/21/20 10:50 Dose: 1,000 units Documented by: Remdesivir 200 mg/ Sodium (Chloride) 210 mls @ 210 mls/hr IV ONETIME ONE Stop: 01/15/20 16:59 Last Admin: 01/15/20 16:23 Dose: 210 mls/hr Documented by: Remdesivir 100 mg/ Sodium (Chloride) 230 mls @ 230 mls/hr IV Q24H [facility] Stop: 01/19/20 16:59 Last Infusion: 01/19/20 17:30 Dose: Infused Documented by: Heparin Sodium/Sodium Chloride (Heparin 25,000 Units In 1/2 Ns 500 Ml) 25,000 units in 500 mls @ 19.595 mls/hr IV TITRATE [facility]; Protocol Last Titration: 01/23/20 14:02 Dose: 13 units/kg/hr, 28.304 mls/hr Documented by: Sodium Chloride (Saline Flush) 30 ml IV DAILY@1700 [facility] Stop: 01/19/20 17:01 Last Admin: 01/19/20 18:27 Dose: 30 ml Documented by: - Exam Quality Assessment: Supplemental Oxygen, DVT Prophylaxis General: Alert, Oriented HEENT: Pupils Equal, Pupils Reactive, EOMI, Mucous Membr. Moist/[place] Neck: Supple Lungs: Clear to Auscultation, Normal Respiratory Effort Cardiovascular: Regular Rate, Regular Rhythm GI/Abdominal Exam: Normal Bowel Sounds, Soft, Non-Tender, No Organomegaly, No Distention, No Abnormal Bruit, No Mass, Pelvis Stable (Male) Exam: No Hernia, Normal Inspection, Normal Prostate, Circumcised Back Exam: Normal Inspection, Full Range of Motion Extremities: Normal Inspection, Normal Range of Motion, Non-Tender, No Pedal Edema, Normal Capillary Refill Skin: Warm, Dry, Intact Wound/Incisions: Healing Well Neurological: No New Focal Deficit Psy/Mental Status: Alert, Normal Affect, Normal Mood Sepsis Event Note - Evaluation Sepsis Screening Result: No Definite Risk - Focused Exam Vital Signs: Vital Signs Temp Pulse Pulse Resp BP BP Pulse Ox 01/25/20 09:25 01/25/20 09:23 94 112/67 01/25/20 09:22 97.3 F 94 20 112/67 95 01/25/20 05:00 97.8 F 95 20 118/85 94 L 01/25/20 01:22 96.6 F L 92 20 93 L Pulse Ox 01/25/20 09:25 95 01/25/20 09:23 01/25/20 09:22 01/25/20 05:00 01/25/20 01:22 - Problem List & Annotations (1) Elevated d-dimer SNOMED Code(s): 230952257 Code(s): R79.89 - OTHER SPECIFIED ABNORMAL FINDINGS OF BLOOD CHEMISTRY Status: Acute Current Visit: Yes - Problem List Review Problem List Initiated/Reviewed/Updated: Yes - Plan Plan:: 79 year old male who presented with shortness of breath, cough, fever and hypoxia. Positive for Covid 19 pneumonia and on supplemental oxygen. 1. Covid 19 pneumonia symptoms started around 10 january Positive covid 19 screen on 01/13 Completed remdesivir -Continue Dexamethasone to complete 10-day course - Has received Plasma on 01/15 and 01/16 - pro-calcitonin levels: low -D-dimer elevated. -Sent for CTA chest -Continue Eliquis for DVT prophylaxis 2. Acute respiratory failure with hypoxia due to COVID-19 pneumonia Continue supplemental oxygen and wean off as able 2. Elevated D-dimer D-dimer CTA chest rule out PE Eliquis for DVT prophylaxis 3. Diabetes : Hold metformin Continue glipizide Follow blood sugars Use supplemental insulin and hypoglycemia treatment as needed 4. Obstructive sleep apnea Use CPAP at night 5. Coronary artery disease Continue aspirin, metoprolol, Resume Statin 6. Atrial fibrillation Rate control with metoprolol Continue anticoagulation
[2020-01-25] MEDS ORDERED: Iopamidol 755 Mg/ML 100 ML Bottle IVPUSH ONE (12:37)
--- NOTE | 2020-01-25 14:21 | CT ---
EXAMINATION: Chest w Cont SEX: Male AGE: 79 years CLINICAL HISTORY: [id number] hypertensive 236 pound diabetic male with shortness of breath and abnormally elevated serum D dimer 3200. Abnormal plain CXR 15 January 2020. Scan technique: Volume acquisition of data from the chest (bony thorax, lungs and mediastinum) obtained during the intravenous administration 79 cc nonionic Isovue 370 contrast at 5 cc/s via injector while patient was lying supine on the Siemens multislice scanner [place], [place]. All data archived in the PACS system for storage, reformatting axial/sagittal/coronal planes and study (lung/mediastinal windows). Interpretation: ABNORMAL. 1. Extensive, multilobar peripheral "groundglass" interstitial densities involving both lung jimenez characteristic appearance of COVID19 pneumonia. Clinical? No underlying air bronchograms. Paratracheal lymph nodes (subcentimeter, 11 and 15 mm diameter). No subcarinal mediastinal or hilar lymphadenopathy. 2. No suspicious parenchymal lung mass lesion. 3. No atelectasis or collapse. 4. No pneumothorax or pneumomediastinum. No free subdiaphragmatic air. Cholecystectomy. 5. Mildly enlarged heart but no pulmonary vascular congestion or alveolar edema. No pericardial effusion. 6. No cystic or bullous emphysematous lesions. Midline tracheal bronchial airway unremarkable. 7. Normal caliber thoracic aorta. No intraluminal filling defect or thrombus identified in the main pulmonary artery circulation i.e. low probability pulmonary embolism although peripheral vasculitis possible. 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 No proximal main pulmonary artery thrombosis or pleural effusions. Mild cardiomegaly. No lung mass or focal lobar atelectasis/collapse.
[2020-01-25] MEDS: FENOFIBRATE 54 MG PO SCH (21:02)
[2020-01-25] MEDS: Aspirin 81 MG Tab.EC PO SCH (21:03)
[2020-01-25] MEDS: Simvastatin 10 MG Tab PO SCH (21:04)
[2020-01-25] MEDS: Gabapentin 300 MG Cap PO SCH (21:05)
[2020-01-25] MEDS: Pantoprazole 40 MG Tab.CR PO SCH (21:05)
[2020-01-25] MEDS: Acetaminophen 325 MG Tab PO PRN (21:27)
[2020-01-25] MEDS: Sodium Chloride 0.9% 10 ML Syringe FLUSH PRN (21:29)
[2020-01-26 07:26] LABS: ANION GAP 5.1 mEq/L (7-13); CHLORIDE,CL 101 mmol/L (98-107); SODIUM,NA 136 mmol/L (136-145)
[2020-01-26] MEDS: Insulin Lispro 100 Units/ML 3 ML Vial SUBCUT SCH ×2 (08:49→12:01)
[2020-01-26] MEDS: Tamsulosin 0.4 MG Cap.ER PO SCH (08:52)
[2020-01-26] MEDS: Loratadine 10 MG Tab PO SCH (08:52)
[2020-01-26] MEDS: Apixaban 5 MG Tab PO SCH (08:52)
[2020-01-26] MEDS: Furosemide 40 MG Tab PO SCH (08:53)
[2020-01-26] MEDS: Metoprolol Tartrate 25 MG Tab PO SCH (08:53)
[2020-01-26] MEDS: Multivitamins, Therapeutic with Minerals Tab PO SCH (08:54)
[2020-01-26] MEDS: Allopurinol 100 MG Tab PO SCH (08:54)
[2020-01-26] MEDS: Citalopram 20 MG Tab PO SCH (08:54)
[2020-01-26] MEDS: rOPINIRole 2 MG Tab PO SCH ×2 (08:54→14:35)
--- NOTE | 2020-01-26 10:43 | PCM.DCSUM1 ---
Discharge Summary - Hospital Course Free Text/Narrative:: Oliverio is 79 year old male who presented with shortness of breath, cough, fever and hypoxia. He is positive for Covid 19 pneumonia. He was admitted for acute respiratory failure due to Covid pneumonia requiring supplemental oxygen. Patient did receive remdesivir, convalescent plasma and dexamethasone. He had a CTA chest PE protocol that was negative for PE. His condition generally improved but was unable to be weaned off oxygen. He required 1 to 2 L at rest and 2 L with activity. He was safely discharged home. He will follow-up with PCP. Diagnosis: Stroke: No - Discharge Data Discharge Date: 01/26/20 Discharge Disposition: Home, Self-Care 01 Condition: Good - Referral to Home Health Primary Care Physician: Salud Odom PA-C - Discharge Diagnosis/Problem(s) (1) Elevated d-dimer SNOMED Code(s): 067834962 ICD Code: R79.89 - OTHER SPECIFIED ABNORMAL FINDINGS OF BLOOD CHEMISTRY Status: Acute Current Visit: Yes - Patient Instructions Diet: Heart Healthy Diet Fluid Restriction: 1500 mL Activity: As Tolerated Showering/Bathing: May Shower Notify Provider of: Fever, Increased Pain, Swelling and Redness, Nausea and/or Vomiting - Discharge Plan *PRESCRIPTION DRUG MONITORING PROGRAM REVIEWED*: Not Applicable *COPY OF PRESCRIPTION DRUG MONITORING REPORT IN PATIENT [place]: Not Applicable Home Medications: Home Meds Glucosamine 1 bottle PO DAILY 11/10/13 [History] Lutein 1 cap PO DAILY 11/10/13 [History] Multivitaminn/Minerals 1 tab PO DAILY 11/10/13 [History] Simvastatin [Zocor] 40 mg PO BEDTIME 11/10/13 [History] allopurinoL [Zyloprim] 100 mg PO DAILY 11/10/13 [History] Aspirin [Halfprin] 81 mg PO BEDTIME 05/27/16 [History] Citalopram [Celexa] 12.5 mg PO BEDTIME 05/27/16 [History] Loratadine 10 mg PO DAILY 05/27/16 [History] Metoprolol Tartrate 12.5 mg PO BID 05/27/16 [History] Tamsulosin HCl [Flomax] 0.4 mg PO DAILY 05/27/16 [History] rOPINIRole HCl [rOPINIRole] 2 mg PO TID 05/27/16 [History] Fenofibrate 108 mg PO BEDTIME 01/15/20 [History] Furosemide 40 mg PO DAILY 01/15/20 [History] Gabapentin [Neurontin] 300 mg PO BEDTIME 01/15/20 [History] glipiZIDE [Glucotrol] 5 mg PO BID 01/15/20 [History] Oxygen Therapy Mode: Nasal Cannula Patient Handouts: COVID-19 Frequently Asked Questions, COVID-19: How to Protect Yourself and Others - CDC, Infection Prevention in the Home, Community-Acquired Pneumonia, Adult, [id number], Prevent the Spread of COVID-19 if You Are Sick - [facility] Referrals: Salud Odom PA-C [Primary Care Provider] - Dimitri Freed NP [Nurse Practitioner] - - Discharge Summary/Plan Comment DC Time >30 min.: Yes - General Info Date of Service: 01/26/20 Admission Dx/Problem (Free Text: Admission Diagnosis/Problem Admission Diagnosis/Problem acute respiratory failure with hypoxia due to Covid pneumonia Subjective Update: Patient seen and examined today. Doing okay. Functional Status: Reports: Pain Controlled - Review of Systems General: Reports: No Symptoms HEENT: Reports: No Symptoms Pulmonary: Reports: No Symptoms Cardiovascular: Reports: No Symptoms Gastrointestinal: Reports: No Symptoms Genitourinary: Reports: No Symptoms Musculoskeletal: Reports: No Symptoms Skin: Reports: No Symptoms Neurological: Reports: No Symptoms Psychiatric: Reports: No Symptoms - Patient Data Vitals - Most Recent: Last Vital Signs Temp 98.0 F 01/26/20 08:00 Pulse 60 01/26/20 08:53 Resp 18 01/26/20 08:00 BP 121/76 01/26/20 08:53 Pulse Ox 92 L 01/26/20 10:00 Weight - Most Recent: 236 lb 9.6 oz I&O - Last 24 hours: Intake & Output 01/25/20 01/26/20 01/26/20 22:59 06:59 14:59 Intake Total 1720 500 860 Output Total 1250 575 500 Balance 470 -75 360 Lab Results - Last 24 hrs: Laboratory Results - last 24 hr 01/25/20 01/25/20 01/25/20 Range/Units 10:40 10:40 10:40 WBC 10.0 (5.0-10.0) 10^3/uL RBC 3.45 L (4.6-6.2) 10^6/uL Hgb 10.4 L (14.0-18.0) g/dL Hct 32.3 L (40.0-54.0) % MCV 93.6 (80-100) fL MCH 30.1 (27.0-34.0) pg MCHC 32.2 L (33.0-35.0) g/dL Plt Count 322 (150-450) 10^3/uL PT (9.0-12.0) SEC INR (0.9-1.2) D-Dimer, Quantitative 3210 H (0-400) ng/mL Sodium 138 (136-145) mmol/L Potassium 3.9 (3.5-5.1) mmol/L Chloride 101 (98-107) mmol/L Carbon Dioxide 30 (21-32) mmol/L Anion Gap 10.9 (7-13) mEq/L BUN 17 (7-18) mg/dL Creatinine 1.23 (0.70-1.30) mg/dL Est Cr Clr Drug Dosing 51.02 mL/min Estimated GFR (MDRD) 57 BUN/Creatinine Ratio 13.8 (No establ ref range) Glucose 199 H (74-99) mg/dL POC Glucose (83-110) mg/dl Calcium 8.1 L (8.5-10.1) mg/dL Ferritin (26-388) mg/mL Total Bilirubin 0.5 (0.2-1.0) mg/dL AST 90 H (15-37) U/L ALT 76 H (16-63) U/L Alkaline Phosphatase 95 (46-116) U/L Lactate Dehydrogenase 222 (85-227) U/L Troponin I (0.000-0.056) ng/mL Total Protein 5.5 L (6.4-8.2) g/dL Albumin 1.6 L (3.4-5.0) g/dL Globulin 3.9 Albumin/Globulin Ratio 0.41 01/25/20 01/25/20 01/25/20 Range/Units 10:40 10:40 12:05 WBC (5.0-10.0) 10^3/uL RBC (4.6-6.2) 10^6/uL Hgb (14.0-18.0) g/dL Hct (40.0-54.0) % MCV (80-100) fL MCH (27.0-34.0) pg MCHC (33.0-35.0) g/dL Plt Count (150-450) 10^3/uL PT 13.0 H (9.0-12.0) SEC INR 1.4 H (0.9-1.2) D-Dimer, Quantitative (0-400) ng/mL Sodium (136-145) mmol/L Potassium (3.5-5.1) mmol/L Chloride (98-107) mmol/L Carbon Dioxide (21-32) mmol/L Anion Gap (7-13) mEq/L BUN (7-18) mg/dL Creatinine (0.70-1.30) mg/dL Est Cr Clr Drug Dosing mL/min Estimated GFR (MDRD) BUN/Creatinine Ratio (No establ ref range) Glucose (74-99) mg/dL POC Glucose 166 H (83-110) mg/dl Calcium (8.5-10.1) mg/dL Ferritin 380 (26-388) mg/mL Total Bilirubin (0.2-1.0) mg/dL AST (15-37) U/L ALT (16-63) U/L Alkaline Phosphatase (46-116) U/L Lactate Dehydrogenase (85-227) U/L Troponin I (0.000-0.056) ng/mL Total Protein (6.4-8.2) g/dL Albumin (3.4-5.0) g/dL Globulin Albumin/Globulin Ratio 01/25/20 01/25/20 01/26/20 Range/Units 17:06 20:53 06:55 WBC 11.6 H (5.0-10.0) 10^3/uL RBC 3.58 L (4.6-6.2) 10^6/uL Hgb 10.9 L (14.0-18.0) g/dL Hct 33.3 L (40.0-54.0) % MCV 93.0 (80-100) fL MCH 30.4 (27.0-34.0) pg MCHC 32.7 L (33.0-35.0) g/dL Plt Count 326 (150-450) 10^3/uL PT (9.0-12.0) SEC INR (0.9-1.2) D-Dimer, Quantitative (0-400) ng/mL Sodium (136-145) mmol/L Potassium (3.5-5.1) mmol/L Chloride (98-107) mmol/L Carbon Dioxide (21-32) mmol/L Anion Gap (7-13) mEq/L BUN (7-18) mg/dL Creatinine (0.70-1.30) mg/dL Est Cr Clr Drug Dosing mL/min Estimated GFR (MDRD) BUN/Creatinine Ratio (No establ ref range) Glucose (74-99) mg/dL POC Glucose 125 H 112 H (83-110) mg/dl Calcium (8.5-10.1) mg/dL Ferritin (26-388) mg/mL Total Bilirubin (0.2-1.0) mg/dL AST (15-37) U/L ALT (16-63) U/L Alkaline Phosphatase (46-116) U/L Lactate Dehydrogenase (85-227) U/L Troponin I (0.000-0.056) ng/mL Total Protein (6.4-8.2) g/dL Albumin (3.4-5.0) g/dL Globulin Albumin/Globulin Ratio 01/26/20 01/26/20 01/26/20 Range/Units 06:55 06:55 06:55 WBC (5.0-10.0) 10^3/uL RBC (4.6-6.2) 10^6/uL Hgb (14.0-18.0) g/dL Hct (40.0-54.0) % MCV (80-100) fL MCH (27.0-34.0) pg MCHC (33.0-35.0) g/dL Plt Count (150-450) 10^3/uL PT 14.1 H (9.0-12.0) SEC INR 1.5 H (0.9-1.2) D-Dimer, Quantitative 3310 H (0-400) ng/mL Sodium 136 (136-145) mmol/L Potassium 4.1 (3.5-5.1) mmol/L Chloride 101 (98-107) mmol/L Carbon Dioxide 34 H (21-32) mmol/L Anion Gap 5.1 L (7-13) mEq/L BUN 17 (7-18) mg/dL Creatinine 1.27 (0.70-1.30) mg/dL Est Cr Clr Drug Dosing 49.41 mL/min Estimated GFR (MDRD) 55 BUN/Creatinine Ratio 13.4 (No establ ref range) Glucose 116 H (74-99) mg/dL POC Glucose (83-110) mg/dl Calcium 8.3 L (8.5-10.1) mg/dL Ferritin 427 H (26-388) mg/mL Total Bilirubin 0.6 (0.2-1.0) mg/dL AST 74 H (15-37) U/L ALT 69 H (16-63) U/L Alkaline Phosphatase 98 (46-116) U/L Lactate Dehydrogenase 162 (85-227) U/L Troponin I < 0.017 (0.000-0.056) ng/mL Total Protein 6.1 L (6.4-8.2) g/dL Albumin 1.5 L (3.4-5.0) g/dL Globulin 4.6 Albumin/Globulin Ratio 0.33 11/20/20 Range/Units 08:48 WBC (5.0-10.0) 10^3/uL RBC (4.6-6.2) 10^6/uL Hgb (14.0-18.0) g/dL Hct (40.0-54.0) % MCV (80-100) fL MCH (27.0-34.0) pg MCHC (33.0-35.0) g/dL Plt Count (150-450) 10^3/uL PT (9.0-12.0) SEC INR (0.9-1.2) D-Dimer, Quantitative (0-400) ng/mL Sodium (136-145) mmol/L Potassium (3.5-5.1) mmol/L Chloride (98-107) mmol/L Carbon Dioxide (21-32) mmol/L Anion Gap (7-13) mEq/L BUN (7-18) mg/dL Creatinine (0.70-1.30) mg/dL Est Cr Clr Drug Dosing mL/min Estimated GFR (MDRD) BUN/Creatinine Ratio (No establ ref range) Glucose (74-99) mg/dL POC Glucose 141 H (83-110) mg/dl Calcium (8.5-10.1) mg/dL Ferritin (26-388) mg/mL Total Bilirubin (0.2-1.0) mg/dL AST (15-37) U/L ALT (16-63) U/L Alkaline Phosphatase (46-116) U/L Lactate Dehydrogenase (85-227) U/L Troponin I (0.000-0.056) ng/mL Total Protein (6.4-8.2) g/dL Albumin (3.4-5.0) g/dL Globulin Albumin/Globulin Ratio Med Orders - Current: Current Medications Acetaminophen (Tylenol) 650 mg PO Q4H PRN PRN Reason: Pain (Mild 1-3)/fever Last Admin: 01/25/20 21:27 Dose: 650 mg Documented by: Allopurinol (Zyloprim) 100 mg PO DAILY [facility] Last Admin: 01/26/20 08:54 Dose: 100 mg Documented by: Apixaban (Eliquis) 5 mg PO BID [facility] Last Admin: 01/26/20 08:52 Dose: 5 mg Documented by: Aspirin (Halfprin) 81 mg PO BEDTIME [facility] Last Admin: 01/25/20 21:03 Dose: 81 mg Documented by: Citalopram Hydrobromide (Celexa) 10 mg PO DAILY [facility] Last Admin: 01/26/20 08:54 Dose: 10 mg Documented by: Dextrose/Water (Dextrose 50% In Water) 25 ml IVPUSH Q1H PRN PRN Reason: blood sugar <70 Dextrose/Water (Dextrose 50% In Water) 50 ml IV ASDIRECTED PRN PRN Reason: Hypoglycemia Furosemide (Lasix) 40 mg PO DAILY [facility] Last Admin: 01/26/20 08:53 Dose: 40 mg Documented by: Gabapentin (Neurontin) 300 mg PO BEDTIME [facility] Last Admin: 01/25/20 21:05 Dose: 300 mg Documented by: Glucagon (Glucagen) 1 mg IM ASDIRECTED PRN PRN Reason: Hypoglycemia Insulin Human Lispro (Humalog) 0 unit SUBCUT WITHMEALSANDBED [facility]; Protocol Last Admin: 01/26/20 08:49 Dose: Not Given Documented by: Loratadine (Claritin) 10 mg PO DAILY [facility] Last Admin: 01/26/20 08:52 Dose: 10 mg Documented by: Metoprolol Tartrate (Lopressor) 12.5 mg PO BID [facility] Last Admin: 01/26/20 08:53 Dose: 12.5 mg Documented by: Multivitamins/Minerals (Vitamins And Minerals) 1 tab PO DAILY [facility] Last Admin: 01/26/20 08:54 Dose: 1 tab Documented by: Ondansetron HCl (Zofran Odt) 4 mg PO Q6H PRN PRN Reason: nausea, able to take PO Ondansetron HCl (Zofran) 4 mg IVPUSH Q6H PRN PRN Reason: Nausea/Vomiting Pantoprazole Sodium (Protonix) 40 mg PO BEDTIME [facility] Last Admin: 01/25/20 21:05 Dose: 40 mg Documented by: Fenofibrate 54 Mg (Tab *Own Med*) 0 each PO BEDTIME [facility] Last Admin: 01/25/20 21:02 Dose: 1 each Documented by: Ropinirole HCl (Requip) 2 mg PO TID [facility] Last Admin: 01/26/20 08:54 Dose: 2 mg Documented by: Simvastatin (Zocor) 40 mg PO BEDTIME [facility] Last Admin: 01/25/20 21:04 Dose: 40 mg Documented by: Sodium Chloride (Saline Flush) 10 ml FLUSH ASDIRECTED PRN PRN Reason: Keep Vein Open Last Admin: 01/25/20 21:29 Dose: 10 ml Documented by: Tamsulosin HCl (Flomax) 0.4 mg PO DAILY [facility] Last Admin: 01/26/20 08:52 Dose: 0.4 mg Documented by: Zolpidem Tartrate (Ambien) 5 mg PO BEDTIME PRN PRN Reason: Sleep Discontinued Medications Apixaban (Eliquis) 5 mg PO BID [facility] Last Admin: 01/18/20 08:52 Dose: 5 mg Documented by: Furosemide (Lasix) 20 mg IVPUSH NOW ONE Stop: 01/22/20 17:15 Last Admin: 01/22/20 17:50 Dose: 20 mg Documented by: Furosemide (Lasix) 20 mg IVPUSH ONETIME ONE Stop: 01/23/20 13:02 Last Admin: 01/23/20 13:41 Dose: 20 mg Documented by: Glipizide (Glucotrol) 5 mg PO BID [facility] Last Admin: 01/15/20 21:21 Dose: Not Given Documented by: Heparin Sodium (Porcine) (Heparin Sodium) 5,000 units SUBCUT Q8HR [facility] Last Admin: 01/15/20 17:38 Dose: Not Given Documented by: Heparin Sodium (Porcine) (Heparin Sodium) 1,000 units IVPUSH .BOLUS ONE Stop: 01/18/20 19:21 Last Admin: 01/18/20 19:39 Dose: 1,000 units Documented by: Heparin Sodium (Porcine) (Heparin Sodium) 1,000 units IVPUSH .BOLUS ONE Stop: 01/20/20 11:23 Last Admin: 01/20/20 12:17 Dose: 1,000 units Documented by: Heparin Sodium (Porcine) (Heparin Sodium) 1,000 units IVPUSH BOLUS ONE Stop: 01/20/20 20:01 Last Admin: 01/20/20 20:39 Dose: 1,000 units Documented by: Heparin Sodium (Porcine) (Heparin Sodium) 1,000 units IVPUSH .BOLUS ONE Stop: 01/21/20 10:34 Last Admin: 01/21/20 10:50 Dose: 1,000 units Documented by: Remdesivir 200 mg/ Sodium (Chloride) 210 mls @ 210 mls/hr IV ONETIME ONE Stop: 01/15/20 16:59 Last Admin: 01/15/20 16:23 Dose: 210 mls/hr Documented by: Remdesivir 100 mg/ Sodium (Chloride) 230 mls @ 230 mls/hr IV Q24H [facility] Stop: 01/19/20 16:59 Last Infusion: 01/19/20 17:30 Dose: Infused Documented by: Heparin Sodium/Sodium Chloride (Heparin 25,000 Units In 1/2 Ns 500 Ml) 25,000 units in 500 mls @ 19.595 mls/hr IV TITRATE [facility]; Protocol Last Titration: 01/23/20 14:02 Dose: 13 units/kg/hr, 28.304 mls/hr Documented by: Iopamidol (Isovue-370 (76%)) 100 ml IVPUSH ONETIME ONE Stop: 01/25/20 12:38 Last Admin: 01/25/20 13:17 Dose: 79 ml Documented by: Sodium Chloride (Saline Flush) 30 ml IV DAILY@1700 [facility] Stop: 01/19/20 17:01 Last Admin: 01/19/20 18:27 Dose: 30 ml Documented by: - Exam Quality Assessment: Reports: Supplemental Oxygen, DVT Prophylaxis General: Reports: Alert, Oriented HEENT: Reports: Pupils Equal, Pupils Reactive, EOMI, Mucous Membr. Moist/[place] Neck: Reports: Supple Lungs: Reports: Clear to Auscultation, Normal Respiratory Effort Cardiovascular: Reports: Regular Rate, Regular Rhythm GI/Abdominal Exam: Normal Bowel Sounds, Soft, Non-Tender, No Organomegaly, No Distention, No Abnormal Bruit, No Mass, Pelvis Stable (Male) Exam: No Hernia, Normal Inspection, Normal Prostate, Circumcised Rectal (Males) Exam: Normal Exam, Normal Rectal Tone, Prostate Normal Back Exam: Reports: Normal Inspection, Full Range of Motion Extremities: Normal Inspection, Normal Range of Motion, Non-Tender, No Pedal Edema, Normal Capillary Refill Skin: Reports: Warm, Dry, Intact Wound/Incisions: Reports: Healing Well Neurological: Reports: No New Focal Deficit Psy/Mental Status: Reports: Alert, Normal Affect, Normal Mood
== END 2020-01-26 16:20 | disposition home or self-care (01) | DRG 177 ==
LOC: DL.MS 13:53
PROVIDERS: ADMIT Internal Medicine; ATTEND Student in an Organized Health Care Education/Training Program
PROC: XW033E5 Introduction of Remdesivir Anti-infective into Peripheral Vein, Percutaneous Approach, New Technology Group 5 (ICD-10-PCS; principal; 2020-01-16)
PROC: XW13325 Transfusion of Convalescent Plasma (Nonautologous) into Peripheral Vein, Percutaneous Approach, New Technology Group 5 (ICD-10-PCS; 2020-01-16)
PROC: XW13325 Transfusion of Convalescent Plasma (Nonautologous) into Peripheral Vein, Percutaneous Approach, New Technology Group 5 (ICD-10-PCS; 2020-01-17)
DX: U07.1 COVID-19 (principal); J12.89 Other viral pneumonia; J96.01 Acute respiratory failure with hypoxia; E11.9 Type 2 diabetes mellitus without complications; R79.1 Abnormal coagulation profile; G47.33 Obstructive sleep apnea (adult) (pediatric); I25.10 Atherosclerotic heart disease of native coronary artery without angina pectoris; I48.91 Unspecified atrial fibrillation; Z79.84 Long term (current) use of oral hypoglycemic drugs; Z99.81 Dependence on supplemental oxygen; Z79.01 Long term (current) use of anticoagulants; Z79.82 Long term (current) use of aspirin
CPT/HCPCS: 36415; 36430; 71045; 71260; 80048; 80053; 80076; 82728; 82962; 83605; 83615; 83880; 84145; 84484; 85025; 85027; 85379; 85610; 85730; 86900; 86901; 87040; 87070; 87205; A9270-GY; J1644; J1815-GY; J1940; J7050; P9017; Q9967; U0002

== ENCOUNTER 2022-10-09 20:04 | Emergency (ER) | payer OTHER, MEDICARE | END 2022-10-09 20:28 | disposition home or self-care (01) | LOC: DL.ED 20:04 | DX: Z04.1 Encounter for examination and observation following transport accident (principal); I10 Essential (primary) hypertension; E78.00 Pure hypercholesterolemia, unspecified; K21.9 Gastro-esophageal reflux disease without esophagitis; I48.91 Unspecified atrial fibrillation; Z88.5 Allergy status to narcotic agent; Z88.8 Allergy status to other drugs, medicaments and biological substances | CPT/HCPCS: 99282; 99283 ==